=== PATIENT | female | born 1945 | race Caucasian/White ===

== ENCOUNTER 2019-10-15 14:40 | Emergency (ER) | payer MEDICARE, SELFPAY ==
[2019-10-15 14:50] VITALS: BP 172/87; PULSE 93; RESP 20; TEMP 36.7; O2SAT 98
--- NOTE | 2019-10-15 15:02 | ED.ABDPAIN ---
HPI - Abdominal Pain General Chief Complaint: Abdominal Pain Stated Complaint: dizzy, stomach pain Time Seen by Provider: 10/15/19 15:04 Related Data Allergies Allergy/AdvReac Type Severity Reaction Status Date / Time No Known Allergies Allergy Mild Unverified 07/04/18 09:00 No Known Allergies Allergy Uncoded 06/03/19 09:03 PMFSH Family History Family History (Updated 07/01/18 @ 09:51 by DOCTOR UNKNOWN) Other Cerebrovascular accident Hypertension Social History Social History Smoking status: Never smoker Alcohol intake: current
--- NOTE | 2019-10-15 15:19 | ED.DIZZY ---
HPI - Dizziness General Chief Complaint: Abdominal Pain Stated Complaint: dizzy, stomach pain Time Seen by Provider: 10/15/19 15:04 Source: patient and RN notes reviewed Mode of arrival: ambulatory Limitations: no limitations History of Present Illness HPI Narrative: 74-year-old female presents with episode of dizziness at home. She states that she bent over to sweet pickled fruit maker something off the floor and when she stood up she was significantly dizzy felt like she was going to fall and had difficulty with ambulation. Immediately after this she had nausea and a feeling of some cramping uncomfortable in her abdomen. She denied any significant abdominal pain states that was more nausea than pain. She states that the dizziness scared her and she was concerned and wanted to be evaluated. She states that she is significantly better at this time. MD elicited complaint: dizziness and difficulty walking Onset (ago): hour(s) (2-3) Timing: sudden onset Severity: moderate Description: room spinning , off-balance and difficulty walking Context: change in body position History of similar symptoms: No Exacerbating factors: change in body position Relieving factors: remaining still Associated symptoms: nausea Related Data Home Medications Medication Instructions Recorded Confirmed acetaminophen [Acetaminophen Extra 1,000 mg PO Q4-5H PRN 10/15/19 10/15/19 Strength] cetirizine [Zyrtec] 10 mg PO DAILY 10/15/19 10/15/19 cholecalciferol (vitamin D3) 2,000 unit PO DAILY 10/15/19 10/15/19 levothyroxine 88 mcg PO DAILY 10/15/19 10/15/19 losartan 50 mg PO DAILY 10/15/19 10/15/19 omeprazole 20 mg PO DAILY 10/15/19 10/15/19 pravastatin 20 mg PO HS 10/15/19 10/15/19 Allergies Allergy/AdvReac Type Severity Reaction Status Date / Time No Known Allergies Allergy Mild Unverified 07/04/18 09:00 No Known Allergies Allergy Uncoded 06/03/19 09:03 Review of Systems Constitutional: Constitutional: Denies chills and Denies fever(s) Eyes: Eyes: Reports no additional eye complaints ENT: Reports system reviewed and no additional complaints, except as documented Cardiovascular: Cardiovascular: Reports no additional cardiovascular complaints, Denies chest pain and Denies rapid heart rate Respiratory: Respiratory: Reports no additional respiratory complaints and Denies dyspnea Gastrointestinal: Gastrointestinal: Reports as per HPI and Reports no additional gastrointestinal complaints Musculoskeletal: Musculoskeletal: Reports no additional musculoskeletal complaints Neurologic: Reports system reviewed and no additional complaints, except as documented and Denies focal weakness Psychiatric: Psychiatric: Reports no additional psychiatric complaints Endocrine: Endocrine: Reports no additional endocrine complaints Hematologic/Lymphatic: Hematologic/Lymphatic: Reports no additional hematologic/lymphatic complaints PMFSH Past Medical History Medical History (Updated 10/15/19 @ 16:20 by Domenico Allen MD) Brain tumor (benign) Hypercholesteremia Hypertension Hypothyroidism Surgical History Surgical History (Updated 10/15/19 @ 16:20 by Domenico Allen MD) H/O: hysterectomy H/O: knee surgery History of cholecystectomy Family History Family History Other Cerebrovascular accident Hypertension Social History Social History Smoking status: Never smoker Alcohol intake: current Gender identity (if verbalized by the patient): Female Exam Const: General: healthy appearing, no acute distress and alert Nutritional Appearance: well nourished and obese centrally obese Orientation/consciousness: patient oriented x3 HENMT: Head: normal to inspection Ears: TM's normal bilaterally and TM abnormal General nose exam: Normal external nose present and Normal nares present Face and sinus: normal facial exam Mouth: Yes lip normal and Yes mois
[2019-10-15] MEDS: MECLIZINE HCL 25 MG TABLET PO (15:30)
[2019-10-15 15:39] LABS: Basophils Absolute Auto 0.05 K/mm3 (0.00-0.10); Basophils Percent Auto 0.6 % (0.0-1.0); Eosinophils Absolute Auto 0.27 K/mm3 (0.02-0.50); Eosinophils Percent Auto 3.4 % (1.0-6.0); Hematocrit 34.1 % (35.0-42.0); Hemoglobin 10.8 g/dL (11.7-13.8); Immature Granulocyte Absolute 0.01 K/mm3 (0.00-0.00); Immature Granulocyte Percent A 0.1 % (0.0-0.0); Lymphocytes Absolute Auto 1.47 K/mm3 (1.10-4.50); Lymphocytes Percent Auto 18.8 % (18.0-42.0); Mean Corpuscular HGB Conc 31.7 g/dL (32.0-36.0); Mean Corpuscular Hemoglobin 26.5 pg (27.0-31.0); Mean Corpuscular Volume 83.8 fL (78.0-102.0); Mean Platelet Volume 9.7 fl (9.2-11.8); Monocytes Absolute Auto 0.65 K/mm3 (0.10-0.90); Monocytes Percent Auto 8.3 % (2.0-11.0); Neutrophils Absolute Auto 5.4 K/mm3 (1.7-7.2); Neutrophils Percent Auto 68.8 % (50.0-70.0); Platelet Count Result 293 K/mm3 (150-420); Red Blood Count 4.07 M/mm3 (4.20-5.40); Red Cell Distribution Width 14.6 % (11.6-14.4); White Blood Count 7.8 K/mm3 (4.8-10.8)
[2019-10-15 15:39] LABS: Add Urine Microscopic? YES; Appearance Urine Clear (Clear); Bilirubin Urine Negative (Negative); Blood Urine Negative (Negative); Color Urine Yellow (Yellow); Glucose Urine UA Negative (Negative); Ketones Urine Trace (Negative); Leukocyte Esterase Ur Negative LEU/UL (Negative); Nitrate Urine Negative (Negative); Protein Urine Negative (Negative); Specific Grav Ur 1.025 (1.010-1.020); Urobilinogen Urine 0.2 mg/dL (0.2-1.0); pH Urine 5.5 (5.0-8.0)
[2019-10-15 15:45] LABS: Bacteria Urine 4+ /hpf; Mucus Urine Few /lpf; RBC Urine 0-2 /hpf (0-2); Squamous Epithelial Cell Urine Many /hpf (Few); WBC Urine 0-3 /hpf (0-3)
[2019-10-15 15:49] LABS: CRP 0.8 mg/dL (0.0-0.9)
[2019-10-15 16:06] LABS: Alanine Aminotransferase 19 U/L (14-59); Albumin Level 3.8 g/dL (3.4-5.0); Alkaline Phosphatase 66 U/L (46-116); Anion Gap 12.9 mmol/L (7-16); Aspartate Amino Transferase 19 U/L (15-37); Bilirubin,Total 0.3 mg/dL (0.00-1.00); Blood Urea Nitrogen 18 mg/dL (7-18); Carbon Dioxide 26 mmol/L (21-32); Chloride 103 mmol/L (98-108); Estimated CRCL calculation 44 ml/min; Estimated Glomerular Filt Rate 50; Glucose 95 mg/dL (70-99); Osmolality Calculated 287 mOsm/kg (285-295); Potassium 3.9 mmol/L (3.5-5.1); Sodium 138 mmol/L (136-145); Total Protein 7.2 g/dL (6.4-8.2)
[2019-10-15 16:23] VITALS: BP 120/68; PULSE 77; RESP 16; O2SAT 96
[2019-10-16 11:02] LABS: Immature Reticulocyte Fraction 10.7 % (2.0-16.52); Reticulocyte Hemoglobin Conten 31.4 pg (28.0-35.0); Reticulocyte Percent 1.24 % (0.50-1.50); Reticulocytes Absolute 0.05 M/mm3 (0.02-0.1)
[2019-10-16 11:21] LABS: Ferritin 61 ng/mL (8-252); Iron 34 ug/dL (50-170); Percent Iron Saturation 11 % (12-57)
== END 2019-10-15 16:24 | disposition home or self-care (01) ==
PROVIDERS: Emergency Provider Emergency Medicine; PCP Internal Medicine
DX: H81.10 Benign paroxysmal vertigo, unspecified ear (principal); E78.00 Pure hypercholesterolemia, unspecified; I10 Essential (primary) hypertension; E03.9 Hypothyroidism, unspecified
CPT/HCPCS: 36415; 80053; 81001; 82728; 83540; 83550; 85025; 85046; 86140; 99283; A9270

== ENCOUNTER 2020-01-26 07:53 | Outpatient (CLI) | payer MEDICARE, SELFPAY ==
--- NOTE | ~2020-01-26 | XR_ITS ---
EXAMINATION: XR shoulder RT min 2V DATE: 01/26/2020 08:42 INDICATION: Right shoulder pain. TECHNIQUE: 4 views of right shoulder were obtained. COMPARISON: None. FINDINGS: Bone alignment is normal. No fracture. There is mild osteoarthritis of glenohumeral joint a nd moderate osteoarthritis of acromioclavicular joint. IMPRESSION: 1. Polyarticular osteoarthritis. Reviewed, dictated and finalized at location A.
[2020-01-26 08:07] LABS: Basophils Absolute Auto 0.05 K/mm3 (0.00-0.10); Basophils Percent Auto 0.8 % (0.0-1.0); Eosinophils Absolute Auto 0.22 K/mm3 (0.02-0.50); Eosinophils Percent Auto 3.3 % (1.0-6.0); Hematocrit 37.4 % (35.0-42.0); Hemoglobin 11.7 g/dL (11.7-13.8); Immature Granulocyte Absolute 0.02 K/mm3 (0.00-0.00); Immature Granulocyte Percent A 0.3 % (0.0-0.0); Lymphocytes Absolute Auto 1.67 K/mm3 (1.10-4.50); Lymphocytes Percent Auto 25.2 % (18.0-42.0); Mean Corpuscular HGB Conc 31.3 g/dL (32.0-36.0); Mean Corpuscular Hemoglobin 26.8 pg (27.0-31.0); Mean Corpuscular Volume 85.6 fL (78.0-102.0); Mean Platelet Volume 9.1 fl (9.2-11.8); Monocytes Percent Auto 7.5 % (2.0-11.0); Neutrophils Absolute Auto 4.2 K/mm3 (1.7-7.2); Neutrophils Percent Auto 62.9 % (50.0-70.0); Platelet Count Result 307 K/mm3 (150-420); Red Blood Count 4.37 M/mm3 (4.20-5.40); Red Cell Distribution Width 14.8 % (11.6-14.4); White Blood Count 6.6 K/mm3 (4.8-10.8)
[2020-01-26 08:17] LABS: Hemoglobin A1C 5.9 % (<5.7)
[2020-01-26 08:19] LABS: Add Urine Microscopic? NO; Appearance Urine Clear (Clear); Bilirubin Urine Negative (Negative); Blood Urine Negative (Negative); Color Urine Yellow (Yellow); Glucose Urine UA Negative (Negative); Ketones Urine Negative (Negative); Leukocyte Esterase Ur Negative (Negative); Nitrate Urine Negative (Negative); Protein Urine Negative (Negative); Urobilinogen Urine 0.2 mg/dL (0.2-1.0)
[2020-01-26 08:32] LABS: MALB Creatinine Ratio 5.2 mg/g (0-30); Microalbumin Urine Random 4.1 mg/L
[2020-01-26 09:21] LABS: Erythrocyte Sedimentation Rate 27 mm/hr (0-20)
[2020-01-26 09:32] LABS: Alanine Aminotransferase 16 U/L (14-59); Alkaline Phosphatase 68 U/L (46-116); Anion Gap 9.3 mmol/L (7-16); Aspartate Amino Transferase 18 U/L (15-37); Bilirubin,Total 0.5 mg/dL (0.00-1.00); Blood Urea Nitrogen 13 mg/dL (7-18); Calcium 9.3 mg/dL (8.5-10.1); Carbon Dioxide 34 mmol/L (21-32); Chloride 103 mmol/L (98-108); Cholesterol 240 mg/dL (0-200); Creatine Kinase 81 U/L (26-192); Estimated Glomerular Filt Rate 57; Ferritin 71 ng/mL (8-252); Free T4 Free Thyroxine 1.23 ng/dL (0.76-1.46); Glucose 93 mg/dL (70-99); HDL Direct 54 mg/dL (40-60); Iron 71 ug/dL (50-170); LDL Cholesterol Calculated 155 mg/dL (<130); Osmolality Calculated 294 mOsm/kg (285-295); Percent Iron Saturation 21 % (12-57); Potassium 4.3 mmol/L (3.5-5.1); Sodium 142 mmol/L (136-145); Thyroid Stimulating Hormone 1.15 uIU/mL (0.36-3.74); Total Protein 7.1 g/dL (6.4-8.2); Triglycerides 156 mg/dL (0-150); Vitamin B12 257 pg/mL (193-986)
[2020-01-29 10:48] LABS: Red Blood Cell Folate 727 ng/mL RBC (>280)
[2020-01-30 10:33] LABS: Vitamin D 25 Hydroxy 29 ng/mL (30-100)
== END 2020-01-26 07:54 | disposition home or self-care (01) ==
LOC: CHSLAB 07:56
PROVIDERS: PCP Internal Medicine; Visit Provider Internal Medicine
DX: M81.0 Age-related osteoporosis without current pathological fracture (principal); D64.9 Anemia, unspecified; I10 Essential (primary) hypertension; E11.9 Type 2 diabetes mellitus without complications; E03.4 Atrophy of thyroid (acquired); D86.2 Sarcoidosis of lung with sarcoidosis of lymph nodes; M25.511 Pain in right shoulder
CPT/HCPCS: 36415; 73030; 80053; 80061; 81003; 82043; 82306; 82550; 82607; 82728; 82747; 83036; 83540; 83550; 84439; 84443; 84481; 85025; 85652

== ENCOUNTER 2020-02-02 08:54 | Outpatient (RCR) | payer MEDICARE, SELFPAY ==
--- NOTE | 2020-02-02 14:49 | PTOPEVAL ---
Thank you for referring Josee Roman to [facility] [place]. Please review, sign, date and return this plan of care YESY. I agree with and certify that the following plan of care is medically necessary. Referring Physician Date Admitting Provider: Attending Provider: Rossy Ray MD Referring Provider: *PT Outpatient Evaluation Start: 02/02/20 09:08 Freq: Status: Active Protocol: Document 02/02/20 09:05 [facility] (Rec: 02/02/20 10:00 [facility] [id number]) Therapy Assessment Status Assessment Status Assessment Status Evaluation Outpatient Past Medical History Neurological History Hx Other Neurological Disorders Yes: meningioma with surgical removal Cardiovascular History Hx Hypercholesterolemia Yes Hx Hypertension Yes Gastrointestinal History Hx Cholecystectomy Yes Hx Gastroesophageal Reflux Disease Yes Musculoskeletal History Hx Joint Replacement Yes: R knee Hematological History Hx Other Hematological Disorders Yes: sarcoidosis Endocrine History Hx Hypothyroidism Yes Reproductive History Hx Hysterectomy Yes Evaluation Information Problem Diagnosis back pain, shoulder pain, R knee pain Onset 01/28/20 Additional Evaluation Detail quick dash = 56% LEFS = 47% oswestry = 50% Subjective Information patient reports she has been Query Text:As Reported By Patient/ having pain in the back for Family about 2 weeks. she reports she has had pain in the shooulders for about 2-3 months. she reports no injuries to either. she reports she had an x-ray of the R shoulder showing arthritis. she reports she has pain also in the back and down into the R thigh/leg. she reports she has increased pain in the back with sitting for increased time. she reports less pain with walking . she reports she has increased pain in the R shoulder with opening jars, cans, and reaching overhead. Prior Level of Function Comments Additional Prior Level of Function patient reports she has been Comments unable to complete her home activities without meds and
--- NOTE | 2020-02-02 15:07 | PTOPEVAL ---
Thank you for referring Josee Roman to [facility]. Please review, sign, date and return this plan of care YESY. I agree with and certify that the following plan of care is medically necessary. Referring Physician Date Admitting Provider: Attending Provider: Rossy Ray MD Referring Provider: *PT Outpatient Evaluation Start: 02/02/20 09:08 Freq: Status: Active Protocol: Document 02/02/20 09:05 [facility] (Rec: 02/02/20 10:00 [facility] [id number]) Therapy Assessment Status Assessment Status Assessment Status Evaluation Outpatient Past Medical History Neurological History Hx Other Neurological Disorders Yes: meningioma with surgical removal Cardiovascular History Hx Hypercholesterolemia Yes Hx Hypertension Yes Gastrointestinal History Hx Cholecystectomy Yes Hx Gastroesophageal Reflux Disease Yes Musculoskeletal History Hx Joint Replacement Yes: R knee Hematological History Hx Other Hematological Disorders Yes: sarcoidosis Endocrine History Hx Hypothyroidism Yes Reproductive History Hx Hysterectomy Yes Evaluation Information Problem Diagnosis back pain, shoulder pain, R knee pain Onset 01/28/20 Additional Evaluation Detail quick dash = 56% LEFS = 47% oswestry = 50% Subjective Information patient reports she has been Query Text:As Reported By Patient/ having pain in the back for Family about 2 weeks. she reports she has had pain in the shooulders for about 2-3 months. she reports no injuries to either. she reports she had an x-ray of the R shoulder showing arthritis. she reports she has pain also in the back and down into the R thigh/leg. she reports she has increased pain in the back with sitting for increased time. she reports less pain with walking . she reports she has increased pain in the R shoulder with opening jars, cans, and reaching overhead. Prior Level of Function Comments Additional Prior Level of Function patient reports she has been Comments unable to complete her home activities without meds and
--- NOTE | 2020-02-02 15:09 | PTOPEVAL ---
Thank you for referring Josee Roman to [facility] Please review, sign, date and return this plan of care YESY. I agree with and certify that the following plan of care is medically necessary. Referring Physician Date Admitting Provider: Attending Provider: Rossy Ray MD Referring Provider: *PT Outpatient Evaluation Start: 02/02/20 09:08 Freq: Status: Active Protocol: Document 02/02/20 09:05 [facility] (Rec: 02/02/20 10:00 [facility] [id number]) Therapy Assessment Status Assessment Status Assessment Status Evaluation Outpatient Past Medical History Neurological History Hx Other Neurological Disorders Yes: meningioma with surgical removal Cardiovascular History Hx Hypercholesterolemia Yes Hx Hypertension Yes Gastrointestinal History Hx Cholecystectomy Yes Hx Gastroesophageal Reflux Disease Yes Musculoskeletal History Hx Joint Replacement Yes: R knee Hematological History Hx Other Hematological Disorders Yes: sarcoidosis Endocrine History Hx Hypothyroidism Yes Reproductive History Hx Hysterectomy Yes Evaluation Information Problem Diagnosis back pain, shoulder pain, R knee pain Onset 01/28/20 Additional Evaluation Detail quick dash = 56% LEFS = 47% oswestry = 50% Subjective Information patient reports she has been Query Text:As Reported By Patient/ having pain in the back for Family about 2 weeks. she reports she has had pain in the shooulders for about 2-3 months. she reports no injuries to either. she reports she had an x-ray of the R shoulder showing arthritis. she reports she has pain also in the back and down into the R thigh/leg. she reports she has increased pain in the back with sitting for increased time. she reports less pain with walking . she reports she has increased pain in the R shoulder with opening jars, cans, and reaching overhead. Prior Level of Function Comments Additional Prior Level of Function patient reports she has been Comments unable to complete her home activities without meds and
== END 2020-03-04 16:13 | disposition home or self-care (01) ==
LOC: CHSPT 08:54
PROVIDERS: PCP Internal Medicine; Visit Provider Internal Medicine
DX: M54.9 Dorsalgia, unspecified (principal); M25.561 Pain in right knee; M25.512 Pain in left shoulder; M25.511 Pain in right shoulder
CPT/HCPCS: 97014; 97110; 97140; 97161; G0283

== ENCOUNTER 2020-03-12 19:53 | Emergency (ER) | payer MEDICARE, SELFPAY ==
--- NOTE | ~2020-03-12 | XR_ITS ---
EXAMINATION: XR chest 1V portable 03/12/2020 20:32 INDICATION: Shortness of breath PROCEDURE: AP portable chest COMPARISON: 12/03/2012 FINDINGS: The lungs are clear. The cardiomediastinal silhouette is within normal limits. There are no pleural effusions. There is no pneumothorax suspected. IMPRESSION: 1: NO ACUTE CARDIOPULMONARY DISEASE. Reviewed, dictated and finalized at location A.
--- NOTE | 2020-03-12 20:05 | ECG_ITS ---
Measurements Intervals [place] Rate: 82 P: 52 AK: 162 QRS: 6 QRSD: 104 T: 17 QT: 351 QTc: 411 Interpretive Statements SINUS RHYTHM VOLTAGE CRITERIA FOR LVH BASELINE ARTIFACT- I, II, III, AVR, AVL, AVF, V1 BORDERLINE ECG Electronically Signed On 03-14-2020 7:02:42 CDT by Marcus Antunez D.O.
[2020-03-12 20:10] VITALS: BP 158/82; PULSE 95; RESP 18; TEMP 36.6; O2SAT 96
--- NOTE | 2020-03-12 20:47 | ED.SOB ---
HPI - SOB/Dyspnea General Chief Complaint: Shortness of Breath/Dyspnea Stated Complaint: 75YO female w/ known h/o allergies and recurrent sinusitis comes into ED by private vehicle w/ c/o sob for 1-2 weeks that has been coming on and off. Pt was seen by her PMD 3 days ago and started on prednisone and an abx for a sinus infection. Here for evalution. Denies chest pain, wheezing, Lower extremity swelling. Admits the SOB gets better when she takes tylenol. Related Data Home oxygen amount: none Home Medications Medication Instructions Recorded Confirmed acetaminophen [Acetaminophen Extra 1,000 mg PO Q4-5H PRN 10/15/19 10/15/19 Strength] cetirizine [Zyrtec] 10 mg PO DAILY 10/15/19 10/15/19 cholecalciferol (vitamin D3) 2,000 unit PO DAILY 10/15/19 10/15/19 levothyroxine 88 mcg PO DAILY 10/15/19 10/15/19 losartan 50 mg PO DAILY 10/15/19 10/15/19 omeprazole 20 mg PO DAILY 10/15/19 10/15/19 pravastatin 20 mg PO HS 10/15/19 10/15/19 Allergies Allergy/AdvReac Type Severity Reaction Status Date / Time No Known Allergies Allergy Mild Unverified 07/04/18 09:00 No Known Allergies Allergy Uncoded 06/03/19 09:03 Review of Systems Review of Systems: All systems reviewed & are unremarkable except as noted in HPI and below Constitutional: Constitutional: Reports no additional constitutional complaints ENT: Reports system reviewed and no additional complaints, except as documented and Reports nasal congestion Cardiovascular: Cardiovascular: Reports no additional cardiovascular complaints Respiratory: Respiratory: Denies chest congestion, Denies cough, Reports dyspnea and Denies wheezing Gastrointestinal: Gastrointestinal: Reports no additional gastrointestinal complaints Genitourinary: Genitourinary: Reports no additional female genitourinary complaints Musculoskeletal: Musculoskeletal: Reports no additional musculoskeletal complaints Neurologic: Reports system reviewed and no additional complaints, except as documented Psychiatric: Psychiatric: Reports no additional psychiatric complaints Endocrine: Endocrine: Reports no additional endocrine complaints Hematologic/Lymphatic: Hematologic/Lymphatic: Reports no additional hematologic/lymphatic complaints Allergic/Immunologic: Allergic/Immunologic: Reports no additional allergic/immunologic complaints PMFSH Past Medical History Medical History Brain tumor (benign) Hypercholesteremia Hypertension Hypothyroidism Surgical History Surgical History H/O: hysterectomy H/O: knee surgery History of cholecystectomy Family History Family History Other Cerebrovascular accident Hypertension Social History Social History Smoking status: Never smoker Alcohol intake: current Gender identity (if verbalized by the patient): Female Exam Const: General: healthy appearing, no acute distress and alert Orientation/consciousness: patient oriented x3 Limitations: No altered mental status HENMT: Head: normal to inspection Eyes: Pupils: Equal, round and reactive pupils present Neck: Neck: normal visual inspection Chest: Chest palpation & inspection: normal inspection of the chest Resp: Effort & Inspection: normal respiratory effort, not labored, no retractions, not tachypneic and no use of accessory muscles Auscultation: clear to auscultation bilaterally, no crackles, no rales, no rhonchi, no wheezes, breath sounds present and lung sounds not diminished Cardio: Rate: regular rate Rhythm: regular rhythm GI: Inspection: non-distended GI Palp: Yes Soft to palpation, No Tenderness to palpation present (GI) and No Guarding due to palpation present (GI) Skin: General skin exam: normal color Neuro: General: patient oriented x3, moves al
[2020-03-12 20:53] LABS: Basophils Absolute Auto 0.03 K/mm3 (0.00-0.10); Basophils Percent Auto 0.3 % (0.0-1.0); Eosinophils Absolute Auto 0.01 K/mm3 (0.02-0.50); Eosinophils Percent Auto 0.1 % (1.0-6.0); Hematocrit 35.6 % (35.0-42.0); Hemoglobin 11.2 g/dL (11.7-13.8); Immature Granulocyte Absolute 0.03 K/mm3 (0.00-0.00); Immature Granulocyte Percent A 0.3 % (0.0-0.0); Lymphocytes Percent Auto 10.5 % (18.0-42.0); Mean Corpuscular HGB Conc 31.5 g/dL (32.0-36.0); Mean Corpuscular Hemoglobin 27.1 pg (27.0-31.0); Mean Corpuscular Volume 86.2 fL (78.0-102.0); Mean Platelet Volume 9.7 fl (9.2-11.8); Monocytes Absolute Auto 0.57 K/mm3 (0.10-0.90); Monocytes Percent Auto 5.4 % (2.0-11.0); Neutrophils Absolute Auto 8.7 K/mm3 (1.7-7.2); Neutrophils Percent Auto 83.4 % (50.0-70.0); Platelet Count Result 343 K/mm3 (150-420); Red Blood Count 4.13 M/mm3 (4.20-5.40); Red Cell Distribution Width 14.3 % (11.6-14.4); White Blood Count 10.5 K/mm3 (4.8-10.8)
[2020-03-12 21:07] LABS: Partial Thromboplastin Time 28.9 SEC (22.3-31.6); Prothrombin Time 10.7 Seconds (9.64-11.0)
[2020-03-12 21:15] LABS: BNP 109 pg/mL (0-100)
[2020-03-12 21:20] LABS: Influenza Control Valid (Valid)
[2020-03-12 21:29] LABS: Alanine Aminotransferase 20 U/L (14-59); Albumin Level 3.9 g/dL (3.4-5.0); Alkaline Phosphatase 80 U/L (46-116); Anion Gap 7.6 mmol/L (7-16); Aspartate Amino Transferase 17 U/L (15-37); Bilirubin,Total 0.3 mg/dL (0.00-1.00); Blood Urea Nitrogen 14 mg/dL (7-18); Calcium 9.3 mg/dL (8.5-10.1); Carbon Dioxide 30 mmol/L (21-32); Chloride 105 mmol/L (98-108); Estimated CRCL calculation 39 ml/min; Estimated Glomerular Filt Rate 44; Glucose 145 mg/dL (70-99); Osmolality Calculated 291 mOsm/kg (285-295); Potassium 3.6 mmol/L (3.5-5.1); Sodium 139 mmol/L (136-145); Total Protein 7.7 g/dL (6.4-8.2)
[2020-03-12 21:32] LABS: Troponin I < 0.02 ng/mL (0.00-0.056)
[2020-03-12 21:35] VITALS: BP 133/77; PULSE 72; RESP 16; O2SAT 94
[2020-03-12 22:03] VITALS: RESP 16; O2SAT 95
[2020-03-14 12:00] LABS: SARS-CoV-2 RNA PCR Negative
== END 2020-03-12 22:03 | disposition home or self-care (01) ==
PROVIDERS: Emergency Provider Family Medicine; PCP Internal Medicine
DX: J06.9 Acute upper respiratory infection, unspecified (principal); J01.90 Acute sinusitis, unspecified; E78.00 Pure hypercholesterolemia, unspecified; I10 Essential (primary) hypertension; E03.9 Hypothyroidism, unspecified
CPT/HCPCS: 36415; 71045; 80053; 83880; 84484; 85025; 85610; 85730; 87635; 87804; 93005; 99284; C9803; U0003

== ENCOUNTER 2020-03-22 10:12 | Outpatient (CLI) | payer MEDICARE, SELFPAY ==
--- NOTE | ~2020-03-22 | CT_ITS ---
EXAMINATION: CT sinus wo con DATE: 03/22/2020 10:30 INDICATION: Eye pain/pressure. Chronic congestion. Headache. Dizziness. Brain benign tumor removed in the . TECHNIQUE: Computed tomography (CT) of the paranasal sinuses was performed without contrast. Iterativ e reconstruction technique was employed. Exam dose: 270.86 mGy-cm total exam DLP. COMPARISON: None FINDINGS: Status post left craniotomy. There is leftward bowing of the nasal septum. There is interlamellar cell of both middle nasal turbinates, more prominent on the right. Right middl e nasal turbinate is more prominent compared to the left. The nasal turbinates are otherwise prominen t but relatively symmetric in size. The ostiomeatal units are patent bilaterally. There is a 9 x 20 mm soft tissue density at the anterior lower right maxillary sinus, consistent with polyp or mucous retention cyst. There is an approximately 9 x 14.5 mm soft tissue opacity at the anterior medial lower aspect of the left maxillary sinus, also likely a polyp or mucous retention cyst. The paranasal sinuses are otherwise normally developed and aerated. The mastoid air cells are aerated . Middle and inner ear apparatus appear unremarkable. IMPRESSION: Leftward bowing of nasal septum Interlamellar cell of both middle nasal turbinates, more prominent on the right Polyp or mucous retention cyst of each maxillary sinus Reviewed, dictated and finalized at Location A. Reviewed, dictated and finalized at location A.
== END 2020-03-22 10:13 | disposition home or self-care (01) ==
LOC: CHSIMG 10:14
PROVIDERS: PCP Internal Medicine; Visit Provider Internal Medicine
DX: R42 Dizziness and giddiness (principal); R20.0 Anesthesia of skin; J32.9 Chronic sinusitis, unspecified
CPT/HCPCS: 70486

== ENCOUNTER 2020-03-26 06:48 | Outpatient (CLI) | payer MEDICARE, SELFPAY ==
--- NOTE | ~2020-03-26 | MR_ITS ---
EXAMINATION: MR brain/brain stem wo con DATE: 03/26/2020 07:51 INDICATION: Dizziness. TECHNIQUE: Magnetic resonance imaging (MRI) of the brain and brainstem was performed without intraven ous contrast. Sequences included sagittal and axial T1-weighted FSE, axial diffusion-weighted FS EPI, coronal T2*-weighted GRE, axial T2-weighted FLAIR Propeller, and axial T2-weighted Propeller. Appare nt diffusion coefficient (ADC) maps were created. COMPARISON: Brain MRI 06/29/2015 FINDINGS: There is chronic encephalomalacia in left frontal lobe. There are changes of left-sided environmental web crawler niotomy. There are scattered areas of nonspecific increased T2-weighted signal intensity in the cereb ral white matter, deep veras nuclei, and renetta. There is no intracranial hemorrhage, acute infarction, or abnormal intracranial mass lesion. The ventricles are normal in size. The paranasal sinuses are cl ear. The orbits are normal. The mastoid air cells are normal. IMPRESSION: 1. 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 2. Stable mild nonspecific cerebral white matter disease and disease of the deep veras nuclei and renetta , which likely represents chronic small vessel ischemic disease. Reviewed, dictated and finalized at location A. IMPRESSION: 1. 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 2. Stable mild nonspecific cerebral white matter disease and disease of the liseth p veras nuclei and renetta, which likely represents chronic small vessel ischemic d isease.
== END 2020-03-26 06:49 | disposition home or self-care (01) ==
LOC: CHSIMG 06:51
PROVIDERS: PCP Internal Medicine; Visit Provider Internal Medicine
DX: R42 Dizziness and giddiness (principal); R20.0 Anesthesia of skin; J32.9 Chronic sinusitis, unspecified
CPT/HCPCS: 70551

== ENCOUNTER 2020-05-11 08:34 | Outpatient (CLI) | payer MEDICARE, SELFPAY ==
[2020-05-11 10:29] LABS: Cholesterol 167 mg/dL (0-200); Creatine Kinase 85 U/L (26-192); HDL Direct 61 mg/dL (40-60); LDL Cholesterol Calculated 78 mg/dL (<130); Triglycerides 138 mg/dL (0-150); Vitamin B12 948 pg/mL (193-986)
== END 2020-05-11 08:35 | disposition home or self-care (01) ==
LOC: CHSLAB 08:36
PROVIDERS: PCP Internal Medicine; Visit Provider Internal Medicine
DX: E53.8 Deficiency of other specified B group vitamins (principal); E78.2 Mixed hyperlipidemia
CPT/HCPCS: 36415; 80061; 82550; 82607

== ENCOUNTER 2020-07-28 14:58 | Outpatient (CLI) | payer MEDICARE, SELFPAY ==
[2020-07-28 15:49] LABS: SARS-CoV-2 Ag Negative (Negative)
== END 2020-07-28 14:59 | disposition home or self-care (01) ==
LOC: CHSLAB 15:01
PROVIDERS: PCP Internal Medicine; Visit Provider Internal Medicine
DX: Z20.828 Contact with and (suspected) exposure to other viral communicable diseases (principal)
CPT/HCPCS: 87426

== ENCOUNTER 2020-08-02 10:40 | Outpatient (CLI) | payer MEDICARE, SELFPAY ==
[2020-08-02 10:50] LABS: Basophils Absolute Auto 0.06 K/mm3 (0.00-0.10); Basophils Percent Auto 0.8 % (0.0-1.0); Eosinophils Percent Auto 2.7 % (1.0-6.0); Hematocrit 36.8 % (35.0-42.0); Hemoglobin 11.3 g/dL (11.7-13.8); Immature Granulocyte Absolute 0.02 K/mm3 (0.00-0.00); Immature Granulocyte Percent A 0.3 % (0.0-0.0); Lymphocytes Absolute Auto 1.73 K/mm3 (1.10-4.50); Lymphocytes Percent Auto 23.7 % (18.0-42.0); Mean Corpuscular HGB Conc 30.7 g/dL (32.0-36.0); Mean Corpuscular Hemoglobin 26.6 pg (27.0-31.0); Mean Corpuscular Volume 86.6 fL (78.0-102.0); Mean Platelet Volume 9.4 fl (9.2-11.8); Monocytes Absolute Auto 0.61 K/mm3 (0.10-0.90); Monocytes Percent Auto 8.4 % (2.0-11.0); Neutrophils Absolute Auto 4.7 K/mm3 (1.7-7.2); Neutrophils Percent Auto 64.1 % (50.0-70.0); Platelet Count Result 287 K/mm3 (150-420); Red Blood Count 4.25 M/mm3 (4.20-5.40); Red Cell Distribution Width 14.4 % (11.6-14.4); White Blood Count 7.3 K/mm3 (4.8-10.8)
[2020-08-02 11:00] LABS: Hemoglobin A1C 5.8 % (<5.7)
[2020-08-02 11:53] LABS: Erythrocyte Sedimentation Rate 11 mm/hr (0-20)
[2020-08-02 12:24] LABS: Alanine Aminotransferase 18 U/L (14-59); Albumin Level 4.2 g/dL (3.4-5.0); Alkaline Phosphatase 72 U/L (46-116); Anion Gap 8 mmol/L (8-16); Aspartate Amino Transferase 14 U/L (15-37); Bilirubin,Total 0.4 mg/dL (0.00-1.00); Blood Urea Nitrogen 10 mg/dL (7-18); Calcium 9.5 mg/dL (8.5-10.1); Carbon Dioxide 30 mmol/L (21-32); Chloride 103 mmol/L (98-108); Cholesterol 211 mg/dL (0-200); Creatine Kinase 99 U/L (26-192); Estimated Glomerular Filt Rate 53; Ferritin 59 ng/mL (8-252); Free T4 Free Thyroxine 1.21 ng/dL (0.76-1.46); Glucose 94 mg/dL (70-99); HDL Direct 58 mg/dL (40-60); Iron 41 ug/dL (50-170); LDL Cholesterol Calculated 126 mg/dL (<130); Osmolality Calculated 291 mOsm/kg (285-295); Percent Iron Saturation 12 % (12-57); Potassium 3.9 mmol/L (3.5-5.1); Sodium 141 mmol/L (136-145); Thyroid Stimulating Hormone 0.65 uIU/mL (0.36-3.74); Total Protein 7.3 g/dL (6.4-8.2); Triglycerides 135 mg/dL (0-150)
[2020-08-02 12:29] LABS: CRP < 0.2 mg/dL (0.0-0.9); Vitamin B12 > 2000 pg/mL (193-986)
[2020-08-10 19:18] LABS: Angiotensin Converting Enzyme 20 U/L (9-67)
== END 2020-08-02 10:41 | disposition home or self-care (01) ==
PROVIDERS: PCP Internal Medicine; Visit Provider Internal Medicine
DX: E03.4 Atrophy of thyroid (acquired) (principal); E11.9 Type 2 diabetes mellitus without complications; I12.9 Hypertensive chronic kidney disease with stage 1 through stage 4 chronic kidney disease, or unspecified chronic kidney disease; E78.2 Mixed hyperlipidemia; R53.82 Chronic fatigue, unspecified; D86.2 Sarcoidosis of lung with sarcoidosis of lymph nodes; D64.9 Anemia, unspecified; N18.1 Chronic kidney disease, stage 1; E53.8 Deficiency of other specified B group vitamins; R30.0 Dysuria
CPT/HCPCS: 36415; 80053; 80061; 82164; 82550; 82607; 82728; 83036; 83540; 83550; 84439; 84443; 85025; 85652; 86140

== ENCOUNTER 2020-11-03 09:10 | Outpatient (CLI) | payer MEDICARE, SELFPAY ==
[2020-11-03 09:22] LABS: Basophils Absolute Auto 0.06 K/mm3 (0.00-0.10); Eosinophils Absolute Auto 0.27 K/mm3 (0.02-0.50); Eosinophils Percent Auto 4.3 % (1.0-6.0); Hematocrit 35.8 % (35.0-42.0); Hemoglobin 11.1 g/dL (11.7-13.8); Immature Granulocyte Absolute 0.02 K/mm3 (0.00-0.00); Immature Granulocyte Percent A 0.3 % (0.0-0.0); Lymphocytes Absolute Auto 1.82 K/mm3 (1.10-4.50); Mean Corpuscular Hemoglobin 26.9 pg (27.0-31.0); Mean Corpuscular Volume 86.9 fL (78.0-102.0); Neutrophils Absolute Auto 3.6 K/mm3 (1.7-7.2); Neutrophils Percent Auto 57.4 % (50.0-70.0); Platelet Count Result 271 K/mm3 (150-420); Red Blood Count 4.12 M/mm3 (4.20-5.40); Red Cell Distribution Width 14.7 % (11.6-14.4); White Blood Count 6.3 K/mm3 (4.8-10.8)
[2020-11-03 10:46] LABS: Ferritin 47 ng/mL (8-252); Iron 42 ug/dL (50-170); Percent Iron Saturation 14 % (12-57)
== END 2020-11-03 09:11 | disposition home or self-care (01) ==
LOC: CHSLAB 09:11
PROVIDERS: PCP Internal Medicine; Visit Provider Internal Medicine
DX: D50.9 Iron deficiency anemia, unspecified (principal)
CPT/HCPCS: 36415; 82728; 83540; 83550; 85025

== ENCOUNTER 2020-12-13 08:48 | Outpatient (CLI) | payer MEDICARE, SELFPAY ==
[2020-12-13 09:08] LABS: Basophils Absolute Auto 0.06 K/mm3 (0.00-0.10); Basophils Percent Auto 0.8 % (0.0-1.0); Eosinophils Absolute Auto 0.32 K/mm3 (0.02-0.50); Eosinophils Percent Auto 4.4 % (1.0-6.0); Hematocrit 36.7 % (35.0-42.0); Hemoglobin 11.3 g/dL (11.7-13.8); Immature Granulocyte Absolute 0.02 K/mm3 (0.00-0.00); Immature Granulocyte Percent A 0.3 % (0.0-0.0); Lymphocytes Absolute Auto 1.72 K/mm3 (1.10-4.50); Lymphocytes Percent Auto 23.6 % (18.0-42.0); Mean Corpuscular HGB Conc 30.8 g/dL (32.0-36.0); Mean Corpuscular Hemoglobin 26.8 pg (27.0-31.0); Mean Corpuscular Volume 87.2 fL (78.0-102.0); Mean Platelet Volume 9.4 fl (9.2-11.8); Monocytes Absolute Auto 0.58 K/mm3 (0.10-0.90); Neutrophils Absolute Auto 4.6 K/mm3 (1.7-7.2); Neutrophils Percent Auto 62.9 % (50.0-70.0); Platelet Count Result 297 K/mm3 (150-420); Red Blood Count 4.21 M/mm3 (4.20-5.40); White Blood Count 7.3 K/mm3 (4.8-10.8)
[2020-12-13 10:11] LABS: Ferritin 43 ng/mL (8-252); Iron 33 ug/dL (50-170); Percent Iron Saturation 11 % (12-57)
== END 2020-12-13 08:49 | disposition home or self-care (01) ==
LOC: CHSLAB 08:49
PROVIDERS: PCP Internal Medicine; Visit Provider Internal Medicine
DX: D50.9 Iron deficiency anemia, unspecified (principal)
CPT/HCPCS: 36415; 82728; 83540; 83550; 85025

== ENCOUNTER 2020-12-23 08:52 | Outpatient (CLI) | payer MEDICARE, SELFPAY ==
--- NOTE | 2020-12-23 09:15 | PC.NURSE ---
Patient here for IV infusion of Venofer. Tolerated IV start well. Sitting up in recliner resting, call light provided and instructed how to use.
[2020-12-23 09:25] VITALS: BP 174/76; PULSE 76; RESP 18; TEMP 36.3; O2SAT 98
[2020-12-23] MEDS: IRON SUCROSE COMPLEX 300 MG in SODIUM CHLORIDE 0.9% IV 250 ML 125 MG IVPB (09:29)
--- NOTE | 2020-12-23 11:35 | PC.NURSE ---
Patient tolerated IV infusion of Venofer well. IV site removed, tip intact. Dressing applied to site. Next appt made with Infusion nurse. Patient denies any questions or concerns at discharge. Patient left ambulatory.
== END 2020-12-23 08:53 | disposition home or self-care (01) ==
LOC: CHSTREATRM 08:55
PROVIDERS: PCP Internal Medicine; Visit Provider Internal Medicine
DX: D50.9 Iron deficiency anemia, unspecified (principal)
CPT/HCPCS: 96365; 96366; J1756; J7050

== ENCOUNTER 2021-01-03 08:48 | Outpatient (CLI) | payer MEDICARE, SELFPAY ==
[2021-01-03 09:10] VITALS: BP 123/67; PULSE 68; RESP 16; TEMP 36.7; O2SAT 98
[2021-01-03] MEDS: IRON SUCROSE COMPLEX 300 MG in SODIUM CHLORIDE 0.9% IV 235 ML 125 MG IVPB (09:10)
[2021-01-03 10:48] VITALS: BMI 35.9
--- NOTE | 2021-01-03 11:28 | PC.NURSE ---
Patient tolerated #2 of 3 IV Venofer infusions well. No concerns. Patient states, I think it help some. I breathing better. Safe exit of hospital. Will return January 17, 2021.
== END 2021-01-03 08:49 | disposition home or self-care (01) ==
LOC: CHSTREATRM 08:52
PROVIDERS: PCP Internal Medicine; Visit Provider Internal Medicine
DX: D50.9 Iron deficiency anemia, unspecified (principal)
CPT/HCPCS: 96365; 96366; J1756; J7050

== ENCOUNTER 2021-01-17 08:48 | Outpatient (CLI) | payer MEDICARE, SELFPAY ==
[2021-01-17] MEDS: IRON SUCROSE COMPLEX 300 MG in SODIUM CHLORIDE 0.9% IV 250 ML 125 MG IVPB (09:11)
[2021-01-17 09:16] VITALS: BP 128/64; PULSE 68; RESP 14; O2SAT 98
--- NOTE | 2021-01-17 11:03 | PC.NURSE ---
Patient here for #3 of 3 IV Venofer infusion. No concerns. Patient states, I think I feel I have a little more pep. Reviewed medication with patient. IV Venofer administered. Tolerated well. Safe exit of hospital.
== END 2021-01-17 08:49 | disposition home or self-care (01) ==
LOC: CHSTREATRM 08:51
PROVIDERS: PCP Internal Medicine; Visit Provider Internal Medicine
DX: D50.9 Iron deficiency anemia, unspecified (principal)
CPT/HCPCS: 96365; 96366; J1756; J7050

== ENCOUNTER 2021-02-24 07:28 | Outpatient (CLI) | payer MEDICARE, SELFPAY ==
[2021-02-24 07:44] LABS: Basophils Absolute Auto 0.05 K/mm3 (0.00-0.10); Basophils Percent Auto 0.7 % (0.0-1.0); Eosinophils Absolute Auto 0.27 K/mm3 (0.02-0.50); Eosinophils Percent Auto 3.7 % (1.0-6.0); Hematocrit 39.9 % (35.0-42.0); Hemoglobin 12.5 g/dL (11.7-13.8); Immature Granulocyte Absolute 0.01 K/mm3 (0.00-0.00); Immature Granulocyte Percent A 0.1 % (0.0-0.0); Lymphocytes Absolute Auto 1.58 K/mm3 (1.10-4.50); Lymphocytes Percent Auto 21.4 % (18.0-42.0); Mean Corpuscular HGB Conc 31.3 g/dL (32.0-36.0); Mean Corpuscular Hemoglobin 27.2 pg (27.0-31.0); Mean Corpuscular Volume 86.7 fL (78.0-102.0); Mean Platelet Volume 9.9 fl (9.2-11.8); Monocytes Percent Auto 8.1 % (2.0-11.0); Neutrophils Absolute Auto 4.9 K/mm3 (1.7-7.2); Platelet Count Result 280 K/mm3 (150-420); Red Cell Distribution Width 15.1 % (11.6-14.4); White Blood Count 7.4 K/mm3 (4.8-10.8)
[2021-02-24 07:46] LABS: Add Urine Microscopic? NO; Appearance Urine Clear (Clear); Bilirubin Urine Negative (Negative); Blood Urine Negative (Negative); Color Urine Light Yellow (Yellow); Glucose Urine UA Negative (Negative); Ketones Urine Negative (Negative); Leukocyte Esterase Ur Negative (Negative); Nitrate Urine Negative (Negative); Protein Urine Negative (Negative); Urobilinogen Urine 0.2 mg/dL (0.2-1.0)
[2021-02-24 07:52] LABS: Hemoglobin A1C 5.7 % (<5.7)
[2021-02-24 07:54] LABS: Creatinine Urine 60.46 mg/dL (40-278)
[2021-02-24 08:04] LABS: MALB Creatinine Ratio 21.5 mg/g (0-30); Microalbumin Urine Random < 13.0 mg/L
[2021-02-24 09:07] LABS: Alanine Aminotransferase 24 U/L (14-59); Alkaline Phosphatase 83 U/L (46-116); Anion Gap 8 mmol/L (8-16); Aspartate Amino Transferase 15 U/L (15-37); Bilirubin,Total 0.4 mg/dL (0.00-1.00); Blood Urea Nitrogen 17 mg/dL (7-18); Calcium 9.2 mg/dL (8.5-10.1); Carbon Dioxide 31 mmol/L (21-32); Chloride 107 mmol/L (98-108); Cholesterol 189 mg/dL (0-200); Creatine Kinase 67 U/L (26-192); Estimated Glomerular Filt Rate 57; Ferritin 226 ng/mL (8-252); Free T3 2.41 pg/mL (2.18-3.98); Free T4 Free Thyroxine 1.04 ng/dL (0.76-1.46); Glucose 94 mg/dL (70-99); HDL Direct 50 mg/dL (40-60); Iron 54 ug/dL (50-170); LDL Cholesterol Calculated 111 mg/dL (<130); Osmolality Calculated 303 mOsm/kg (285-295); Percent Iron Saturation 23 % (12-57); Potassium 4.3 mmol/L (3.5-5.1); Sodium 146 mmol/L (136-145); Thyroid Stimulating Hormone 1.16 uIU/mL (0.36-3.74); Total Protein 6.8 g/dL (6.4-8.2); Triglycerides 140 mg/dL (0-150)
[2021-03-01 20:25] LABS: Vitamin D 25 Hydroxy 34 ng/mL (30-100)
== END 2021-02-24 07:29 | disposition home or self-care (01) ==
LOC: CHSLAB 07:30
PROVIDERS: PCP Internal Medicine; Visit Provider Internal Medicine
DX: E03.4 Atrophy of thyroid (acquired) (principal); D50.9 Iron deficiency anemia, unspecified; E11.9 Type 2 diabetes mellitus without complications; I10 Essential (primary) hypertension; E78.2 Mixed hyperlipidemia; M81.0 Age-related osteoporosis without current pathological fracture
CPT/HCPCS: 36415; 80053; 80061; 81003; 82043; 82306; 82550; 82728; 83036; 83540; 83550; 84439; 84443; 84481; 85025

== ENCOUNTER 2021-03-13 13:36 | Outpatient (CLI) | payer MEDICARE, SELFPAY ==
[2021-03-13 14:16] LABS: Magnesium 2.2 mg/dL (1.8-2.4)
== END 2021-03-13 13:37 | disposition home or self-care (01) ==
LOC: CHSLAB 13:37
PROVIDERS: PCP Internal Medicine; Visit Provider Internal Medicine
DX: E83.42 Hypomagnesemia (principal)
CPT/HCPCS: 36415; 83735

== ENCOUNTER 2021-04-06 08:55 | Outpatient (CLI) | payer MEDICARE, SELFPAY ==
[2021-04-06 09:49] LABS: SARS-CoV-2 Ag Negative (Negative)
== END 2021-04-06 08:56 | disposition home or self-care (01) ==
LOC: CHSLAB 08:58
PROVIDERS: PCP Internal Medicine; Visit Provider Internal Medicine
DX: J06.9 Acute upper respiratory infection, unspecified (principal); Z20.822 Contact with and (suspected) exposure to COVID-19
CPT/HCPCS: 87426; C9803

== ENCOUNTER 2021-04-11 08:27 | Outpatient (CLI) | payer MEDICARE, SELFPAY ==
[2021-04-11 08:41] LABS: Basophils Absolute Auto 0.05 K/mm3 (0.00-0.10); Basophils Percent Auto 0.7 % (0.0-1.0); Eosinophils Absolute Auto 0.28 K/mm3 (0.02-0.50); Eosinophils Percent Auto 3.9 % (1.0-6.0); Hematocrit 39.9 % (35.0-42.0); Hemoglobin 12.4 g/dL (11.7-13.8); Immature Granulocyte Absolute 0.02 K/mm3 (0.00-0.00); Immature Granulocyte Percent A 0.3 % (0.0-0.0); Lymphocytes Absolute Auto 1.66 K/mm3 (1.10-4.50); Lymphocytes Percent Auto 23.2 % (18.0-42.0); Mean Corpuscular HGB Conc 31.1 g/dL (32.0-36.0); Mean Corpuscular Hemoglobin 27.4 pg (27.0-31.0); Mean Corpuscular Volume 88.1 fL (78.0-102.0); Mean Platelet Volume 9.7 fl (9.2-11.8); Monocytes Absolute Auto 0.65 K/mm3 (0.10-0.90); Monocytes Percent Auto 9.1 % (2.0-11.0); Neutrophils Absolute Auto 4.5 K/mm3 (1.7-7.2); Neutrophils Percent Auto 62.8 % (50.0-70.0); Platelet Count Result 281 K/mm3 (150-420); Red Blood Count 4.53 M/mm3 (4.20-5.40); Red Cell Distribution Width 15.3 % (11.6-14.4); White Blood Count 7.2 K/mm3 (4.8-10.8)
[2021-04-11 09:41] LABS: Erythrocyte Sedimentation Rate 17 mm/hr (0-20)
[2021-04-11 10:27] LABS: CRP < 0.2 mg/dL (0.0-0.9)
[2021-04-15 00:31] LABS: Angiotensin Converting Enzyme 14 U/L (9-67)
== END 2021-04-11 08:28 | disposition home or self-care (01) ==
LOC: CHSLAB 08:30
PROVIDERS: PCP Internal Medicine; Visit Provider Internal Medicine
DX: D86.0 Sarcoidosis of lung (principal)
CPT/HCPCS: 36415; 82164; 85025; 85652; 86140

== ENCOUNTER 2021-04-13 07:25 | Outpatient (CLI) | payer MEDICARE, SELFPAY ==
--- NOTE | ~2021-04-13 | CT_ITS ---
EXAMINATION: CT diagnostic chest w con EXAM DATE: 04/13/2021 08:40 INDICATION: Dyspnea, sarcoidosis, aortic stenosis, dyspnea, shortness of breath with exertion. Histor y lymphoma. TECHNIQUE: Spiral CT of the chest following intravenous injection of 75 mL Omnipaque 350. Axial, cor onal and sagittal images of the chest were reviewed. Coronal maximum intensity pixel images of chest reviewed. The dose-length product (DLP) for this examination was 217.72 mGy-cm. The exposure was t ailored according to patient size (auto mA exposure control), and iterative reconstruction (ASIR) was used as additional dose reduction technique. There is no prior study for comparison. FINDINGS: There is mild emphysema. The lungs are clear. No central pulmonary emboli. There are no p leural or pericardial effusions. Tracheobronchial tree is patent. There is no mediastinal, hilar or axillary lymphadenopathy. There is no pneumothorax. Heart normal in size. There is mild hernando nary arterial calcification, arterial sclerosis. There is 3 mm right superior calyceal stone. There is thoracic spondylosis without osteoblastic or osteolytic lesions identified. IMPRESSION: 1. Mild emphysema. 2. Small right nephrolithiasis. Reviewed, dictated and finalized at location B.
[2021-04-13 07:40] LABS: Estimated Glomerular Filt Rate 48
--- NOTE | 2021-04-13 08:22 | ECHO_ITS ---
Patient Info Name: Josee Roman Age: 76 years : 1945 Gender: Female Ht: 65 in Wt: 190 lbs BSA: 2.02 m2 HR: 68 bpm BP: 151 / 81 mmHg Exam Date: 04/13/2021 7:27 AM Exam Location: [facility] Patient Status: Outpatient Admit Date: 04/13/2021 Staff Ordering Physician: Rossy Ray MD Chip Person: Dariusz Chavez RDCS, RT Attending Provider: Rossy Ray MD Referring Physician: Cory GUNN; Exam Type: CA echo doppler color flow Study Info Indications I35.0 - Nonrheumatic aortic (valve) stenosis R06.00 - Dyspnea, unspecified Complete two-dimensional, color flow and Doppler transthoracic echocardiogram is performed. Summary 1. Complete two-dimensional, color flow and Doppler transthoracic echocardiogram is performed. 2. Left ventricular chamber dimension is normal. 3. Left ventricular systolic function is normal, estimated at 55-60%. 4. The left ventricular diastolic function is abnormal. 5. E/e' 13 is mildly elevated. 6. There is mild aortic valve sclerosis. 7. No pulmonary hypertension, estimated pulmonary arterial systolic pressure is 36 mmHg. 8. Dilated inferior vena cava with >50% collapse upon inspiration consistent with elevated right atrial pressure, 10 mmHg. Left Ventricle E/e' 13 is mildly elevated. Left ventricular chamber dimension is normal. Left ventricular systolic function is normal, estimated at 55-60%. The left ventricular diastolic function is abnormal. Right Ventricle Right ventricular systolic function is normal and with normal TAPSE 1.8 cm. Right ventricular chamber dimension is normal. Left Atria Left atrial chamber dimension is normal. Right Atria Right atrial chamber dimension is normal. Aortic Valve The aortic valve is trileaflet. There is mild aortic valve sclerosis. There is no aortic valve stenosis. There is no aortic valve regurgitation. Pulmonic Valve There is no pulmonic regurgitation. Mitral Valve There is no mitral valve stenosis. There is no mitral valve regurgitation. Tricuspid Valve There is no tricuspid valve regurgitation. No pulmonary hypertension, estimated pulmonary arterial systolic pressure is 36 mmHg. Pericardium/Pleural There is no pericardial effusion. Inferior Vena Cava Dilated inferior vena cava with >50% collapse upon inspiration consistent with elevated right atrial pressure, 10 mmHg. Aorta The aortic root size at the sinus of Valsalva is normal. Left Ventricular Outflow Tract Name Value Normal LVOT 2D LVOT Diameter 2.1 cm LVOT Doppler LVOT Peak Velocity 104 cm/s LVOT Peak Gradient 4 mmHg LVOT Mean Gradient 2 mmHg LVOT VTI 26 cm LVOT VTI/AV VTI Ratio 0.9 LVOT Stroke Volume 85 ml Mitral Valve Name Value Normal MV Doppler
== END 2021-04-13 07:26 | disposition home or self-care (01) ==
LOC: CHSIMG 07:27
PROVIDERS: PCP Internal Medicine; Visit Provider Internal Medicine
DX: R06.00 Dyspnea, unspecified (principal); I35.0 Nonrheumatic aortic (valve) stenosis; D86.0 Sarcoidosis of lung
CPT/HCPCS: 71260; 93306; 94060; 94726; 94729; Q9967

== ENCOUNTER 2021-06-14 10:50 | Outpatient (CLI) | payer MEDICARE, SELFPAY ==
[2021-06-14 11:11] LABS: Hematocrit 38.7 % (35.0-42.0); Hemoglobin 12.3 g/dL (11.7-13.8); Mean Corpuscular HGB Conc 31.8 g/dL (32.0-36.0); Mean Corpuscular Hemoglobin 28.4 pg (27.0-31.0); Mean Corpuscular Volume 89.4 fL (78.0-102.0); Mean Platelet Volume 9.6 fl (9.2-11.8); Platelet Count Result 299 K/mm3 (150-420); Red Blood Count 4.33 M/mm3 (4.20-5.40); Red Cell Distribution Width 14.4 % (11.6-14.4); White Blood Count 7.6 K/mm3 (4.8-10.8)
[2021-06-14 12:28] LABS: Ferritin 237 ng/mL (8-252); Iron 53 ug/dL (50-170); Percent Iron Saturation 19 % (12-57)
[2021-06-14 16:41] LABS: Basophils Absolute Auto 0.06 K/mm3 (0.00-0.10); Basophils Percent Auto 0.8 % (0.0-1.0); Eosinophils Absolute Auto 0.31 K/mm3 (0.02-0.50); Eosinophils Percent Auto 4.1 % (1.0-6.0); Immature Granulocyte Absolute 0.02 K/mm3 (0.00-0.00); Immature Granulocyte Percent A 0.3 % (0.0-0.0); Lymphocytes Percent Auto 27.5 % (18.0-42.0); Monocytes Absolute Auto 0.62 K/mm3 (0.10-0.90); Monocytes Percent Auto 8.1 % (2.0-11.0); Neutrophils Absolute Auto 4.5 K/mm3 (1.7-7.2); Neutrophils Percent Auto 59.2 % (50.0-70.0)
== END 2021-06-14 10:51 | disposition home or self-care (01) ==
LOC: CHSLAB 10:52
PROVIDERS: PCP Internal Medicine; Visit Provider Internal Medicine
DX: E53.8 Deficiency of other specified B group vitamins (principal); D50.9 Iron deficiency anemia, unspecified
CPT/HCPCS: 36415; 82728; 83540; 83550; 85025; 85027

== ENCOUNTER 2021-08-18 10:19 | Outpatient (CLI) | payer MEDICARE, SELFPAY ==
[2021-08-18 11:17] LABS: SARS-CoV-2 Ag Negative (Negative)
[2021-08-18 11:26] LABS: Influenza Control Valid (Valid)
== END 2021-08-18 10:20 | disposition home or self-care (01) ==
LOC: CHSLAB 10:21
PROVIDERS: PCP Internal Medicine; Visit Provider Internal Medicine
DX: J06.9 Acute upper respiratory infection, unspecified (principal); Z20.822 Contact with and (suspected) exposure to COVID-19
CPT/HCPCS: 87081; 87426; 87804; 87880; C9803

== ENCOUNTER 2021-08-28 16:30 | Outpatient (CLI) | payer MEDICARE, SELFPAY ==
[2021-08-28 16:43] LABS: Basophils Absolute Auto 0.06 K/mm3 (0.00-0.10); Basophils Percent Auto 0.7 % (0.0-1.0); Eosinophils Absolute Auto 0.24 K/mm3 (0.02-0.50); Eosinophils Percent Auto 2.7 % (1.0-6.0); Hematocrit 39.2 % (35.0-42.0); Hemoglobin 12.3 g/dL (11.7-13.8); Immature Granulocyte Absolute 0.02 K/mm3 (0.00-0.00); Immature Granulocyte Percent A 0.2 % (0.0-0.0); Lymphocytes Absolute Auto 2.24 K/mm3 (1.10-4.50); Lymphocytes Percent Auto 25.1 % (18.0-42.0); Mean Corpuscular HGB Conc 31.4 g/dL (32.0-36.0); Mean Corpuscular Volume 89.1 fL (78.0-102.0); Mean Platelet Volume 9.7 fl (9.2-11.8); Monocytes Absolute Auto 0.84 K/mm3 (0.10-0.90); Monocytes Percent Auto 9.4 % (2.0-11.0); Neutrophils Absolute Auto 5.5 K/mm3 (1.7-7.2); Neutrophils Percent Auto 61.9 % (50.0-70.0); Platelet Count Result 280 K/mm3 (150-420); Red Cell Distribution Width 13.8 % (11.6-14.4); White Blood Count 8.9 K/mm3 (4.8-10.8)
[2021-08-28 17:22] LABS: CRP < 0.2 mg/dL (0.0-0.9)
[2021-08-28 17:49] LABS: Erythrocyte Sedimentation Rate 23 mm/hr (0-20)
[2021-09-02 07:40] LABS: Estimated Glomerular Filt Rate 49
== END 2021-08-28 16:31 | disposition home or self-care (01) ==
LOC: CHSLAB 16:32
PROVIDERS: PCP Internal Medicine; Visit Provider Internal Medicine
DX: R51.9 Headache, unspecified (principal); H53.8 Other visual disturbances
CPT/HCPCS: 36415; 85025; 85652; 86140

== ENCOUNTER 2021-09-02 07:17 | Outpatient (CLI) | payer MEDICARE, SELFPAY ==
--- NOTE | ~2021-09-02 | MR_ITS ---
EXAMINATION: MR brain/brain stem wo/w con EXAM DATE: 09/02/2021 08:36 INDICATION: Headache/Blurring Vision. TECHNIQUE: Magnetic resonance imaging (MRI) of the brain/brain stem obtained without contrast. Sagit arina T1, axial diffusion, gradient echo (T2*), T1, T2, FLAIR sequences obtained. Patient was then inj ected with 10 cc intravenous Multihance contrast. Axial and coronal postcontrast T1 weighted sequence s obtained. Comparison is made to prior examination from 03/26/2020. FINDINGS: Surgical changes from left frontal craniotomy with large region of underlying left frontal lobe encephalomalacia unchanged. There is mild microangiopathy and cerebral atrophy. There are no are as of restricted diffusion to suggest acute infarction. Small focus of susceptibility anterior to the left cerebellar hemisphere, chronic and not clinically significant finding. No intraparenchymal bra in mass. The ventricles are normal in size. There are no extra-axial collections. Flow voids are se en in the cerebral arteries on the T2-weighted sequences consistent with their expected patency. The orbits are unremarkable. Soft tissue is unremarkable. There are no areas of abnormal enhancement on the postcontrast images. There is no significant interval change. IMPRESSION: 1. Chronic left frontal lobe encephalomalacia, overlying craniotomy. 2. Mild microangiopathy and atrophy. Reviewed, dictated and finalized at location A. TECHNICIAN
== END 2021-09-02 07:18 | disposition home or self-care (01) ==
LOC: CHSIMG 07:18
PROVIDERS: PCP Internal Medicine; Visit Provider Internal Medicine
DX: R51.9 Headache, unspecified (principal); H53.8 Other visual disturbances
CPT/HCPCS: 70553; A9577

== ENCOUNTER 2021-09-19 08:16 | Outpatient (CLI) | payer MEDICARE, SELFPAY ==
[2021-09-19 08:42] LABS: Basophils Absolute Auto 0.05 K/mm3 (0.00-0.10); Basophils Percent Auto 0.8 % (0.0-1.0); Eosinophils Percent Auto 6.3 % (1.0-6.0); Hematocrit 37.7 % (35.0-42.0); Hemoglobin 11.9 g/dL (11.7-13.8); Immature Granulocyte Absolute 0.01 K/mm3 (0.00-0.00); Immature Granulocyte Percent A 0.2 % (0.0-0.0); Lymphocytes Absolute Auto 1.39 K/mm3 (1.10-4.50); Lymphocytes Percent Auto 21.8 % (18.0-42.0); Mean Corpuscular HGB Conc 31.6 g/dL (32.0-36.0); Mean Corpuscular Hemoglobin 28.2 pg (27.0-31.0); Mean Corpuscular Volume 89.3 fL (78.0-102.0); Mean Platelet Volume 9.4 fl (9.2-11.8); Monocytes Absolute Auto 0.65 K/mm3 (0.10-0.90); Monocytes Percent Auto 10.2 % (2.0-11.0); Neutrophils Absolute Auto 3.9 K/mm3 (1.7-7.2); Neutrophils Percent Auto 60.7 % (50.0-70.0); Platelet Count Result 261 K/mm3 (150-420); Red Blood Count 4.22 M/mm3 (4.20-5.40); Red Cell Distribution Width 14.4 % (11.6-14.4); White Blood Count 6.4 K/mm3 (4.8-10.8)
[2021-09-19 08:44] LABS: Add Urine Microscopic? NO; Appearance Urine Clear (Clear); Bilirubin Urine Negative (Negative); Blood Urine Negative (Negative); Color Urine Light Yellow (Yellow); Glucose Urine UA Negative (Negative); Ketones Urine Negative (Negative); Leukocyte Esterase Ur Negative (Negative); Nitrate Urine Negative (Negative); Protein Urine Negative (Negative); Urobilinogen Urine 0.2 mg/dL (0.2-1.0)
[2021-09-19 09:40] LABS: Hemoglobin A1C 5.6 % (<5.7)
[2021-09-19 09:49] LABS: Alanine Aminotransferase 36 U/L (14-59); Albumin Level 3.9 g/dL (3.4-5.0); Alkaline Phosphatase 74 U/L (46-116); Anion Gap 7 mmol/L (8-16); Aspartate Amino Transferase 22 U/L (15-37); Bilirubin,Total 0.4 mg/dL (0.00-1.00); Blood Urea Nitrogen 17 mg/dL (7-18); Calcium 9.3 mg/dL (8.5-10.1); Carbon Dioxide 34 mmol/L (21-32); Chloride 102 mmol/L (98-108); Cholesterol 243 mg/dL (0-200); Creatine Kinase 57 U/L (26-192); Estimated Glomerular Filt Rate > 60; Ferritin 253 ng/mL (8-252); Free T3 2.52 pg/mL (2.18-3.98); Free T4 Free Thyroxine 1.03 ng/dL (0.76-1.46); Glucose 90 mg/dL (70-99); HDL Direct 49 mg/dL (40-60); Iron 59 ug/dL (50-170); LDL Cholesterol Calculated 156 mg/dL (<130); Osmolality Calculated 297 mOsm/kg (285-295); Percent Iron Saturation 23 % (12-57); Sodium 143 mmol/L (136-145); Thyroid Stimulating Hormone 0.48 uIU/mL (0.36-3.74); Triglycerides 190 mg/dL (0-150); Vitamin B12 832 pg/mL (193-986)
[2021-09-21 14:29] LABS: Vitamin D 25 Hydroxy 32 ng/mL (30-100)
== END 2021-09-19 08:17 | disposition home or self-care (01) ==
LOC: CHSLAB 08:17
PROVIDERS: PCP Internal Medicine; Visit Provider Internal Medicine
DX: E03.4 Atrophy of thyroid (acquired) (principal); I10 Essential (primary) hypertension; E78.2 Mixed hyperlipidemia; M81.0 Age-related osteoporosis without current pathological fracture; D50.9 Iron deficiency anemia, unspecified; E53.8 Deficiency of other specified B group vitamins; E11.9 Type 2 diabetes mellitus without complications
CPT/HCPCS: 36415; 80053; 80061; 81003; 82306; 82550; 82607; 82728; 83036; 83540; 83550; 84439; 84443; 84481; 85025

== ENCOUNTER 2021-10-16 12:04 | Outpatient (CLI) | payer MEDICARE, SELFPAY ==
--- NOTE | ~2021-10-16 | DEXA_ITS ---
Bone Density Report Name: GRACIA GRAVES Age: 76 Sex: Female Ethnicity: White Date of : 1945 Indication: hyperparathyroidism; height loss; hysterectomy; Referring Provider: Rossy Ray Study: Bone densitometry was performed. Exam Date: October 16, 2021 Accession number: [id number] Bone Density: Region BMD T-score Z-score Classification AP Spine(L1, L2, L3) 1.114 0.9 3.4 Normal Femoral Neck (Left) 0.722 -1.1 1.1 Osteopenia Total Hip (Left) 0.758 -1.5 0.4 Osteopenia Femoral Neck (Right) 0.753 -0.9 1.3 Normal Total Hip (Right) 0.756 -1.5 0.4 Osteopenia Femoral Neck Mean 0.738 -1.0 1.2 Normal Total Hip Mean 0.757 -1.5 0.4 Osteopenia World Health Organization criteria for BMD impression classify patients as: Normal (T-score at or above -1.0), Osteopenia (T-score between -1.0 and -2.5), or Osteoporosis (T-score at or below -2.5). Clinical Information Provided by Patient: Has used the following medications: Vitamin D Has the following medical conditions: Hyperparathyroidism, Hysterectomy Patient maximum height was 65 No regular weight bearing exercise Does not regularly consume dairy products Drinks caffeinated beverages Onset of menses at age 11 Number of children 2 Impression: The patient has low bone mass, based on the Left Total Hip T-score. Discussion: BONE DENSITY IS LOW AT ONE OR MORE SKELETAL SITES. This patient's lowest T-score is low at one or more skeletal sites. It meets the World Health Organization's (WHO) criteria for ?low bone mass? (T-score between -1.0 and -2.5). The patient's 10-year risk of fracture as calculated by FRAX is less than the threshold where pharmacological therapy is recommended by the National Osteoporosis Foundation (NOF). However, all treatment decisions require clinical judgment and consideration of individual patient factors, including patient preferences, comorbidities, previous drug use, risk factors not captured in the FRAX model (e.g., frailty, falls, vitamin D deficiency, increased bone turnover, interval significant decline in bone density) and possible under or overestimation of fracture risk by FRAX. The patient should follow a healthful lifestyle (good nutrition with adequate calcium and vitamin D, and appropriate weight-bearing exercise). Follow-Up: Consider repeating this study in 2 to 3 years to reassess this patient's status, or sooner if there is some new clinical indication. Reported by: Dr. Sandro Lundberg on 10/16/2021 12:58:00 PM. Reviewed, dictated and finalized at location AAmarilys RILEY
--- NOTE | ~2021-10-16 | MM_ITS ---
EXAMINATION: MM screening sakina BI w spike HISTORY: Screening TECHNIQUE: Craniocaudal and mediolateral oblique 3-D tomosynthesis images were obtained and synthetic 2-D images were generated. CAD analysis was submitted and interpreted. COMPARISON: Comparison to multiple prior studies sequentially, with oldest reviewed study dated 05/13. BREAST PARENCHYMAL COMPOSITION: There are scattered areas of fibroglandular density. FINDINGS: There is no evidence of suspicious mass, calcification, or architectural distortion to sugg est malignancy in either breast. There has been no suspicious interval change. IMPRESSION: 1. No mammographic evidence of malignancy. 2. Recommend routine screening mammography in one year. BI-RADS Category 1: Negative Reviewed, dictated and finalized at location A. 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
== END 2021-10-16 12:05 | disposition home or self-care (01) ==
LOC: CHSIMG 12:05
PROVIDERS: PCP Internal Medicine; Visit Provider Internal Medicine
DX: Z12.31 Encounter for screening mammogram for malignant neoplasm of breast (principal); M81.0 Age-related osteoporosis without current pathological fracture
CPT/HCPCS: 77063; 77067; 77080

== ENCOUNTER 2021-12-12 16:22 | Outpatient (CLI) | payer MEDICARE, SELFPAY ==
[2021-12-12 16:42] LABS: Basophils Absolute Auto 0.06 K/mm3 (0.00-0.10); Basophils Percent Auto 0.7 % (0.0-1.0); Eosinophils Absolute Auto 0.29 K/mm3 (0.02-0.50); Eosinophils Percent Auto 3.5 % (1.0-6.0); Hematocrit 37.1 % (35.0-42.0); Hemoglobin 11.5 g/dL (11.7-13.8); Immature Granulocyte Absolute 0.03 K/mm3 (0.00-0.00); Immature Granulocyte Percent A 0.4 % (0.0-0.0); Lymphocytes Percent Auto 28.7 % (18.0-42.0); Mean Corpuscular Hemoglobin 28.4 pg (27.0-31.0); Mean Corpuscular Volume 91.6 fL (78.0-102.0); Mean Platelet Volume 9.7 fl (9.2-11.8); Monocytes Absolute Auto 0.66 K/mm3 (0.10-0.90); Monocytes Percent Auto 7.9 % (2.0-11.0); Neutrophils Absolute Auto 4.9 K/mm3 (1.7-7.2); Neutrophils Percent Auto 58.8 % (50.0-70.0); Platelet Count Result 262 K/mm3 (150-420); Red Blood Count 4.05 M/mm3 (4.20-5.40); Red Cell Distribution Width 13.7 % (11.6-14.4); White Blood Count 8.4 K/mm3 (4.8-10.8)
[2021-12-12 17:22] LABS: Alanine Aminotransferase 19 U/L (14-59); Alkaline Phosphatase 68 U/L (46-116); Anion Gap 8 mmol/L (8-16); Aspartate Amino Transferase 15 U/L (15-37); Bilirubin,Total 0.3 mg/dL (0.00-1.00); Blood Urea Nitrogen 16 mg/dL (7-18); Calcium 9.2 mg/dL (8.5-10.1); Carbon Dioxide 31 mmol/L (21-32); Chloride 101 mmol/L (98-108); Estimated Glomerular Filt Rate 54; Ferritin 195 ng/mL (8-252); Glucose 87 mg/dL (70-99); Iron 42 ug/dL (50-170); Osmolality Calculated 290 mOsm/kg (285-295); Potassium 4.1 mmol/L (3.5-5.1); Sodium 140 mmol/L (136-145); Total Protein 6.8 g/dL (6.4-8.2)
[2021-12-15 20:11] LABS: Gliadin AB, IgG <1.0 U/mL (<15.0); Reticulin IgA Negative (Negative); TTG IGA AB <1.0 U/mL (<15.0)
== END 2021-12-12 16:23 | disposition home or self-care (01) ==
LOC: CHSLAB 16:24
PROVIDERS: PCP Internal Medicine; Visit Provider Internal Medicine
DX: D50.9 Iron deficiency anemia, unspecified (principal); R19.7 Diarrhea, unspecified
CPT/HCPCS: 36415; 80053; 82728; 83516; 83540; 85025; 86255

== ENCOUNTER 2022-01-11 10:36 | Outpatient (CLI) | payer MEDICARE, SELFPAY ==
--- NOTE | ~2022-01-11 | XR_ITS ---
EXAMINATION: XR chest 2V 01/11/2022 11:17 INDICATION: Chest pain PROCEDURE: PA and lateral views of the chest COMPARISON: 03/12/2020 FINDINGS: The lungs are clear. The cardiomediastinal silhouette is within normal limits. There are no pleural effusions. There is no pneumothorax suspected. IMPRESSION: 1: NO ACUTE CARDIOPULMONARY DISEASE. Reviewed, dictated and finalized at location A.
[2022-01-11 10:51] LABS: Basophils Absolute Auto 0.05 K/mm3 (0.00-0.10); Basophils Percent Auto 0.6 % (0.0-1.0); Eosinophils Absolute Auto 0.06 K/mm3 (0.02-0.50); Eosinophils Percent Auto 0.7 % (1.0-6.0); Hematocrit 37.2 % (35.0-42.0); Hemoglobin 11.9 g/dL (11.7-13.8); Immature Granulocyte Absolute 0.03 K/mm3 (0.00-0.00); Immature Granulocyte Percent A 0.3 % (0.0-0.0); Lymphocytes Absolute Auto 1.45 K/mm3 (1.10-4.50); Lymphocytes Percent Auto 16.6 % (18.0-42.0); Mean Corpuscular Hemoglobin 29.1 pg (27.0-31.0); Mean Platelet Volume 9.5 fl (9.2-11.8); Monocytes Absolute Auto 0.57 K/mm3 (0.10-0.90); Monocytes Percent Auto 6.5 % (2.0-11.0); Neutrophils Absolute Auto 6.6 K/mm3 (1.7-7.2); Neutrophils Percent Auto 75.3 % (50.0-70.0); Platelet Count Result 266 K/mm3 (150-420); Red Blood Count 4.09 M/mm3 (4.20-5.40); Red Cell Distribution Width 13.4 % (11.6-14.4); White Blood Count 8.8 K/mm3 (4.8-10.8)
--- NOTE | 2022-01-11 10:55 | ECG_ITS ---
Measurements Intervals Lapaz Rate: 63 P: 38 NJ: 175 QRS: 36 QRSD: 93 T: 50 QT: 373 QTc: 382 Interpretive Statements SINUS RHYTHM BASELINE ARTIFACT NORMAL ECG COMPARED TO ECG 03/12/2020 20:49:09 CRITERIA FOR LVH NO LONGER APPRECIATED. Electronically Signed On 01-11-2022 17:37:04 CDT by Saeid Sagastume M.D.
[2022-01-11 11:32] LABS: Alanine Aminotransferase 19 U/L (14-59); Alkaline Phosphatase 65 U/L (46-116); Anion Gap 5 mmol/L (8-16); Aspartate Amino Transferase 15 U/L (15-37); Bilirubin,Total 0.5 mg/dL (0.00-1.00); Blood Urea Nitrogen 14 mg/dL (7-18); Calcium 9.5 mg/dL (8.5-10.1); Carbon Dioxide 30 mmol/L (21-32); Chloride 103 mmol/L (98-108); Creatine Kinase 77 U/L (26-192); Estimated Glomerular Filt Rate 54; Ferritin 230 ng/mL (8-252); Glucose 101 mg/dL (70-99); Iron 41 ug/dL (50-170); Osmolality Calculated 286 mOsm/kg (285-295); Percent Iron Saturation 14 % (12-57); Potassium 4.1 mmol/L (3.5-5.1); Sodium 138 mmol/L (136-145); Total Protein 7.4 g/dL (6.4-8.2); Troponin I 9.8 ng/L (0.00-60.4)
== END 2022-01-11 10:37 | disposition home or self-care (01) ==
LOC: CHSLAB 10:40
PROVIDERS: PCP Internal Medicine; Visit Provider Internal Medicine
DX: R07.9 Chest pain, unspecified (principal); D50.9 Iron deficiency anemia, unspecified
CPT/HCPCS: 36415; 71046; 80053; 82550; 82553; 82728; 83540; 83550; 84484; 85025; 93005

== ENCOUNTER 2022-03-26 08:34 | Outpatient (CLI) | payer MEDICARE, SELFPAY ==
[2022-03-26 08:58] LABS: Basophils Absolute Auto 0.07 K/mm3 (0.00-0.10); Basophils Percent Auto 0.8 % (0.0-1.0); Eosinophils Absolute Auto 0.27 K/mm3 (0.02-0.50); Eosinophils Percent Auto 3.2 % (1.0-6.0); Hematocrit 37.3 % (35.0-42.0); Hemoglobin 11.6 g/dL (11.7-13.8); Immature Granulocyte Absolute 0.02 K/mm3 (0.00-0.00); Immature Granulocyte Percent A 0.2 % (0.0-0.0); Lymphocytes Absolute Auto 1.76 K/mm3 (1.10-4.50); Lymphocytes Percent Auto 21.1 % (18.0-42.0); Mean Corpuscular HGB Conc 31.1 g/dL (32.0-36.0); Mean Corpuscular Hemoglobin 28.6 pg (27.0-31.0); Mean Corpuscular Volume 91.9 fL (78.0-102.0); Monocytes Absolute Auto 0.67 K/mm3 (0.10-0.90); Neutrophils Absolute Auto 5.6 K/mm3 (1.7-7.2); Neutrophils Percent Auto 66.7 % (50.0-70.0); Platelet Count Result 276 K/mm3 (150-420); Red Blood Count 4.06 M/mm3 (4.20-5.40); Red Cell Distribution Width 13.6 % (11.6-14.4); White Blood Count 8.4 K/mm3 (4.8-10.8)
[2022-03-26 09:03] LABS: Add Urine Microscopic? NO; Appearance Urine Clear (Clear); Bilirubin Urine Negative (Negative); Blood Urine Negative (Negative); Color Urine Light Yellow (Yellow); Glucose Urine UA Negative (Negative); Ketones Urine Negative (Negative); Leukocyte Esterase Ur Negative (Negative); Nitrate Urine Negative (Negative); Protein Urine Negative (Negative); Specific Grav Ur 1.015 (1.010-1.020); Urobilinogen Urine 0.2 mg/dL (0.2-1.0)
[2022-03-26 09:14] LABS: Creatinine Urine 66.88 mg/dL (40-278); MALB Creatinine Ratio 19.4 mg/g (0-30); Microalbumin Urine Random < 13.0 mg/L
[2022-03-26 09:27] LABS: Hemoglobin A1C 4.9 % (<5.7)
[2022-03-26 09:45] LABS: Alanine Aminotransferase 17 U/L (14-59); Alkaline Phosphatase 66 U/L (46-116); Anion Gap 5 mmol/L (8-16); Aspartate Amino Transferase 15 U/L (15-37); Bilirubin,Total 0.3 mg/dL (0.00-1.00); Blood Urea Nitrogen 18 mg/dL (7-18); Calcium 9.2 mg/dL (8.5-10.1); Carbon Dioxide 32 mmol/L (21-32); Chloride 105 mmol/L (98-108); Cholesterol 196 mg/dL (0-200); Creatine Kinase 123 U/L (26-192); Estimated Glomerular Filt Rate 58; Free T3 2.18 pg/mL (2.18-3.98); Free T4 Free Thyroxine 0.91 ng/dL (0.76-1.46); Glucose 94 mg/dL (70-99); HDL Direct 64 mg/dL (40-60); LDL Cholesterol Calculated 112 mg/dL (<130); Osmolality Calculated 295 mOsm/kg (285-295); Potassium 4.3 mmol/L (3.5-5.1); Sodium 142 mmol/L (136-145); Total Protein 7.3 g/dL (6.4-8.2); Triglycerides 100 mg/dL (0-150); Vitamin B12 1703 pg/mL (193-986)
[2022-03-31 20:05] LABS: Vitamin D 25 Hydroxy 43 ng/mL (30-100)
== END 2022-03-26 08:35 | disposition home or self-care (01) ==
LOC: CHSLAB 08:35
PROVIDERS: PCP Internal Medicine; Visit Provider Internal Medicine
DX: E78.2 Mixed hyperlipidemia (principal); I10 Essential (primary) hypertension; E03.4 Atrophy of thyroid (acquired); M81.0 Age-related osteoporosis without current pathological fracture; E11.9 Type 2 diabetes mellitus without complications; E53.8 Deficiency of other specified B group vitamins
CPT/HCPCS: 36415; 80053; 80061; 81003; 82043; 82306; 82550; 82607; 83036; 84439; 84443; 84481; 85025

== ENCOUNTER 2022-04-11 12:54 | Outpatient (CLI) | payer MEDICARE, SELFPAY ==
[2022-04-11 13:08] LABS: Immature Reticulocyte Fraction 9.1 % (2.0-16.52); Reticulocyte Hemoglobin Conten 31.8 pg (28.0-35.0); Reticulocyte Percent 1.34 % (0.50-1.50); Reticulocytes Absolute 0.05 M/mm3 (0.02-0.1)
[2022-04-11 13:37] LABS: Ferritin 179 ng/mL (8-252); Iron 43 ug/dL (50-170)
== END 2022-04-11 12:55 | disposition home or self-care (01) ==
LOC: CHSLAB 12:56
PROVIDERS: PCP Internal Medicine; Visit Provider Internal Medicine
DX: D50.9 Iron deficiency anemia, unspecified (principal)
CPT/HCPCS: 36415; 82728; 83540; 85046

== ENCOUNTER 2022-05-10 01:50 | Day surgery (SDC) | payer MEDICARE, SELFPAY ==
[2022-04-20 15:12] VITALS: BMI 31.8
[2022-05-10 06:33] VITALS: BP 149/71; PULSE 71; RESP 18; TEMP 36.3; O2SAT 100
[2022-05-10] MEDS: LACTATED RINGERS 1,000 ML 150 ML IV CONT (06:47)
--- NOTE | 2022-05-10 07:23 | WPDANESEPPF ---
Anes - Initial Pre Proc Eval Procedure: Operation Date: 05/10/22 07:30 Proposed Procedures p Esophagogastroduodenoscopy & Colonoscopy - Domenico Lloyd MD Date/Time: 05/10/22 07:23 Surgeon: Domenico Lloyd MD Pre Op Diagnosis: AV, diarrhea Patient Data Age: 77 Gender: F Height: 1.63 m Weight: 83.9 kg Last Vital Signs Temp 97.3 F L 05/10/22 06:33 Pulse 71 05/10/22 06:33 Resp 18 05/10/22 06:33 BP 149/71 H 05/10/22 06:33 Pulse Ox 100 05/10/22 06:33 O2 Del Method Room Air 05/10/22 06:33 Allergies Allergy/AdvReac Type Severity Reaction Status Date / Time No Known Allergies Allergy Mild Verified 05/10/22 06:31 Home Medications Medication Instructions Recorded Confirmed Type acetaminophen 500 mg tablet 1,000 mg PO Q4-5H PRN Pain 10/15/19 05/10/22 History (Acetaminophen Extra Strength) cetirizine 10 mg tablet (Zyrtec) 10 mg PO DAILY 10/15/19 05/10/22 History cholecalciferol (vitamin D3) 50 2,000 unit PO DAILY 10/15/19 05/10/22 History mcg (2,000 unit) chewable tablet levothyroxine 88 mcg tablet 88 mcg PO DAILY 10/15/19 05/10/22 History losartan 50 mg tablet 50 mg PO DAILY 10/15/19 05/10/22 History omeprazole 20 mg tablet,delayed 20 mg PO DAILY 10/15/19 05/10/22 History release pravastatin 20 mg tablet 20 mg PO HS 10/15/19 05/10/22 History dicyclomine 10 mg capsule See Rx Instructions .Route 04/23/22 05/10/22 Rx .COMPLEX #270 caps Patient hx anesthesia problems: none Family hx anesthesia problems: none Results Review: All pre-operative results and documents have been reviewed as part of the pre-operative evaluation. [facility] Past Medical History Medical History (Updated 01/24/22 @ 11:41 by LOS SeoN-C) Brain tumor (benign) Diarrhea Generalized abdominal pain Hypercholesteremia Hypertension Hypothyroidism AV (iron deficiency anemia) Obese Surgical History Surgical History H/O: hysterectomy H/O: knee surgery History of cholecystectomy Family History Family History Other Cerebrovascular accident Hypertension Social History Social History Smoking status: Never smoker Alcohol intake: current Drinks per week: 1 Substance use: never Substance use type: does not use Living arrangements: with family Gender identity (if verbalized by the patient): Female Spiritual care concerns: No Anes - Eval Final PreProcedure Day of Procedure 05/10/22 07:23 Patient weight: obese Heart: regular rate and rhythm Lungs: clear to auscultation Airway: Mallampati scale class II Neurological: alert and oriented Last oral intake: >/= 8 hours ASA classification: III Emergent: no Anesthetic plan: proceed Anesthesia type and monitoring: general GIVS and standard monitoring Results Review: All pre-operative results and documents have been reviewed as part of the pre-operative evaluation. Informed Consent: The patient's anesthetic plan and its attendant risks and benefits were discussed with the patient/family/POA. Questions were solicited and answers provided to the satisfaction of the patient/family/POA.
[2022-05-10] MEDS: BENZOCAINE (*SP) 60 ML SPRAY CAN (HURRICAINE) 1 SPRAY MUCOUS MEM (07:34)
--- NOTE | 2022-05-10 07:38 | PM.HPGS ---
History of Present Illness History of Present Illness Consent: Risks, benefits, and alternatives have been discussed and questions answered. Patient agrees to proceed with procedure. Chief complaint: AV, diarrhea Narrative: Josee Roman is a 77 year old female I am asked to see for both colonoscopy an EGD. Patient has complaints of diarrhea gas bloating. She has a prior history of colon polyps. Recent lab studies reveals no evidence of anemia but iron was low ferritin was found to be normal. No obvious bleeding described. Diarrhea is improved. Patient has been unable to take any iron because of constipation. Review of Systems Review of Systems: Review of systems noncontributory. [facility] Past Medical History Medical History (Updated 05/10/22 @ 07:41 by Domenico Lloyd MD) Brain tumor (benign) Diarrhea Generalized abdominal pain Hypercholesteremia Hypertension Hypothyroidism AV (iron deficiency anemia) Obese Surgical History Surgical History H/O: hysterectomy H/O: knee surgery History of cholecystectomy Family History Family History Other Cerebrovascular accident Hypertension Social History Social History Smoking status: Never smoker Alcohol intake: current Drinks per week: 1 Substance use: never Substance use type: does not use Living arrangements: with family Gender identity (if verbalized by the patient): Female Spiritual care concerns: No Meds Home Medications and Allergies Home Medications Medication Instructions Recorded Confirmed Type acetaminophen 500 mg tablet 1,000 mg PO Q4-5H PRN Pain 10/15/19 05/10/22 History (Acetaminophen Extra Strength) cetirizine 10 mg tablet (Zyrtec) 10 mg PO DAILY 10/15/19 05/10/22 History cholecalciferol (vitamin D3) 50 2,000 unit PO DAILY 10/15/19 05/10/22 History mcg (2,000 unit) chewable tablet levothyroxine 88 mcg tablet 88 mcg PO DAILY 10/15/19 05/10/22 History losartan 50 mg tablet 50 mg PO DAILY 10/15/19 05/10/22 History omeprazole 20 mg tablet,delayed 20 mg PO DAILY 10/15/19 05/10/22 History release pravastatin 20 mg tablet 20 mg PO HS 03/05/20 09/29/22 History dicyclomine 10 mg capsule See Rx Instructions .Route 04/23/22 05/10/22 Rx .COMPLEX #270 caps Allergies Allergy/AdvReac Type Severity Reaction Status Date / Time No Known Allergies Allergy Mild Verified 05/10/22 06:31 Vital Signs Vital Signs - 24 hr 05/10/22 06:33 Temperature 97.3 F L Pulse Rate 71 Respiratory Rate 18 Blood Pressure 149/71 H Pulse Oximetry 100 Oxygen Delivery Room Air Exam Narrative: Physical exam reveals patient to be alert. Vital signs stable. HEENT exam is unremarkable. Patient is anicteric. Lungs are clear to auscultation and percussion. Heart is without murmur or extra sounds. Abdomen bowel sounds present soft nontender with no hepatosplenomegaly. Digital external rectal exam is normal. Assessment and Plan Assessment and plan (1) Diarrhea: Code(s): R19.7 - Diarrhea, unspecified Status: Acute Assessment and Plan: Patient has some diarrhea most consistent with irritable bowel syndrome. Plan is for fiber supplementation. Colonoscopy is requested will be performed because she has a prior history of colon polyps. There were no to patient considering iron deficiency however she is not anemic as her hemoglobin is normal. Ferritin is normal suggesting she is not iron deficient but rather may have a chronic disease pattern to her iron studies. (2) Generalized abdominal pain: Code(s): R10.84 - Generalized abdominal pain Status: Acute Assessment and Plan: Intermittent vague abdominal discomfort most likely consistent with irritable bowel syndrome. GI endoscopy a suggested both colonoscopy an EGD arrange for
--- NOTE | 2022-05-10 07:40 | SUR.OPER ---
EGD: [id number] COLON: [id number]
[2022-05-10 08:01] VITALS: BP 113/49; PULSE 63; RESP 18; O2SAT 100
[2022-05-10 08:11] VITALS: BP 122/43; PULSE 60; RESP 21; O2SAT 100
[2022-05-10 08:21] VITALS: BP 117/48; PULSE 54; RESP 15; O2SAT 100
== END 2022-05-10 08:28 | disposition home or self-care (01) ==
PROVIDERS: PCP Internal Medicine; Visit Provider Internal Medicine Gastroenterology
PROC: 0DJ08ZZ Inspection of Upper Intestinal Tract, Via Natural or Artificial Opening Endoscopic (ICD-10-PCS; CPT 43235; principal; 2022-05-10 07:30)
DX: R19.7 Diarrhea, unspecified (principal); D50.9 Iron deficiency anemia, unspecified; Z86.010 Personal history of colon polyps; K64.8 Other hemorrhoids; K57.30 Diverticulosis of large intestine without perforation or abscess without bleeding; E78.00 Pure hypercholesterolemia, unspecified; E03.9 Hypothyroidism, unspecified; I10 Essential (primary) hypertension; R10.84 Generalized abdominal pain; Z90.49 Acquired absence of other specified parts of digestive tract; E66.9 Obesity, unspecified; Z68.31 Body mass index [BMI] 31.0-31.9, adult
CPT/HCPCS: 45378; 43235; J2704; J7120

== ENCOUNTER 2022-11-06 07:38 | Outpatient (CLI) | payer MEDICARE, SELFPAY ==
[2022-11-06 07:58] LABS: Basophils Absolute Auto 0.06 K/mm3 (0.00-0.10); Basophils Percent Auto 0.9 % (0.0-1.0); Eosinophils Absolute Auto 0.24 K/mm3 (0.02-0.50); Eosinophils Percent Auto 3.8 % (1.0-6.0); Hematocrit 36.6 % (35.0-42.0); Hemoglobin 11.4 g/dL (11.7-13.8); Immature Granulocyte Absolute 0.02 K/mm3 (0.00-0.00); Immature Granulocyte Percent A 0.3 % (0.0-0.0); Lymphocytes Absolute Auto 1.47 K/mm3 (1.10-4.50); Lymphocytes Percent Auto 23.3 % (18.0-42.0); Mean Corpuscular HGB Conc 31.1 g/dL (32.0-36.0); Mean Corpuscular Volume 89.9 fL (78.0-102.0); Mean Platelet Volume 9.7 fl (9.2-11.8); Monocytes Percent Auto 7.9 % (2.0-11.0); Neutrophils Percent Auto 63.8 % (50.0-70.0); Platelet Count Result 257 K/mm3 (150-420); Red Blood Count 4.07 M/mm3 (4.20-5.40); Red Cell Distribution Width 13.5 % (11.6-14.4); White Blood Count 6.3 K/mm3 (4.8-10.8)
[2022-11-06 08:03] LABS: Appearance Urine Clear (Clear); Bilirubin Urine Negative (Negative); Blood Urine Negative (Negative); Color Urine Light Yellow (Yellow); Glucose Urine UA Negative (Negative); Ketones Urine Negative (Negative); Leukocyte Esterase Ur Negative (Negative); Nitrate Urine Negative (Negative); Protein Urine Negative (Negative); Urobilinogen Urine 0.2 mg/dL (0.2-1.0)
[2022-11-06 08:05] LABS: Add Urine Microscopic? NO
[2022-11-06 08:07] LABS: Hemoglobin A1C 5.6 % (<5.7)
[2022-11-06 08:12] LABS: Creatinine Urine 85.81 mg/dL (40-278); MALB Creatinine Ratio 15.1 mg/g (0-30); Microalbumin Urine Random < 13.0 mg/L
[2022-11-06 08:59] LABS: Alanine Aminotransferase 19 U/L (14-59); Alkaline Phosphatase 62 U/L (46-116); Anion Gap 7 mmol/L (8-16); Aspartate Amino Transferase 18 U/L (15-37); Bilirubin,Total 0.5 mg/dL (0.00-1.00); Blood Urea Nitrogen 18 mg/dL (7-18); Calcium 9.3 mg/dL (8.5-10.1); Carbon Dioxide 34 mmol/L (21-32); Chloride 107 mmol/L (98-108); Cholesterol 219 mg/dL (0-200); Creatine Kinase 84 U/L (26-192); Estimated Glomerular Filt Rate 53; Ferritin 146 ng/mL (8-252); Free T3 2.39 pg/mL (2.18-3.98); HDL Direct 59 mg/dL (40-60); Iron 46 ug/dL (50-170); LDL Cholesterol Calculated 130 mg/dL (<130); Osmolality Calculated 307 mOsm/kg (285-295); Potassium 4.5 mmol/L (3.5-5.1); Sodium 148 mmol/L (136-145); Thyroid Stimulating Hormone 1.34 uIU/mL (0.36-3.74); Triglycerides 148 mg/dL (0-150); Vitamin B12 670 pg/mL (193-986)
[2022-11-06 09:06] LABS: Glucose 96 mg/dL (70-99)
== END 2022-11-06 07:39 | disposition home or self-care (01) ==
LOC: CHSLAB 07:40
PROVIDERS: PCP Internal Medicine; Visit Provider Internal Medicine
DX: E11.9 Type 2 diabetes mellitus without complications (principal); D50.9 Iron deficiency anemia, unspecified; E03.4 Atrophy of thyroid (acquired); I10 Essential (primary) hypertension; E78.2 Mixed hyperlipidemia
CPT/HCPCS: 36415; 80053; 80061; 81003; 82043; 82550; 82607; 82728; 83036; 83540; 84439; 84443; 84481; 85025

== ENCOUNTER 2022-11-30 08:56 | Outpatient (CLI) | payer MEDICARE, SELFPAY ==
--- NOTE | 2022-11-30 09:05 | PC.NURSE ---
here for OP infusion, to 201 and oriented to room, call child and warm blanket given
[2022-11-30] MEDS: IRON SUCROSE COMPLEX 300 MG in SODIUM CHLORIDE 0.9% IV 250 ML 125 MG IVPB (09:24)
--- NOTE | 2022-11-30 11:30 | PC.NURSE ---
discharge to home, tolerated well, saline lock removed intact, site clear
== END 2022-11-30 08:57 | disposition home or self-care (01) ==
LOC: CHSTREATRM 08:59
PROVIDERS: PCP Internal Medicine; Visit Provider Internal Medicine
DX: D50.9 Iron deficiency anemia, unspecified (principal)
CPT/HCPCS: 96365; 96366; J1756; J7050

== ENCOUNTER 2022-12-03 13:22 | Outpatient (CLI) | payer MEDICARE, SELFPAY ==
--- NOTE | ~2022-12-03 | XR_ITS ---
EXAM: XR shoulder RT min 2V DATE: 12/03/2022 13:52 HISTORY: RIGHT LATERAL SHOULDER PAIN. NKI. . COMPARISON: 01/26/2020. FINDINGS: Decreased mineralization. No fracture or dislocation. No lytic or blastic lesion. Mild deg enerative change at the glenohumeral joint and moderate degenerative change at the AC joint. Subacrom ial narrowing. No erosion or periosteal change. Soft tissues within normal limits. IMPRESSION: No acute osseous finding in the right shoulder. Mild polyarticular osteoarthritis. Rotato r cuff pathology. Reviewed, dictated and finalized at location K. IMPRESSION: No acute osseous finding in the right shoulder. Mild polyarticular osteoarthritis. Rotator cuff pathology.
== END 2022-12-03 13:23 | disposition home or self-care (01) ==
LOC: CHSIMG 13:24
PROVIDERS: PCP Internal Medicine; Visit Provider Internal Medicine
DX: M25.511 Pain in right shoulder (principal); M19.011 Primary osteoarthritis, right shoulder
CPT/HCPCS: 73030

== ENCOUNTER 2022-12-13 08:46 | Outpatient (CLI) | payer MEDICARE, SELFPAY ==
--- NOTE | ~2022-12-13 | MR_ITS ---
MRI of the right shoulder Technique: Axial proton-density fat-sat images, coronal proton density fat-sat and T2 fat-sat images, and sagittal T1-weighted and T2 fat-sat images were acquired. Clinical History: Pain Findings: There is severe AC joint degenerative change, though a small subacromial spur present. Serena coclavicular ligaments appear intact. Coracoacromial and coracohumeral ligament are poorly visualized , suspected to be intact. There are complete, full-thickness tears involving the entire supraspinatus and infraspinatus tendons . There is greater retraction of the supraspinatus tendon that and infraspinatus tendon. Fluid-filled gap at the supraspinatus tendon region measures approximately 2.9 x 3.9 cm. Subscapularis tendon is thickened with probable partial thickness tearing, though no complete rupture. Tendon of the long hea d of the biceps is not clearly visualized, presumably ruptured and retracted. There is probable degenerative tearing of the superior labrum. Inferior glenohumeral ligament is intact. There is glenohumeral joint effusion with fluid passing thr ough the rotator cuff defect into the subacromial/subdeltoid bursa and into the subcoracoid bursa. Qu estionable minimal fatty infiltration of the supraspinatus and infraspinatus muscle bellies. Impression: Complete, full-thickness tears involving tendinosis bursitis and synovitis tendons, as detailed above . Associated possible minimal fatty infiltration of these muscle bellies. Partial thickness tearing and thinning of the distal subscapularis tendon. Probable complete tear of the proximal long head biceps tendon with retraction. Degenerative tearing of the superior labrum. Severe AC joint degenerative change. Reviewed, dictated and finalized at [facility]. Impression: Complete, full-thickness tears involving tendinosis bursitis and synovitis tend ons, as detailed above. Associated possible minimal fatty infiltration of these muscle bellies. Partial thickness tearing and thinning of the distal subscapularis tendon. Probable complete tear of the proximal long head biceps tendon with retraction. Degenerative tearing of the superior labrum. Severe AC joint degenerative change.
== END 2022-12-13 08:47 | disposition home or self-care (01) ==
LOC: CHSIMG 08:48
PROVIDERS: PCP Internal Medicine; Visit Provider Internal Medicine
DX: M25.511 Pain in right shoulder (principal); S46.811A Strain of other muscles, fascia and tendons at shoulder and upper arm level, right arm, initial encounter; S43.431A Superior glenoid labrum lesion of right shoulder, initial encounter
CPT/HCPCS: 73221

== ENCOUNTER 2022-12-14 12:09 | Outpatient (CLI) | payer MEDICARE, SELFPAY ==
[2022-12-14 12:14] VITALS: BMI 35.5
[2022-12-14 12:34] VITALS: BP 99/60; PULSE 60; RESP 14; TEMP 36.6; O2SAT 97
[2022-12-14] MEDS: IRON SUCROSE COMPLEX 300 MG in SODIUM CHLORIDE 0.9% IV 250 ML 125 MG IVPB (12:40)
[2022-12-14 14:55] VITALS: BP 113/69
--- NOTE | 2022-12-14 14:57 | PC.NURSE ---
Patient here for #2 of 3 IV Venofer infusions. Reports no issues with #1. Education given. No concerns voiced. IV Venofer administered. SEE MAR. Tolerated well. Will return 12/27/22 at 1300 for #3. Safe exit of hospital per ambulatory per self.
== END 2022-12-14 12:10 | disposition home or self-care (01) ==
PROVIDERS: PCP Internal Medicine; Visit Provider Internal Medicine
DX: D50.9 Iron deficiency anemia, unspecified (principal)
CPT/HCPCS: 96365; 96366; J1756; J7050

== ENCOUNTER 2022-12-27 09:10 | Outpatient (CLI) | payer MEDICARE, SELFPAY ==
[2022-12-27] MEDS: IRON SUCROSE COMPLEX 300 MG in SODIUM CHLORIDE 0.9% IV 250 ML 132.5 MG IVPB (09:20)
[2022-12-27 09:36] VITALS: BMI 35.5
[2022-12-27 09:37] VITALS: BP 135/72; PULSE 64; RESP 14; TEMP 36.4; O2SAT 98
--- NOTE | 2022-12-27 12:38 | PC.NURSE ---
12/27/22 1130 Patient here #3 of 3 IV Venofer infusion. Education given. IV Venofer administered. SEE MAR. Tolerated well. Safe exit of hospital per ambulatory per self.
== END 2022-12-27 09:11 | disposition home or self-care (01) ==
LOC: CHSTREATRM 09:12
PROVIDERS: PCP Internal Medicine; Visit Provider Internal Medicine
DX: D50.9 Iron deficiency anemia, unspecified (principal)
CPT/HCPCS: 96365; 96366; J1756; J7050

== ENCOUNTER 2023-01-10 08:48 | Outpatient (CLI) | payer MEDICARE, SELFPAY ==
[2023-01-10 09:05] LABS: Basophils Absolute Auto 0.05 K/mm3 (0.00-0.10); Basophils Percent Auto 0.8 % (0.0-1.0); Eosinophils Absolute Auto 0.38 K/mm3 (0.02-0.50); Eosinophils Percent Auto 6.3 % (1.0-6.0); Hematocrit 35.6 % (35.0-42.0); Immature Granulocyte Absolute 0.01 K/mm3 (0.00-0.00); Immature Granulocyte Percent A 0.2 % (0.0-0.0); Lymphocytes Absolute Auto 1.52 K/mm3 (1.10-4.50); Lymphocytes Percent Auto 25.2 % (18.0-42.0); Mean Corpuscular HGB Conc 30.9 g/dL (32.0-36.0); Mean Corpuscular Hemoglobin 28.2 pg (27.0-31.0); Mean Corpuscular Volume 91.3 fL (78.0-102.0); Neutrophils Absolute Auto 3.5 K/mm3 (1.7-7.2); Neutrophils Percent Auto 57.5 % (50.0-70.0); Platelet Count Result 242 K/mm3 (150-420); Red Cell Distribution Width 14.7 % (11.6-14.4)
[2023-01-10 09:44] LABS: Ferritin 383 ng/mL (8-252); Iron 44 ug/dL (50-170)
== END 2023-01-10 08:49 | disposition home or self-care (01) ==
LOC: CHSLAB 08:51
PROVIDERS: PCP Internal Medicine; Visit Provider Internal Medicine
DX: D50.9 Iron deficiency anemia, unspecified (principal)
CPT/HCPCS: 36415; 82728; 83540; 85025

== ENCOUNTER 2023-01-31 12:28 | Outpatient (CLI) | payer MEDICARE, SELFPAY ==
[2023-01-31] MEDS: IRON SUCROSE COMPLEX 300 MG in SODIUM CHLORIDE 0.9% IV 250 ML 125 MG IVPB (12:40)
[2023-01-31 12:56] VITALS: BP 135/87; PULSE 72; RESP 14; TEMP 36.6; O2SAT 97
[2023-01-31 12:57] VITALS: BMI 35.5
--- NOTE | 2023-01-31 14:39 | PC.NURSE ---
Patient here for #2 of 3 IV Venofer infusions. Education given. NO concerns voiced. IV Venofer administered. SEE MAR. Tolerated well. Safe exit of hospital per self/ambulatory. Will return 02/15/23 at 1300 for #3.
== END 2023-01-31 12:29 | disposition home or self-care (01) ==
PROVIDERS: PCP Internal Medicine; Visit Provider Internal Medicine
DX: D50.9 Iron deficiency anemia, unspecified (principal)
CPT/HCPCS: 96365; 96366; J1756; J7050

== ENCOUNTER 2023-02-15 12:29 | Outpatient (CLI) | payer MEDICARE, SELFPAY ==
[2023-02-15 12:32] VITALS: BMI 35.6
[2023-02-15] MEDS: IRON SUCROSE COMPLEX 300 MG in SODIUM CHLORIDE 0.9% IV 250 ML 125 MG IVPB (12:45)
[2023-02-15 12:51] VITALS: BP 132/66; PULSE 76; RESP 16; TEMP 36.3; O2SAT 97
--- NOTE | 2023-02-15 14:46 | PC.NURSE ---
Patient here for second round of IV Venofer. Here for #3 of 3. No concerns voiced. Education given. IV Venofer administered. SEE MAR. Tolerated well. Safe exit of hospital per amb/self.
== END 2023-02-15 12:30 | disposition home or self-care (01) ==
LOC: CHSTREATRM 12:31
PROVIDERS: PCP Internal Medicine; Visit Provider Internal Medicine
DX: D50.9 Iron deficiency anemia, unspecified (principal)
CPT/HCPCS: 96365; 96366; J1756; J7050

== ENCOUNTER 2023-03-01 07:52 | Outpatient (CLI) | payer MEDICARE, SELFPAY ==
[2023-03-01 08:09] LABS: Basophils Absolute Auto 0.03 K/mm3 (0.00-0.10); Basophils Percent Auto 0.5 % (0.0-1.0); Eosinophils Absolute Auto 0.22 K/mm3 (0.02-0.50); Eosinophils Percent Auto 3.8 % (1.0-6.0); Hematocrit 39.1 % (35.0-42.0); Hemoglobin 12.4 g/dL (11.7-13.8); Immature Granulocyte Absolute 0.01 K/mm3 (0.00-0.00); Immature Granulocyte Percent A 0.2 % (0.0-0.0); Lymphocytes Absolute Auto 1.32 K/mm3 (1.10-4.50); Lymphocytes Percent Auto 22.8 % (18.0-42.0); Mean Corpuscular HGB Conc 31.7 g/dL (32.0-36.0); Mean Corpuscular Hemoglobin 29.5 pg (27.0-31.0); Mean Corpuscular Volume 93.1 fL (78.0-102.0); Mean Platelet Volume 9.5 fl (9.2-11.8); Monocytes Absolute Auto 0.48 K/mm3 (0.10-0.90); Monocytes Percent Auto 8.3 % (2.0-11.0); Neutrophils Absolute Auto 3.7 K/mm3 (1.7-7.2); Neutrophils Percent Auto 64.4 % (50.0-70.0); Platelet Count Result 266 K/mm3 (150-420); Red Cell Distribution Width 14.8 % (11.6-14.4); White Blood Count 5.8 K/mm3 (4.8-10.8)
[2023-03-01 08:47] LABS: Ferritin 794 ng/mL (8-252); Iron 75 ug/dL (50-170)
== END 2023-03-01 07:53 | disposition home or self-care (01) ==
LOC: CHSLAB 07:53
PROVIDERS: PCP Internal Medicine; Visit Provider Internal Medicine
DX: D50.9 Iron deficiency anemia, unspecified (principal)
CPT/HCPCS: 36415; 82728; 83540; 85025

== ENCOUNTER 2023-05-27 08:11 | Outpatient (CLI) | payer MEDICARE, SELFPAY ==
[2023-05-27 08:28] LABS: Basophils Absolute Auto 0.06 K/mm3 (0.00-0.10); Basophils Percent Auto 0.7 % (0.0-1.0); Eosinophils Absolute Auto 0.18 K/mm3 (0.02-0.50); Eosinophils Percent Auto 2.1 % (1.0-6.0); Hematocrit 39.5 % (35.0-42.0); Hemoglobin 12.7 g/dL (11.7-13.8); Immature Granulocyte Absolute 0.03 K/mm3 (0.00-0.00); Immature Granulocyte Percent A 0.4 % (0.0-0.0); Lymphocytes Absolute Auto 1.36 K/mm3 (1.10-4.50); Lymphocytes Percent Auto 16.1 % (18.0-42.0); Mean Corpuscular HGB Conc 32.2 g/dL (32.0-36.0); Mean Corpuscular Hemoglobin 30.2 pg (27.0-31.0); Mean Corpuscular Volume 93.8 fL (78.0-102.0); Mean Platelet Volume 9.8 fl (9.2-11.8); Monocytes Absolute Auto 0.55 K/mm3 (0.10-0.90); Monocytes Percent Auto 6.5 % (2.0-11.0); Neutrophils Absolute Auto 6.3 K/mm3 (1.7-7.2); Neutrophils Percent Auto 74.2 % (50.0-70.0); Platelet Count Result 276 K/mm3 (150-420); Red Blood Count 4.21 M/mm3 (4.20-5.40); Red Cell Distribution Width 13.2 % (11.6-14.4); White Blood Count 8.5 K/mm3 (4.8-10.8)
[2023-05-27 08:31] LABS: Appearance Urine Clear (Clear); Bilirubin Urine Negative (Negative); Blood Urine Negative (Negative); Color Urine Light Yellow (Yellow); Glucose Urine UA Negative (Negative); Ketones Urine Negative (Negative); Leukocyte Esterase Ur Negative (Negative); Nitrate Urine Negative (Negative); Protein Urine Negative (Negative); Urobilinogen Urine 0.2 mg/dL (0.2-1.0)
[2023-05-27 08:44] LABS: Add Urine Microscopic? NO
[2023-05-27 08:55] LABS: Hemoglobin A1C 5.6 % (<5.7)
[2023-05-27 09:48] LABS: Alanine Aminotransferase 19 U/L (14-59); Alkaline Phosphatase 80 U/L (46-116); Anion Gap 6 mmol/L (8-16); Aspartate Amino Transferase 19 U/L (15-37); Bilirubin,Total 0.5 mg/dL (0.00-1.00); Blood Urea Nitrogen 14 mg/dL (7-18); Calcium 9.5 mg/dL (8.5-10.1); Carbon Dioxide 33 mmol/L (21-32); Chloride 106 mmol/L (98-108); Cholesterol 231 mg/dL (0-200); Creatine Kinase 128 U/L (26-192); Estimated Glomerular Filt Rate > 60; Ferritin 708 ng/mL (8-252); Free T3 2.66 pg/mL (2.18-3.98); Free T4 Free Thyroxine 1.03 ng/dL (0.76-1.46); Glucose 85 mg/dL (70-99); HDL Direct 59 mg/dL (40-60); Iron 79 ug/dL (50-170); LDL Cholesterol Calculated 144 mg/dL (<130); Osmolality Calculated 299 mOsm/kg (285-295); Potassium 4.3 mmol/L (3.5-5.1); Sodium 145 mmol/L (136-145); Thyroid Stimulating Hormone 0.93 uIU/mL (0.36-3.74); Total Protein 6.8 g/dL (6.4-8.2); Triglycerides 139 mg/dL (0-150); Vitamin B12 386 pg/mL (193-986)
== END 2023-05-27 08:12 | disposition home or self-care (01) ==
LOC: CHSLAB 08:15
PROVIDERS: PCP Internal Medicine; Visit Provider Internal Medicine
DX: D50.9 Iron deficiency anemia, unspecified (principal); E03.4 Atrophy of thyroid (acquired); I10 Essential (primary) hypertension; E78.2 Mixed hyperlipidemia; E53.8 Deficiency of other specified B group vitamins; E11.9 Type 2 diabetes mellitus without complications
CPT/HCPCS: 36415; 80053; 80061; 81003; 82550; 82607; 82728; 83036; 83540; 84439; 84443; 84481; 85025

== ENCOUNTER 2023-09-20 14:43 | Outpatient (CLI) | payer MEDICARE, SELFPAY ==
[2023-09-20 15:03] LABS: Basophils Absolute Auto 0.04 K/mm3 (0.00-0.10); Basophils Percent Auto 0.5 % (0.0-1.0); Eosinophils Absolute Auto 0.12 K/mm3 (0.02-0.50); Eosinophils Percent Auto 1.6 % (1.0-6.0); Hemoglobin 12.6 g/dL (11.7-13.8); Immature Granulocyte Absolute 0.02 K/mm3 (0.00-0.00); Immature Granulocyte Percent A 0.3 % (0.0-0.0); Immature Platelet Fraction Pct 9.3 % (1.0-7.0); Lymphocytes Percent Auto 25.1 % (18.0-42.0); Mean Corpuscular HGB Conc 31.5 g/dL (32.0-36.0); Mean Corpuscular Hemoglobin 28.6 pg (27.0-31.0); Mean Corpuscular Volume 90.9 fL (78.0-102.0); Mean Platelet Volume 10.7 fl (9.2-11.8); Monocytes Absolute Auto 0.56 K/mm3 (0.10-0.90); Monocytes Percent Auto 7.4 % (2.0-11.0); Neutrophils Absolute Auto 4.9 K/mm3 (1.7-7.2); Neutrophils Percent Auto 65.1 % (50.0-70.0); Red Cell Distribution Width 13.3 % (11.6-14.4); White Blood Count 7.6 K/mm3 (4.8-10.8)
[2023-09-20 15:07] LABS: Appearance Urine Clear (Clear); Bilirubin Urine Negative (Negative); Blood Urine Negative (Negative); Color Urine Light Yellow (Yellow); Glucose Urine UA Negative (Negative); Ketones Urine Negative (Negative); Leukocyte Esterase Ur Trace (Negative); Nitrate Urine Negative (Negative); Protein Urine Negative (Negative); Specific Grav Ur 1.015 (1.010-1.020); Urobilinogen Urine 0.2 mg/dL (0.2-1.0)
[2023-09-20 15:07] LABS: Platelet Count Result 44 K/mm3 (150-420)
[2023-09-20 15:12] LABS: Bacteria Urine Trace /hpf; RBC Urine None seen /hpf (0-2); Squamous Epithelial Cell Urine Few /hpf (Few); WBC Urine 0-3 /hpf (0-3)
[2023-09-20 15:40] LABS: Alanine Aminotransferase 24 U/L (14-59); Albumin Level 4.3 g/dL (3.4-5.0); Alkaline Phosphatase 67 U/L (46-116); Amylase 44 U/L (25-115); Anion Gap 11 mmol/L (8-16); Aspartate Amino Transferase 30 U/L (15-37); Bilirubin,Total 0.7 mg/dL (0.00-1.00); Blood Urea Nitrogen 16 mg/dL (7-18); Calcium 9.1 mg/dL (8.5-10.1); Carbon Dioxide 27 mmol/L (21-32); Chloride 103 mmol/L (98-108); Creatine Kinase 176 U/L (26-192); Estimated Glomerular Filt Rate > 60; Ferritin 711 ng/mL (8-252); Glucose 89 mg/dL (70-99); Iron 41 ug/dL (50-170); Lipase 26 U/L (16-77); Osmolality Calculated 292 mOsm/kg (285-295); Sodium 141 mmol/L (136-145); Total Protein 7.1 g/dL (6.4-8.2)
[2023-09-20 15:41] LABS: CRP < 0.5 mg/dL (0.0-0.9)
[2023-09-20 15:58] LABS: Erythrocyte Sedimentation Rate 7 mm/hr (0-20)
[2023-09-20 16:03] LABS: Add Urine Microscopic? YES
== END 2023-09-20 14:44 | disposition home or self-care (01) ==
LOC: CHSLAB 14:45
PROVIDERS: PCP Internal Medicine; Visit Provider Internal Medicine
DX: R53.82 Chronic fatigue, unspecified (principal); R53.81 Other malaise; M17.0 Bilateral primary osteoarthritis of knee; N18.1 Chronic kidney disease, stage 1; R11.0 Nausea
CPT/HCPCS: 36415; 80053; 81001; 82150; 82550; 82728; 83540; 83690; 85025; 85055; 85652; 86140; 87086

== ENCOUNTER 2023-10-07 09:24 | Outpatient (CLI) | payer MEDICARE, SELFPAY ==
[2023-10-07 09:42] LABS: Basophils Absolute Auto 0.05 K/mm3 (0.00-0.10); Basophils Percent Auto 0.5 % (0.0-1.0); Eosinophils Absolute Auto 0.17 K/mm3 (0.02-0.50); Eosinophils Percent Auto 1.7 % (1.0-6.0); Hematocrit 37.6 % (35.0-42.0); Hemoglobin 11.6 g/dL (11.7-13.8); Immature Granulocyte Absolute 0.04 K/mm3 (0.00-0.00); Immature Granulocyte Percent A 0.4 % (0.0-0.0); Lymphocytes Absolute Auto 1.81 K/mm3 (1.10-4.50); Lymphocytes Percent Auto 17.7 % (18.0-42.0); Mean Corpuscular HGB Conc 30.9 g/dL (32.0-36.0); Mean Corpuscular Hemoglobin 28.3 pg (27.0-31.0); Mean Corpuscular Volume 91.7 fL (78.0-102.0); Mean Platelet Volume 9.4 fl (9.2-11.8); Monocytes Percent Auto 6.9 % (2.0-11.0); Neutrophils Absolute Auto 7.4 K/mm3 (1.7-7.2); Neutrophils Percent Auto 72.8 % (50.0-70.0); Platelet Count Result 284 K/mm3 (150-420); Red Cell Distribution Width 13.6 % (11.6-14.4); White Blood Count 10.2 K/mm3 (4.8-10.8)
[2023-10-07 10:15] VITALS: BP 136/64; PULSE 60; RESP 16; TEMP 36.4; O2SAT 98; BMI 31.9
[2023-10-07] MEDS: IRON SUCROSE COMPLEX 300 MG in SODIUM CHLORIDE 0.9% IV 250 ML 166.67 MG IVPB (10:25)
--- NOTE | 2023-10-07 14:01 | PC.NURSE ---
Patient was here for #1 of 2 IV Venofer infusions. Education given. Patient reports, Didn't have any problems with last three of these last October. IV Venofer administered. SEE MAR. Tolerated well. Will return 09/22/23 at 1000 for #2. Safe exit of hospital per self/ambulatory.
== END 2023-10-07 12:15 | disposition home or self-care (01) ==
PROVIDERS: PCP Internal Medicine; Visit Provider Internal Medicine
DX: D50.9 Iron deficiency anemia, unspecified (principal)
CPT/HCPCS: 36415; 85025; 96365; 96366; J1756

== ENCOUNTER 2023-10-21 09:45 | Outpatient (CLI) | payer MEDICARE, SELFPAY ==
[2023-10-21] MEDS: IRON SUCROSE COMPLEX 300 MG in SODIUM CHLORIDE 0.9% IV 250 ML 125 MG IVPB (10:15)
[2023-10-21 10:26] VITALS: BP 115/67; PULSE 64; RESP 16; TEMP 36.4; O2SAT 98
--- NOTE | 2023-10-21 12:20 | PC.NURSE ---
Patient here for #2 of 2 IV Venofer infusions. No concern voiced. Reports did well with one 2 weeks ago. Education given. IV Venofer administered. SEE MAR. tolerated well. Safe exit of hospital per self/ambulatory.
== END 2023-10-21 12:25 | disposition home or self-care (01) ==
LOC: CHSTREATRM 09:47
PROVIDERS: PCP Internal Medicine; Visit Provider Internal Medicine
DX: D50.9 Iron deficiency anemia, unspecified (principal)
CPT/HCPCS: 96365; 96366; J1756; J7050

== ENCOUNTER 2023-10-30 12:52 | Outpatient (CLI) | payer MEDICARE, SELFPAY ==
[2023-10-30 13:06] LABS: Basophils Absolute Auto 0.05 K/mm3 (0.00-0.10); Basophils Percent Auto 0.6 % (0.0-1.0); Eosinophils Absolute Auto 0.18 K/mm3 (0.02-0.50); Eosinophils Percent Auto 2.3 % (1.0-6.0); Hematocrit 37.2 % (35.0-42.0); Hemoglobin 11.7 g/dL (11.7-13.8); Immature Granulocyte Absolute 0.02 K/mm3 (0.00-0.00); Immature Granulocyte Percent A 0.3 % (0.0-0.0); Lymphocytes Absolute Auto 1.73 K/mm3 (1.10-4.50); Lymphocytes Percent Auto 22.4 % (18.0-42.0); Mean Corpuscular HGB Conc 31.5 g/dL (32-36); Mean Corpuscular Hemoglobin 29.6 pg (27.0-31.0); Mean Corpuscular Volume 94.2 fL (78.0-102.0); Mean Platelet Volume 10.7 fl (9.2-11.8); Monocytes Percent Auto 7.8 % (2.0-11.0); Neutrophils Absolute Auto 5.15 K/mm3 (1.70-7.20); Neutrophils Percent Auto 66.6 % (50.0-70.0); Platelet Count Result 152 K/mm3 (150-420); Red Blood Count 3.95 M/mm3 (4.20-5.40); Red Cell Distribution Width 13.7 % (11.6-14.4); White Blood Count 7.7 K/mm3 (4.8-10.8)
[2023-10-30 13:56] LABS: Ferritin 953 ng/mL (8-252); Iron 55 ug/dL (50-170)
== END 2023-10-30 12:53 | disposition home or self-care (01) ==
LOC: CHSLAB 12:56
PROVIDERS: PCP Internal Medicine; Visit Provider Internal Medicine
DX: D50.9 Iron deficiency anemia, unspecified (principal)
CPT/HCPCS: 36415; 82728; 83540; 85025

== ENCOUNTER 2023-12-06 08:20 | Outpatient (CLI) | payer MEDICARE, SELFPAY ==
[2023-12-06 08:52] LABS: Basophils Absolute Auto 0.05 K/mm3 (0.00-0.10); Basophils Percent Auto 0.7 % (0.0-1.0); Eosinophils Absolute Auto 0.25 K/mm3 (0.02-0.50); Eosinophils Percent Auto 3.3 % (1.0-6.0); Hematocrit 39.3 % (35.0-42.0); Hemoglobin 12.3 g/dL (11.7-13.8); Immature Granulocyte Absolute 0.03 K/mm3 (0.00-0.00); Immature Granulocyte Percent A 0.4 % (0.0-0.0); Lymphocytes Percent Auto 17.3 % (18.0-42.0); Mean Corpuscular HGB Conc 31.3 g/dL (32-36); Mean Corpuscular Hemoglobin 29.2 pg (27.0-31.0); Mean Corpuscular Volume 93.3 fL (78.0-102.0); Mean Platelet Volume 9.5 fl (9.2-11.8); Monocytes Absolute Auto 0.55 K/mm3 (0.10-0.90); Monocytes Percent Auto 7.3 % (2.0-11.0); Neutrophils Absolute Auto 5.33 K/mm3 (1.70-7.20); Platelet Count Result 265 K/mm3 (150-420); Red Blood Count 4.21 M/mm3 (4.20-5.40); Red Cell Distribution Width 13.3 % (11.6-14.4); White Blood Count 7.5 K/mm3 (4.8-10.8)
[2023-12-06 08:54] LABS: Appearance Urine Clear (Clear); Bilirubin Urine Negative (Negative); Blood Urine Negative (Negative); Color Urine Light Yellow (Yellow); Glucose Urine UA Negative (Negative); Hemoglobin A1C 5.2 % (<5.7); Ketones Urine Negative (Negative); Leukocyte Esterase Ur Negative (Negative); Nitrate Urine Negative (Negative); Protein Urine Negative (Negative); Specific Grav Ur 1.015 (1.010-1.020); Urobilinogen Urine 0.2 mg/dL (0.2-1.0)
[2023-12-06 09:06] LABS: Add Urine Microscopic? NO
[2023-12-06 09:51] LABS: Alanine Aminotransferase 28 U/L (14-59); Alkaline Phosphatase 77 U/L (46-116); Anion Gap 4 mmol/L (4-12); Aspartate Amino Transferase 30 U/L (15-37); Bilirubin,Total 0.4 mg/dL (0.00-1.00); Blood Urea Nitrogen 16 mg/dL (7-18); Calcium 9.1 mg/dL (8.5-10.1); Carbon Dioxide 35 mmol/L (21-32); Chloride 105 mmol/L (98-108); Cholesterol 197 mg/dL (0-200); Creatine Kinase 107 U/L (26-192); Estimated Glomerular Filt Rate > 60; Ferritin 926 ng/mL (8-252); Free T3 2.59 pg/mL (2.18-3.98); Glucose 98 mg/dL (70-99); HDL Direct 61 mg/dL (40-60); Iron 67 ug/dL (50-170); LDL Cholesterol Calculated 104 mg/dL (<130); Osmolality Calculated 299 mOsm/kg (285-295); Potassium 4.6 mmol/L (3.5-5.1); Sodium 144 mmol/L (136-145); Thyroid Stimulating Hormone 0.61 uIU/mL (0.36-3.74); Total Protein 6.8 g/dL (6.4-8.2); Triglycerides 158 mg/dL (0-150); Vitamin B12 373 pg/mL (193-986)
[2023-12-06 15:08] LABS: Free T4 Free Thyroxine 1.11 ng/dL (0.76-1.46)
== END 2023-12-06 08:21 | disposition home or self-care (01) ==
LOC: CHSLAB 08:23
PROVIDERS: PCP Internal Medicine; Visit Provider Internal Medicine
DX: E53.8 Deficiency of other specified B group vitamins (principal); I10 Essential (primary) hypertension; E78.2 Mixed hyperlipidemia; E11.9 Type 2 diabetes mellitus without complications; D50.9 Iron deficiency anemia, unspecified
CPT/HCPCS: 36415; 80053; 80061; 81003; 82550; 82607; 82728; 83036; 83540; 84439; 84443; 84481; 85025

== ENCOUNTER 2023-12-18 10:56 | Outpatient (CLI) | payer MEDICARE, SELFPAY ==
--- NOTE | ~2023-12-18 | CT_ITS ---
EXAMINATION: CT brain wo con DATE: 12/18/2023 11:42 INDICATION: Head injury. TECHNIQUE: Computed tomography (CT) of the head was performed without intravenous contrast. The mA wa s adjusted according to patient size. Iterative reconstruction technique was employed. The dose-lengt h product was 681.00 mGy-cm. COMPARISON: PET/CT 06/18/2018 FINDINGS: There are old infarcts in the bilateral basal ganglia. There are scattered areas of low att enuation in the cerebral white matter, which is within normal limits for the patient's age. There is chronic encephalomalacia in left frontal lobe subjacent to a craniotomy site. There is no intracrania l hemorrhage, acute infarction, or abnormal intracranial mass lesion. There is mild ex vacuo dilatati on of anterior body of left lateral ventricle. The orbits are normal. There is mild mucosal thickenin g in the paranasal sinuses. The mastoid air cells are normal. There is an implant in the left frontal scalp. IMPRESSION: 1. Chronic encephalomalacia in left frontal lobe subjacent to a craniotomy site. 2. Old infarcts in the bilateral basal ganglia. Reviewed, dictated and finalized at location A. IMPRESSION: 1. Chronic encephalomalacia in left frontal lobe subjacent to a craniotomy site . 2. Old infarcts in the bilateral basal ganglia.
--- NOTE | ~2023-12-18 | CT_ITS ---
EXAMINATION: CT facial bones wo con DATE: 12/18/2023 11:42 INDICATION: Face injury. TECHNIQUE: Computed tomography (CT) of the facial bones and maxillofacial region was performed withou t intravenous contrast. Automated exposure control and iterative reconstruction technique were employ ed. The dose-length product was 681.00 mGy-cm. COMPARISON: CT sinuses 03/22/2020 FINDINGS: The orbits are normal. There is leftward deviation of the nasal septum. There is left cheek soft tissue swelling. There is mild mucosal thickening in the paranasal sinuses. There is no fractur e. C1 ring is ununited posteriorly, a normal variant. There is severe cervical spondylosis. IMPRESSION: 1. No fracture. Reviewed, dictated and finalized at location A. IMPRESSION: 1. No fracture.
--- NOTE | ~2023-12-18 | XR_ITS ---
EXAMINATION: XR knee LT 3V DATE: 12/18/2023 11:47 INDICATION: Left knee pain. Fall. TECHNIQUE: 3 views of left knee were obtained. COMPARISON: Left knee radiographs 08/31/2014 FINDINGS: Alignment is normal. No fracture. There is moderate osteoarthritis of medial compartment an d mild osteoarthritis of the lateral and patellofemoral compartments. No knee joint effusion. IMPRESSION: 1. Moderate left knee osteoarthritis. Reviewed, dictated and finalized at location A.
== END 2023-12-18 10:57 | disposition home or self-care (01) ==
LOC: CHSIMG 10:59
PROVIDERS: PCP Internal Medicine; Visit Provider Internal Medicine
DX: S09.93XA Unspecified injury of face, initial encounter (principal); M25.562 Pain in left knee; M17.12 Unilateral primary osteoarthritis, left knee; Z86.73 Personal history of transient ischemic attack (TIA), and cerebral infarction without residual deficits; G93.89 Other specified disorders of brain
CPT/HCPCS: 70450; 70486; 73562

== ENCOUNTER 2024-03-19 14:12 | Outpatient (CLI) | payer MEDICARE, SELFPAY ==
--- NOTE | ~2024-03-19 | XR_ITS ---
Right ankle Technique: AP, oblique, and lateral views were obtained. Clinical History: Pain Findings: No acute fracture or dislocation is seen. Osseous alignment is anatomic. Ankle mortise and other visualized joint spaces are preserved. Plantar calcaneal spur present. Soft tissues are otherwi se unremarkable. Impression: Plantar calcaneal spur, otherwise unremarkable exam. Reviewed, dictated and finalized at location . Impression: Plantar calcaneal spur, otherwise unremarkable exam.
--- NOTE | ~2024-03-19 | XR_ITS ---
Right foot Technique: AP, oblique, and lateral views were obtained. Clinical History: Pain Findings: No acute fracture or dislocation is seen. There is hallux valgus. There is mild degenerativ e change of the tarsometatarsal articulations. Plantar calcaneal spur present. Soft tissues are unrem arkable. Impression: Hallux valgus. Mild degenerative change of the tarsometatarsal articulations. Reviewed, dictated and finalized at location M. Impression: Hallux valgus. Mild degenerative change of the tarsometatarsal articulations.
[2024-03-19 14:30] LABS: Hematocrit 36.7 % (35.0-42.0); Mean Corpuscular HGB Conc 32.7 g/dL (32-36); Mean Corpuscular Hemoglobin 29.9 pg (27.0-31.0); Mean Corpuscular Volume 91.3 fL (78.0-102.0); Mean Platelet Volume 9.4 fl (9.2-11.8); Platelet Count Result 279 K/mm3 (150-420); Red Blood Count 4.02 M/mm3 (4.20-5.40); Red Cell Distribution Width 13.3 % (11.6-14.4); White Blood Count 8.3 K/mm3 (4.8-10.8)
[2024-03-19 15:11] LABS: Ferritin 773 ng/mL (8-252); Iron 44 ug/dL (50-170)
== END 2024-03-19 14:13 | disposition home or self-care (01) ==
LOC: CHSLAB 14:15
PROVIDERS: PCP Internal Medicine; Visit Provider Internal Medicine
DX: D64.9 Anemia, unspecified (principal); S99.911A Unspecified injury of right ankle, initial encounter; M77.31 Calcaneal spur, right foot; M20.11 Hallux valgus (acquired), right foot
CPT/HCPCS: 36415; 73610; 73630; 82728; 83540; 85027

== ENCOUNTER 2024-04-03 08:34 | Outpatient (CLI) | payer MEDICARE, SELFPAY ==
[2024-04-03] MEDS: IRON SUCROSE COMPLEX 300 MG in SODIUM CHLORIDE 0.9% IV 250 ML 125 MG IVPB (09:30)
[2024-04-03 09:43] VITALS: BP 127/56; PULSE 59; RESP 16; TEMP 35.6; O2SAT 98; BMI 32.1
[2024-04-03 11:50] VITALS: BP 125/85; PULSE 72; RESP 14; O2SAT 99
--- NOTE | 2024-04-03 12:57 | PC.NURSE ---
1200 Patient here for Venofer infusion. Education given. Venofer administered. SEE MAR. Tolerated well. See Patient care notes.
== END 2024-04-03 08:35 | disposition home or self-care (01) ==
PROVIDERS: PCP Internal Medicine; Visit Provider Internal Medicine
DX: D50.9 Iron deficiency anemia, unspecified (principal)
CPT/HCPCS: 96365; 96366; J1756; J7050

== ENCOUNTER 2024-04-20 10:16 | Outpatient (CLI) | payer MEDICARE, SELFPAY ==
[2024-04-20 10:29] LABS: Basophils Absolute Auto 0.04 K/mm3 (0.00-0.10); Basophils Percent Auto 0.5 % (0.0-1.0); Eosinophils Absolute Auto 0.26 K/mm3 (0.02-0.50); Eosinophils Percent Auto 3.2 % (1.0-6.0); Hematocrit 37.7 % (35.0-42.0); Immature Granulocyte Absolute 0.02 K/mm3 (0.00-0.00); Immature Granulocyte Percent A 0.2 % (0.0-0.0); Lymphocytes Absolute Auto 1.48 K/mm3 (1.10-4.50); Lymphocytes Percent Auto 18.2 % (18.0-42.0); Mean Corpuscular HGB Conc 31.8 g/dL (32-36); Mean Corpuscular Hemoglobin 29.1 pg (27.0-31.0); Mean Corpuscular Volume 91.5 fL (78.0-102.0); Mean Platelet Volume 9.3 fl (9.2-11.8); Monocytes Absolute Auto 0.64 K/mm3 (0.10-0.90); Monocytes Percent Auto 7.9 % (2.0-11.0); Neutrophils Absolute Auto 5.67 K/mm3 (1.70-7.20); Platelet Count Result 297 K/mm3 (150-420); Red Blood Count 4.12 M/mm3 (4.20-5.40); Red Cell Distribution Width 13.8 % (11.6-14.4); White Blood Count 8.1 K/mm3 (4.8-10.8)
[2024-04-20 18:10] LABS: Iron 53 ug/dL (50-170)
[2024-04-20 18:16] LABS: Ferritin > 1000 ng/mL (8-252)
== END 2024-04-20 10:17 | disposition home or self-care (01) ==
PROVIDERS: PCP Internal Medicine; Visit Provider Internal Medicine
DX: D50.9 Iron deficiency anemia, unspecified (principal)
CPT/HCPCS: 36415; 82728; 83540; 85025

== ENCOUNTER 2024-04-28 12:07 | Outpatient (CLI) | payer MEDICARE, SELFPAY ==
--- NOTE | ~2024-04-28 | XR_ITS ---
XR shoulder RT min 2V Ordering provider: Rossy Ray MD History: . RT shoulder pain, LROM, bruising, NKI, palpable lump on top . Comparison: None. FINDINGS: BONES: No acute fracture or dislocation. Degenerative changes seen in the greater tuberosity of the h umerus. JOINT SPACES: The acromioclavicular joint shows osteoarthritic changes.. The glenohumeral joint is no rmal. SOFT TISSUES: Normal. IMPRESSION: No acute osseous abnormality right shoulder. Reviewed, dictated and finalized at location A.
== END 2024-04-28 12:08 | disposition home or self-care (01) ==
PROVIDERS: PCP Internal Medicine; Visit Provider Internal Medicine
DX: M25.511 Pain in right shoulder (principal)
CPT/HCPCS: 73030

== ENCOUNTER 2024-06-03 12:12 | Outpatient (CLI) | payer MEDICARE, SELFPAY ==
[2024-06-03 12:32] VITALS: BMI 31.8
[2024-06-03 12:38] VITALS: BP 122/77; PULSE 64; RESP 14; TEMP 36.6; O2SAT 97
[2024-06-03] MEDS: IRON SUCROSE COMPLEX 200 MG, IRON SUCROSE COMPLEX 100 MG in SODIUM CHLORIDE 0.9% IV 250 ML 125 MG IVPB (12:45)
[2024-06-03 14:53] VITALS: BP 128/76; PULSE 72; RESP 16; TEMP 36.4; O2SAT 97
--- NOTE | 2024-06-03 14:55 | PC.NURSE ---
Patient here for IV Venofer infusion. Education given. No concerns voiced. Patient reports just had this done in Apr. Had no problems with. IV Venofer administered. SEE MAR/patient care notes. Tolerated well.
== END 2024-06-03 14:57 | disposition home or self-care (01) ==
PROVIDERS: PCP Internal Medicine; Visit Provider Internal Medicine
DX: D50.9 Iron deficiency anemia, unspecified (principal)
CPT/HCPCS: 96365; 96366; J1756; J7050

== ENCOUNTER 2024-09-08 08:14 | Outpatient (CLI) | payer MEDICARE, SELFPAY ==
[2024-09-08 08:37] LABS: Add Urine Microscopic? NO; Appearance Urine Clear (Clear); Basophils Absolute Auto 0.04 K/mm3 (0.00-0.10); Basophils Percent Auto 0.5 % (0.0-1.0); Bilirubin Urine Negative (Negative); Blood Urine Negative (Negative); Color Urine Light Yellow (Yellow); Eosinophils Absolute Auto 0.25 K/mm3 (0.02-0.50); Eosinophils Percent Auto 2.8 % (1.0-6.0); Glucose Urine UA Negative (Negative); Hematocrit 38.2 % (35.0-42.0); Hemoglobin 11.9 g/dL (11.7-13.8); Immature Granulocyte Absolute 0.03 K/mm3 (0.00-0.00); Immature Granulocyte Percent A 0.3 % (0.0-0.0); Ketones Urine Negative (Negative); Leukocyte Esterase Ur Negative LEU/UL (Negative); Lymphocytes Percent Auto 14.7 % (18.0-42.0); Mean Corpuscular HGB Conc 31.2 g/dL (32-36); Mean Corpuscular Hemoglobin 28.9 pg (27.0-31.0); Mean Corpuscular Volume 92.7 fL (78.0-102.0); Mean Platelet Volume 9.7 fl (9.2-11.8); Monocytes Absolute Auto 0.61 K/mm3 (0.10-0.90); Monocytes Percent Auto 6.9 % (2.0-11.0); Neutrophils Absolute Auto 6.59 K/mm3 (1.70-7.20); Neutrophils Percent Auto 74.8 % (50.0-70.0); Nitrate Urine Negative (Negative); Platelet Count Result 289 K/mm3 (150-420); Protein Urine Negative (Negative); Red Blood Count 4.12 M/mm3 (4.20-5.40); Red Cell Distribution Width 13.7 % (11.6-14.4); Urobilinogen Urine 0.2 mg/dL (0.2-1.0); White Blood Count 8.8 K/mm3 (4.8-10.8); pH Urine 5.5 (5.0-8.0)
[2024-09-08 08:51] LABS: Hemoglobin A1C 5.2 % (<5.7)
[2024-09-08 09:57] LABS: Alanine Aminotransferase 25 U/L (14-59); Albumin Level 4.2 g/dL (3.4-5.0); Alkaline Phosphatase 75 U/L (46-116); Anion Gap 6 mmol/L (4-12); Aspartate Amino Transferase 19 U/L (15-37); Bilirubin,Total 0.5 mg/dL (0.00-1.00); Blood Urea Nitrogen 26 mg/dL (7-18); Calcium 9.2 mg/dL (8.5-10.1); Carbon Dioxide 34 mmol/L (21-32); Chloride 104 mmol/L (98-108); Cholesterol 215 mg/dL (0-200); Creatine Kinase 88 U/L (26-192); Estimated Glomerular Filt Rate > 60; Ferritin 905 ng/mL (8-252); Free T3 2.69 pg/mL (2.18-3.98); Free T4 Free Thyroxine 1.12 ng/dL (0.76-1.46); Glucose 93 mg/dL (70-99); HDL Direct 59 mg/dL (40-60); Iron 63 ug/dL (50-170); LDL Cholesterol Calculated 129 mg/dL (<130); Osmolality Calculated 302 mOsm/kg (285-295); Potassium 4.5 mmol/L (3.5-5.1); Sodium 144 mmol/L (136-145); Thyroid Stimulating Hormone 0.82 uIU/mL (0.36-3.74); Triglycerides 134 mg/dL (0-150); Vitamin B12 788 pg/mL (193-986)
== END 2024-09-08 08:15 | disposition home or self-care (01) ==
LOC: CHSLAB 08:16
PROVIDERS: PCP Internal Medicine; Visit Provider Internal Medicine
DX: E03.9 Hypothyroidism, unspecified (principal); E78.2 Mixed hyperlipidemia; N39.0 Urinary tract infection, site not specified; E11.9 Type 2 diabetes mellitus without complications; D50.9 Iron deficiency anemia, unspecified
CPT/HCPCS: 36415; 80053; 80061; 81003; 82550; 82607; 82728; 83036; 83540; 84439; 84443; 84481; 85025

== ENCOUNTER 2024-10-19 10:02 | Outpatient (CLI) | payer MEDICARE, SELFPAY ==
--- NOTE | ~2024-10-19 | CT_ITS ---
EXAMINATION: CT abdomen pelvis w con DATE: 10/19/2024 12:27 INDICATION: Nausea. Diarrhea. Low abdominal pain. Pelvic pain. TECHNIQUE: Computed tomography (CT) of the abdomen and pelvis was performed with 100 mL Omnipaque 350 intravenous contrast. Automated exposure control and iterative reconstruction technique were employe d. The dose-length product was 804.03 mGy-cm. COMPARISON: CT abdomen and pelvis 06/06/2018 FINDINGS: The visualized portions of lung bases demonstrate mild atelectasis. No pleural effusion. Ca rdiomegaly is noted. There are coronary artery calcifications. There are calcifications aortic valve. No pericardial effusion. There is an 8 mm hyperenhancing mass in the liver without change, likely a hemangioma or focal nodular hyperplasia. There are changes of cholecystectomy. There is a 16 mm cysti c lesion of the head of the pancreas, likely benign. The spleen, adrenal glands, and left kidney are normal. There is a 4 mm stone in right kidney. There are no dilated loops of bowel. There is divertic ulosis of the colon without evidence of diverticulitis. The appendix is not visualized. There are no pathologically enlarged lymph nodes. There is no free intraperitoneal fluid. There is severe thoracic and lumbar spondylosis. IMPRESSION: 1. No specific etiology for the patient's symptoms. Reviewed, dictated and finalized at location B.
[2024-10-19 10:22] LABS: Basophils Absolute Auto 0.03 K/mm3 (0.00-0.10); Basophils Percent Auto 0.4 % (0.0-1.0); Eosinophils Absolute Auto 0.15 K/mm3 (0.02-0.50); Eosinophils Percent Auto 1.8 % (1.0-6.0); Hematocrit 36.6 % (35.0-42.0); Hemoglobin 11.5 g/dL (11.7-13.8); Immature Granulocyte Absolute 0.04 K/mm3 (0.00-0.00); Immature Granulocyte Percent A 0.5 % (0.0-0.0); Lymphocytes Percent Auto 15.6 % (18.0-42.0); Mean Corpuscular HGB Conc 31.4 g/dL (32-36); Mean Corpuscular Volume 92.2 fL (78.0-102.0); Mean Platelet Volume 9.3 fl (9.2-11.8); Monocytes Absolute Auto 0.49 K/mm3 (0.10-0.90); Monocytes Percent Auto 5.9 % (2.0-11.0); Neutrophils Absolute Auto 6.31 K/mm3 (1.70-7.20); Neutrophils Percent Auto 75.8 % (50.0-70.0); Platelet Count Result 259 K/mm3 (150-420); Red Blood Count 3.97 M/mm3 (4.20-5.40); Red Cell Distribution Width 12.8 % (11.6-14.4); White Blood Count 8.3 K/mm3 (4.8-10.8)
[2024-10-19 11:00] LABS: Influenza A QL RT-PCR Positive (Negative); Influenza B QL RT-PCR Negative (Negative); RSV RNA, RT-PCR Negative (Negative); SARS-CoV-2 RNA PCR Negative (Negative)
[2024-10-19 11:23] LABS: Alanine Aminotransferase 22 U/L (14-59); Alkaline Phosphatase 79 U/L (46-116); Amylase 43 U/L (25-115); Anion Gap 8 mmol/L (4-12); Aspartate Amino Transferase 17 U/L (15-37); Bilirubin,Total 0.6 mg/dL (0.00-1.00); Blood Urea Nitrogen 13 mg/dL (7-18); Calcium 9.3 mg/dL (8.5-10.1); Carbon Dioxide 31 mmol/L (21-32); Chloride 105 mmol/L (98-108); Estimated Glomerular Filt Rate 56; Glucose 107 mg/dL (70-99); Lipase 27 U/L (16-77); Osmolality Calculated 298 mOsm/kg (285-295); Sodium 144 mmol/L (136-145); Total Protein 7.4 g/dL (6.4-8.2)
--- OUTSIDE RECORDS SUMMARY | 2024-10-19 11:46 | XMS_ITS | Encounter Summary ---
Author Organization [facility] Address [address] [facility] [place] [address] Care Team Providers Care Dull Coat Mill Operator Name Role Phone Unavailable Primary Care Provider Unavailabl e Encounter Details Date Type Department Care Team (Late st Contact Info) Description 03/21/2022 Lab Requisition [facility] Derm[facility] Lab [address] [place] [phone] Terrance Vyas MD [address] [place], [place] [id number] Social History Tobacco Use Types Packs/Day Years Used Date Smoking Tobacco: Never Assessed Sex and Gender Information Value Date Recorded Sex Assigned at Not on file Gender Identity Not on file Sexual Orientation Not on file documented as of this encounter Plan of Treatment Not on file documented as of this encounter Procedures Procedure Name Priority Date/Time Associated Diagnosis Comments DERMATOPATHOLOGY Routine 03/20/2022 3:33 AM CDT documented in this encounter Results * DERMATOPATHOLOGY (03/20/2022 3:33 AM CDT) Case Report Dermatopathology Report Case: [id number] Authorizing Provider: Terrance Vyas MD Collected: 03/20/2022 03:33 AM Ordering Location: [facility] Received: 03/21/2022 11:09 AM Pathologist: Belén Perez MD Specimen: Skin, left side nose 3:59 PM CDT DERMATOPATHOLOGY LABORATORY Final Diagnosis Specimen A. SKIN, left side nose: BASAL CELL CARCINOMA, NODULAR TYPE; SUPERFICIAL PORTIONS OF (C44.311) ACTINIC KERATOSIS (L57.0) (see microscopic description) 2 3:59 PM CDT DERMATOPATHOLOGY LABORATORY Clinical History R/O SCC, BCC, HAK 2 3:59 PM CDT DERMATOPATHOLOGY LABORATORY Gross Description Specimen A: Received is one formalin filled container labeled with the patient's name and designated left side nose. The specimen consists of a shave biopsy measuring [id number]. Jar 0. 2 3:59 PM CDT DERMATOPATHOLOGY LABORATORY Microscopic Description Specimen A. SKIN, left side nose: Within the dermis there are superficial portions of aggregates of basaloid cells with a high nuclear to cytoplasmic ratio and peripheral palisading. In addition, the adjacent lower half of the epidermis shows disorderly maturation of keratinocytes with nuclear pleomorphism. 2 3:59 PM CDT DERMATOPATHOLOGY LABORATORY Disclaimer An external and internal positive and negative controls are appropriate for the histochemical, immunohistochemical and immunofluorescence stain(s) in this case (if any), except where stated explicitly. The performance characteristics of the stain(s) cited in this report were developed and its performance characteristic determined by the Dermatopathology Laboratory at [facility], directed by Dr. Rene Vaughan. These tests need not be, and therefore are not, approved by the [place] Food and Drug Administration. The tests are used for clinical purposes. Billing Codes Specimen Charges Stain Charges 14133 1 2 3:59 PM CDT DERMATOPATHOLOGY LABORATORY Embedded Images 2 3:59 PM CDT DERMATOPATHOLOGY LABORATORY Pathology/Cytolo gy TISSUE SPECIMEN FROM SKIN / Unknown 03/20/2022 3:33 AM CDT 03/21/2022 11:09 AM CDT Terrance Vyas MD LAB - PATHOLOGY/CYTO LOGY ORDERABLES DERMATOPATHOLOGY LABORATORY [facility] - Department of Dermatology [address], [address] Floor [address] [phone] documented in this encounter Visit Diagnoses Not on filedocumented in this encounter
--- OUTSIDE RECORDS SUMMARY | 2024-10-19 11:46 | XMS_ITS | Encounter Summary ---
Author Organization [facility] Address [address] [place] [address] Care Team Providers Care Sample Book Maker Name Role Phone Unavailable Primary Care Provider Unavailabl e Encounter Details Date Type Department Care Team (Late st Contact Info) Description 10/04/2021 Lab Requisition [facility] DermPath Lab [address] [place] [phone] Terrance Vyas MD [address] [place], [place] [id number] Social History Tobacco Use Types Packs/Day Years Used Date Smoking Tobacco: Never Assessed Sex and Gender Information Value Date Recorded Sex Assigned at Not on file Gender Identity Not on file Sexual Orientation Not on file documented as of this encounter Plan of Treatment Not on file documented as of this encounter Procedures Procedure Name Priority Date/Time Associated Diagnosis Comments DERMATOPATHOLOGY Routine 10/03/2021 12:0 0 AM DIESEL MAINTENANCE ELECTRICIAN documented in this encounter Results * DERMATOPATHOLOGY (10/03/2021 12:00 AM DIESEL MAINTENANCE ELECTRICIAN) Case Report Dermatopathology Report Case: [id number] Authorizing Provider: Terrance Vyas MD Collected: 10/03/2021 12:00 AM Ordering Location: [facility] DermPath Lab Received: 10/04/2021 02:25 PM Pathologist: Den Vaughan MD Specimens: A) - Skin, left central cheek B) - Skin, left proximal ext forearm 2 4:20 PM DIESEL MAINTENANCE ELECTRICIAN DERMATOPATHOLOGY LABORATORY Addendum 1 Specimen B: The lesion is not present at the sampled margin of the specimen. 2 4:20 PM DIESEL MAINTENANCE ELECTRICIAN DERMATOPATHOLOGY LABORATORY Addendum electronically signed by Den Vaughan MD on 10/09/2021 at 4:20 PM Final Diagnosis Specimen A. SKIN, left central cheek: BASAL CELL CARCINOMA, INFILTRATIVE PATTERN (C44.319) Specimen B. 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 B: R/O BCC. 2 4:20 PM [facility] DER[facility]ORY Gross Description Specimen A: Received is one formalin filled container labeled with the patient's name and designated left central cheek. The specimen consists of a shave biopsy measuring [id number]. Jar 0. Specimen B: Received is one formalin filled container labeled with the patients name and designated left proximal ext forearm. The specimen consists of a shave removal measuring [id number]. Jar 0. 2 4:20 PM [facility] D[facility] Microscopic Description Specimen A. SKIN, left central cheek: Within the dermis there are nodular aggregates of basaloid cells associated with fibromyxoid stroma and epithelial-stromal clefts. At the advancing margin of the neoplasm, there are smaller angulated nests that infiltrate the dermis. Specimen B. SKIN, left proximal ext forearm: The epidermis shows parakeratosis, full thickness disorderly maturation of keratinocytes, mitoses at different levels, and dyskeratotic cells. 2 4:20 PM [facility] DER[facility]ATORY Disclaimer An external and internal positive and negative controls are appropriate for the histochemical, immunohistochemical and immunofluorescence stain(s) in this case (if any), except where stated explicitly. The performance characteristics of the stain(s) cited in this report were developed and its performance characteristic determined by the Dermatopathology Laboratory at [facility], directed by Dr. Rene Vaughan. These tests need not be, and therefore are not, approved by the [place] Food and Drug Administration. The tests are used for clinical purposes. Billing Codes Specimen Charges Stain Charges 64080 40312 1 1 2 4:20 PM [facility] DER[facility] LAB[facility]ATORY Embedded Images 2 4:20 PM [facility] DER[facility]ORY Pathology/Cytology TISSUE SPECIMEN FROM SKIN / Unknown 10/03/2021 10/04/2021 2:25 PM DIESEL MAINTENANCE ELECTRICIAN Miscellaneous samples (specimen) TISSUE SPECIMEN FROM SKIN / Unknown 10/03/2021 10/04/2021 2:25 PM DIESEL MAINTENANCE ELECTRICIAN Terrance Vyas MD LAB - PATHOLOGY/CYTO LOGY ORDERABLES DERMATOPATHOLOGY LABORATORY [facility] - Department of Dermatology [facility] Specialized Medicine [address] [place] [address], [address] [phone] documented in this encounter Visit Diagnoses Not on filedocumented in this encounter
--- OUTSIDE RECORDS SUMMARY | 2024-10-19 11:47 | XMS_ITS ---
Author Organization [facility] Address [address] [place], [place] [phone] Care Team Providers Care Museum Exhibit Designer Name Role Phone Missy Ray Primary Care Provider MICHELLE Reveles Unavailable [phone] Allergies No Known Allergies REASON FOR VISIT Patient presents for at-risk foot care . The patient has painful toenails that cause difficulty with ambulation and shoegear. The onset is gradual Medications Medication SIG (Take, Route, Frequency, Duration) Notes Start Date End Date Status Levothyroxine Sodium 88 MCG Oral for 90 Days Active Atorvastatin Calcium 10 MG TAKE 1 TABLET BY MOUTH EVERY DAY Oral for 90 Days Active Omeprazole 20 MG Oral for 90 Days Active Losartan Potassium 50 MG Oral for 90 Days Active Encounters Encounter Location Date Provider Diagnosis [facility] [address] [place], [place] [phone] 08/27/2024 MICHELLE ZAMBRANO Tinea unguium B35.1 ; Pain in right toe(s) M79.674 ; Pain in left toe(s) M79.675 ; Atherosclerosis of [place] arteries of extremities with intermittent claudication, bilateral legs I70.213 and Acquired keratoderma L85.1 Assessments Encounter Date Diagnosis (ICD Code) Assessment Notes Treatment Notes Treatment Clinical Notes Section Notes 08/27/2024 Tinea unguium (ICD-10 - B35.1) FUNGAL TOENAILS: Discussed various treatment options for fungal toenails including debridement, topical antifungals, oral antifungals, toenail avulsion, or toenail matrixectomy. NAIL DEBRIDEMENT: Nails 1-5 Bilateral were debrided extensively with nail nippers and emery board, reducing length and girth to pink healthy tissue with any subungual debris and necrotic tissue removed 08/27/2024 Pain in right toe(s) (ICD-10 - M79.674) 08/27/2024 Pain in left toe(s) (ICD-10 - M79.675) 08/27/2024 Atherosclerosis of [place] arteries of extremities with intermittent claudication, bilateral legs (ICD-10 - I70.213) 08/27/2024 Acquired keratoderma (ICD-10 - L85.1) Plan Of Treatment Treatment Notes Assessment Notes Tinea unguium FUNGAL TOENAILS: Discussed various treatment options for fungal toenails including debridement, topical antifungals, oral antifungals, toenail avulsion, or toenail matrixectomy. NAIL DEBRIDEMENT: Nails 1-5 Bilateral were debrided extensively with nail nippers and emery board, reducing length and girth to pink healthy tissue with any subungual debris and necrotic tissue removed Next Appt Details Follow Up: 10-12 Weeks, Reas on: At Risk Foot care, sooner if problems arise Provider Name:MICHELLE ZAMBRANO, 03:10:00 PM, [address] [place] [address], [phone], Progress Notes * YU GRAVESB:1945 (79 yo F)Acc No.[id number]:08/27/2024 Patient: GRACIA RAPHAEL Provider: Brigid Zambrano DPM :1945 A ge:79 Y S ex:Female Date:08/27/2024 Address: [facility] Pcp:Missy Ray Subjective: * Chief Complaints: * Robles angel presents for at-risk foot care . The patient has painful toenails that cause difficulty with ambulation and shoegear. The onset is gradual * HPI: H PI: General care Robles angel presents to the office for at risk foot care. Patient states that their nails are thickened, elongated and painful. Patient states that it is aggravated by shoe gear. Onset is gradual. Patient denies being diabetic., Patient denies taking blood thinners., Date last seen by Dr. Ray was April 2024., Initials LB. sample. * Medical History: * Surgical History: * Hospitalization/Major Diagno stic Procedure: * Social History: M igrated Social History: M igrated Social History: Alcohol intake : , History of tobacco use : , Smoking Status : Never used tobacco. * Medications: T akingAtorvastatin Calcium 10 MG Tablet TAKE 1 TABLET BY MOUTH EVERY DAY Oral Levothyroxine Sodium 88 MCG Tablet Oral Losartan Potassium 50 MG Tablet Oral Omeprazole 20 MG Capsule Delayed Release Oral Medication List reviewed and reconciled with the patientTaking Atorvastatin Calcium 10 MG Tablet TAKE 1 TABLET BY MOUTH EVERY DAY Oral Taking Levothyroxine Sodium 88 MCG Tablet Oral Taking Losartan Potassium 50 MG Tablet Oral Taking Omeprazole 20 MG Capsule Delayed Release Oral Medication List reviewed and reconciled with the patient * Allergies: N .K.D.A.no[Allergies Verified] Objective: * Vitals: * Examination: C onstitutional: Constitutional T he patient is awake, alert, well developed, well groomed and well nourished. D ermatologic: Skin findings: S kin is thin, atrophic and lacking pedal hair. Nail pathology: N ails 1, 2, 3, 4, and 5 bilateral are elongated, thick, discolored, and dystrophic with subungual debris. They are painful to palpation. ? V ascular: Dorsalis pedis pulse: 1 /4 b ilateral. Posterior tibial pulse: 0 /4 b ilateral. Capillary refill: g reater than 3 seconds. Edema: N o edema, bilateral. N eurologic: Gross sensation G ross sensation is intact to light touch.? M usculoskeletal: Muscle Strength M uscle strength is 5/5 in regards to dorsiflexion, plantarflexion, inversion, and eversion in bilateral lower extremities. ? Assessment: * Assessment: 1. T inea unguium - B35.1 (Primary) 2 . P ain in right toe(s) - M79.674? 3. P ain in left toe(s) - M79.675 4 . A therosclerosis of [place] arteries of extremities with intermittent claudication, bilateral legs - I70.213 5 . A cquired keratoderma - L85.1 Plan: * Treatment: * Procedure Codes: 1 1055 TRIM SKIN LESION, Modifiers: Q8 97048 DEBRIDE NAIL, 6 OR MORE, Modifiers: 59 , Q8 * Follow Up: 1 0-12 Weeks (Reason: At Risk Foot care, sooner if problems arise) * Billing Information: * Visit Code: * Procedure Codes: 19593 TRIM SKIN LESION. Modifiers: Q8 58570 DEBRIDE NAIL, 6 OR MORE. Modifiers: 59, Q8 * RACT CLERK AUTOMOBILE Sign off status: Completed true * Provider: Brigid Zambrano DPM Date: 0 08/27/2024 Generated for Aaliyah shah/Miguelina/Morgan on: 0 10/19/2024 11:47 AM CDT History and Physical Notes * HPI (History of Present Illness) Category Sub-Category Detail Notes Category Not es HPI General care Patient presents to the office for at risk foot care. Patient states that their nails are thickened, elongated and painful. Patient states that it is aggravated by shoe gear. Onset is gradual. Patient denies being diabetic., Patient denies taking blood thinners., Date last seen by Dr. Ray was April 2024., Initials LB sample Examination Category Sub-Category Detail Notes Category Not es Dermatologic Skin findings: Skin is thin, at rophic and lacking pedal hair Nail pathology: Nails 1, 2, 3, 4, an d 5 bilateral are elongated, thick, discolored, and dystrophic with subungual debris. They are painful to palpation Neurologic Gross sensation Gross sensation is intact to light touch Vascular Dorsalis pedis pulse: 1/4 bilateral Edema: No edema, bilateral Capillary refill: greater than 3 secon ds Posterior tibial pulse: 0/4 bilateral Musculoskeletal Muscle Strength Muscle strength is 5/5 in regards to dorsiflexion, plantarflexion, inversion, and eversion in bilateral lower extremities Constitutional Constitutional The patient is a wake, alert, well developed, well groomed and well nourished
--- OUTSIDE RECORDS SUMMARY | 2024-10-19 11:47 | XMS_ITS ---
Author Organization [facility] Address [address] [place], [place] [id number] Care Team Providers Care Commercial Property Manager Name Role Phone Missy Ray Primary Care Provider Unavailabl MICHELLE Russell Unavailable [phone] REASON FOR VISIT *General care Encounters Encounter Location Date Provider Diagnosis [address] [phone] 08/27/2024 MICHELLE ZAMBRANO Plan Of Treatment Next Appt Details Provider Name:MICHELLE ZAMBRANO, 03:10:00 PM, [address] [place] [address], [phone], Progress Notes * YU GRAVESB:1945 (79 yo F)Acc No.[id number]:08/27/2024 Patient: Robles ASHUGRACIA FERRARI Provider: Brigid Zambrano DPM :1945 A ge:79 Y S ex:Female Date:08/27/2024 Address: [address], [facility] Pcp:Missy Ray Subjective: * Chief Complaints: * 1 . *General care. * Medical History: Objective: * Vitals: Assessment: Plan: * Treatment: * Billing Information: * Visit Code: * Procedure Codes: * Electronic signature of MICHELLE ZAMBRANO DPM on 10/19/2024 at 11:47 AM CDT Sign off status: Pending * Provider: Brigid Zambrano DPM Date: 0 08/27/2024 Generated for Aaliyah shah/Miguelina/Morgan on: 0 10/19/2024 11:47 AM CDT
--- OUTSIDE RECORDS SUMMARY | 2024-10-19 11:47 | XMS_ITS | Encounter Summary ---
Author Organization [facility] Address [address] [place] [address] Care Team Providers Care Treasury Associate Name Role Phone Unavailable Primary Care Provider Unavailabl e Encounter Details Date Type Department Care Team (Late st Contact Info) Description 07/23/2018 Lab Requisition [facility] Care Pathology Lab [address] [place] [address] Fernando Jean MD [address] [place] [address] Generalized enlarged lymph nodes Social History Tobacco Use Types Packs/Day Years Used Date Smoking Tobacco: Never Assessed Sex and Gender Information Value Date Recorded Sex Assigned at Not on file Gender Identity Not on file Sexual Orientation Not on file documented as of this encounter Plan of Treatment Not on file documented as of this encounter Procedures Procedure Name Priority Date/Time Associated Diagnosis Comments FLOW CYTOMETRY TISSUE PANEL Routine 07/23/2018 12:37 PM FLORICULTURE TEACHER Generalized enlarged lymph nodes documented in this encounter Results * FLOW CYTOMETRY TISSUE PANEL (07/23/2018 12:37 PM FLORICULTURE TEACHER) Case Report Flow Cytometry Case: [id number] Authorizing Provider: Fernando Jean MD Collected: 07/23/2018 12:37 PM Pathologist: Micheline Pineda MD Received: 07/23/2018 03:19 PM Specimen: Lymph Node 8 7:38 AM [facility] Final Diagnosis Lymph node, left inguinal, flow cytometric immunophenotypic analysis: - Elevated CD4:CD8 ratio (12:1). - See interpretation. 8 7:38 AM [facility] Flow Cytometry Interpretation The left inguinal lymph node specimen has a markedly reduced viability of 35%. Most of the cells are within the lymphocyte gate (78%). Within this region, there is no monotypic B-cell population identified (kappa: lambda ratio = 1:1). There is no co-expression of CD5 or CD10 on the B-cells. The T-cell population shows an elevated CD4:CD8 ratio of 12:1, but otherwise shows no immunophenotypic aberrancy with preservation of dorsey-T-cell antigen expression. A cytospin prepared from the flow cytometry specimen is reviewed for quality assurance supervisor chassis purposes. The left inguinal lymph node shows the presence of an elevated CD4:CD8 ratio. The etiology for this process may be reactive in nature, or this could represent a lymphoproliferative process. Correlation with clinical findings and the concurrent tissue biopsy is required. KR/NW 8 7:38 AM [facility] PATHOLOGY LAB Flow Cytometry Results Differential Result Comment Flow Cell Count /uL 1380 Total Viability % 35.0 Lymphocytes % 78 Dim CD45 Region % 3 Monocytes % 6 Granulocytes % 9 8 7:38 AM [facility] PATHOLOG[facility] LAB Reason for test Generalized enlarged lymph nodes 785.6 8 7:38 AM [facility] PATHOLOGY LAB Client Specimen ID # [id number] 8 7:38 AM [facility] PATHOLOGY LAB Number of markers 16 were performed. A Flow CD3 A Flow CD10 A Flow CD20 A Flow CD23 A Flow CD2 A Flow CD4 A Flow CD1a A Flow CD5 A Flow CD19 A Flow CD34 A Flow CD45 A Flow CD7 A Flow CD8 A Flow CD30 A Violet+CD19+ A Lambda+CD19+ 8 7:38 AM [facility] PATHOLOGY LAB Disclaimer Test performed at [facility], [address] [place] [address], [id number]. *The established laboratory minimum viability is 70%. Values below the minimum may result in the failure to find an abnormal population of cells. This test was developed and its performance characteristics determined by the Flow Cytometry Laboratory. It has not been cleared by the [place] Food and Drug Administration (FDA). The FDA has determined that such clearance or approval is not necessary. This test is used for clinical purposes. It should not be regarded as investigational or for research. This laboratory is regulated under the Clinical Laboratory Improvement Amendments of 1998 (CLIA) as a qualified to perform high complexity clinical testing. 8 7:38 AM FLORICULTURE TEACHER [facility] PATHOLOGY LAB Embedded Images 8 7:38 AM FLORICULTURE TEACHER [facility] PATHOLOGY LAB Pathology/Cytolo gy ENTIRE LYMPH NODE / Unknown 07/23/2018 12:37 PM FLORICULTURE TEACHER 07/23/2018 3:19 PM FLORICULTURE TEACHER Fernando Jean MD LAB - PATHOLOGY/CYTO LOGY ORDERABLES Performing Organization Address City/State/[facility] Co de Phone Number [facility] PATHOLOGY LAB [address] [phone] documented in this encounter Visit Diagnoses Diagnosis Generalized enlarged lymph nodes Enlargement of lymph nodes documented in this encounter
--- OUTSIDE RECORDS SUMMARY | 2024-10-19 11:47 | XMS_ITS ---
Author Organization [facility] Address [address] [place], [place] [id number] Care Team Providers Care Drawing Box Tender Name Role Phone Missy Ray Primary Care Provider ROBERT Jay Unavailable [phone] REASON FOR VISIT *General care Medications Medication SIG (Take, Route, Frequency, Duration) Notes Start Date End Date Status Levothyroxine Sodium 88 MCG Oral for 90 Days Active Losartan Potassium 50 MG Oral for 90 Days Active Atorvastatin Calcium 10 MG TAKE 1 TABLET BY MOUTH EVERY DAY Oral for 90 Days Active Omeprazole 20 MG Oral for 90 Days Active Encounters Encounter Location Date Provider Diagnosis [address] [place], [place] [id number] 06/25/2024 ROBERT DIAS Other hammer toe(s) (acquired), right foot M20.41 ; Tinea unguium B35.1 ; Other hammer toe(s) (acquired), left foot M20.42 ; Pain in right toe(s) M79.674 ; Pain in left toe(s) M79.675 ; 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 The patient was given education about shoe recommendations specific for the condition. The patient was educated about custom orthotics and how appropriate shoes and orthotics can prevent further worsening of the deformity. The patient was educated about how bad shoe habits can worsen the condition. NSAIDS, P.T., injections and other conservative treatments were discussed. Both surgical and non surgical treatments were discussed, but conservative options were emphasized. 06/25/2024 Tinea unguium (ICD-10 - B35.1) Aseptic debridement of elongated thickened nails x 10 using sterile nippers, nails were debrided in length and thickness by 30% utilizing a nail nipper without incident. The patient was educated regarding all treatment options that include topical and oral antifungal treatments. I discussed the options of taking a sample of the nail to confirm diagnosis. Nail clippings were not sent for pathology analysis. The patient was educated why and how the fungal infection evolved in their feet and the patient was given information regarding how to prevent further infection. The patient was told to keep feet dry and change socks. The patient was told to be careful with old shoes and excessive sweating. The patient was educated regarding both OTC and prescription treatments. 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 The patient was told to keep feet dry and change socks. The patient was told to be careful with old shoes and excessive sweating. The patient was educated regarding both OTC and prescription treatments. 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 After removal of overlying extensive hyperkeratosis, healthy tissue was noted and care was taken to assure that no undermining or probing was present. It should be noted that no probing was noted and no infection or drainage was noted. Plan Of Treatment Treatment Notes Assessment Notes Other hammer toe(s) (acquired), right fo ot The patient was educated regarding how to mechanically stabilize their deformity. The patient was given education about shoe recommendations specific for the condition. The patient was educated about custom orthotics and how appropriate shoes and orthotics can prevent further worsening of the deformity. The patient was educated about how bad shoe habits can worsen the condition. NSAIDS, P.T., injections and other conservative treatments were discussed. Both surgical and non surgical treatments were discussed, but conservative options were emphasized. Tinea unguium Aseptic debridement of elongated thickened nails x 10 using sterile nippers, nails were debrided in length and thickness by 30% utilizing a nail nipper without incident. The patient was educated regarding all treatment options that include topical and oral antifungal treatments. I discussed the options of taking a sample of the nail to confirm diagnosis. Nail clippings were not sent for pathology analysis. The patient was educated why and how the fungal infection evolved in their feet and the patient was given information regarding how to prevent further infection. The patient was told to keep feet dry and change socks. The patient was told to be careful with old shoes and excessive sweating. The patient was educated regarding both OTC and prescription treatments. 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 The patient was told to keep feet dry and change socks. The patient was told to be careful with old shoes and excessive sweating. The patient was educated regarding both OTC and prescription treatments. 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 After removal of overlying extensive hyperkeratosis, healthy tissue was noted and care was taken to assure that no undermining or probing was present. It should be noted that no probing was noted and no infection or drainage was noted. Next Appt Details Follow Up: 3 Months, Reason: Provider Name:MICHELLE ZAMBRANO, 03:10:00 PM, [address] [place] [address], [phone], Progress Notes * LU GRAVES:1945 (79 yo F)Acc No.[id number]:06/25/2024 Patient: GRACIA RAPHAEL Provider: Nicci DIAS :1945 A ge:79 Y S ex:Female Date:06/25/2024 Address:[facility] [place], [place], [id number] Pcp:Missy Ray Subjective: * Chief Complaints: * 1 . *General care. * HPI: H PI: General care Robles angel presents to the office for at risk foot care. Patient states that their nails are thickened, elongated and painful. Patient states that it is aggravated by shoe gear. Onset is gradual. Patient denies being diabetic., Patient denies taking blood thinners., Date last seen by Dr. Ray was 12/2023., Initials mca. * ROS: G eneral / Constitutional: Patient denies w eakness. R espiratory: Patient denies c hronic cough, shortness of breath, sputum production. C ardiovascular: Patient denies c hest pain, history of [place], irregular heartbeat. M usculoskeletal: Patient complains of h ammertoes. S kin: Patient complains of f ungal nails, , nail changes. ? N eurologic: Patient denies d izziness, gait abnormality, headache. * Medical History: * Medications: T aking Atorvastatin Calcium 10 MG Tablet TAKE 1 TABLET BY MOUTH EVERY DAY Oral , Taking Levothyroxine Sodium 88 MCG Tablet Oral , Taking Losartan Potassium 50 MG Tablet Oral , Taking Omeprazole 20 MG Capsule Delayed Release Oral Objective: * Vitals: * Examination: P hysical Examination: V ascular: Dorsalis Pedis pulse noted at 1/4 right foot and 1/4 left foot and Posterior Tibial pulse noted at 1/4 right foot and 1/4 left foot, Capillary refill times noted to be less than three seconds x ten, Temperature gradient noted to be warm to cool to bilateral foot, pedal hair present to bilateral foot and no varicosities are noted Dermatologic: there are no open lesions, no signs of active clinical infection, no erythema noted, no ecchymoses, nails are elongated thickened and dystrophic with subungual debris x ten, hyperkeratotic tissue noted to plantar medial hallux bilateral foot Musculoskeletal: there is pain to palpation onto nail plate x ten, no calf pain noted bilaterally, arch height noted at 2/5 non-weight bearing bilaterally, first metatarsophalangeal joint range of motion 30 deg non-weight bearing bilaterally, flexible fifth digit hammer toe deformity noted to bilateral foot reducible with kelikian push up test, pain to palpation hyperkeratotic tissue plantar medial hallux bilateral foot Neurology: protective sensation intact to light touch bilateral digits one through five, vibratory sensation intact to first metatarsophalangeal joint bilaterally. Assessment: * Assessment: 1. T inea unguium - B35.1 (Primary) 2 . O ther hammer toe(s) (acquired), right foot - M20.41 3 . O ther hammer toe(s) (acquired), left foot - M20.42 ? 4 . P ain in right toe(s) - M79.674 5 . P ain in left toe(s) - M79.675 6 . 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 A cquired keratosis [keratoderma] palmaris et plantaris - L85.1 Plan: * Treatment: 2. O ther hammer toe(s) (acquired), right foot Notes: The patient was educated regarding how to mechanically stabilize their deformity. The patient was given education about shoe recommendations specific for the condition. The patient was educated about custom orthotics and how appropriate shoes and orthotics can prevent further worsening of the deformity. The patient was educated about how bad shoe habits can worsen the condition. NSAIDS, P.T., injections and other conservative treatments were discussed. Both surgical and non surgical treatments were discussed, but conservative options were emphasized. 3. U nspecified atherosclerosis of prairie band arteries of extremities, bilateral legs Notes: The patient was educated why and how the fungal infection evolved in their feet and the patient was given information regarding how to prevent further infection. The patient was told to keep feet dry and change socks. The patient was told to be careful with old shoes and excessive sweating. The patient was educated regarding both OTC and prescription treatments. d 4. 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 After removal of overlying extensive hyperkeratosis, healthy tissue was noted and care was taken to assure that no undermining or probing was present. It should be noted that no probing was noted and no infection or drainage was noted. ? * Procedure Codes: 1 1056 TRIM SKIN LESIONS, 2 TO 4, Modifiers: Q8 , 83712 DEBRIDE NAIL, 6 OR MORE, Modifiers: 59 , Q8 * Follow Up: 3 Months * Billing Information: * Visit Code: * Procedure Codes: 63036 TRIM SKIN LESIONS, 2 TO 4. Modifiers: Q8 19133 DEBRIDE NAIL, 6 OR MORE. Modifiers: 59, Q8 * E SUPERVISOR Sign off status: Completed true * Provider: Nicci DIAS Date: 1 08/25/2023 Generated for Aaliyah shah/Miguelina/Moralesitting on: 0 10/19/2024 11:46 AM CDT History and Physical Notes * [...] Date last seen by Dr. Ray was 12/2023., Initials mca Examination Category Sub-Category Detail Notes Category Not es Physical Examination Vascular: Dorsalis Pedis pulse noted at 1/4 right foot and 1/4 left foot and Posterior Tibial pulse noted at 1/4 right foot and 1/4 left foot, Capillary refill times noted to be less than three seconds x ten, Temperature gradient noted to be warm to cool to bilateral foot, pedal hair present to bilateral foot and no varicosities are noted Dermatologic: there are no open lesions, no signs of active clinical infection, no erythema noted, no ecchymoses, nails are elongated thickened and dystrophic with subungual debris x ten, hyperkeratotic tissue noted to plantar medial hallux bilateral foot Musculoskeletal: there is pain to palpation onto nail plate x ten, no calf pain noted bilaterally, arch height noted at 2/5 non-weight bearing bilaterally, first metatarsophalangeal joint range of motion 30 deg non-weight bearing bilaterally, flexible fifth digit hammer toe deformity noted to bilateral foot reducible with kelikian push up test, pain to palpation hyperkeratotic tissue plantar medial hallux bilateral foot Neurology: protective sensation intact to light touch bilateral digits one through five, vibratory sensation intact to first metatarsophalangeal joint bilaterally
--- OUTSIDE RECORDS SUMMARY | 2024-10-19 11:47 | XMS_ITS | Clinical Summary ---
Author Organization [facility] Address [address] [place] [address] Care Team Providers Care Boxing And Pressing Supervisor Name Role Phone Unavailable Primary Care Provider Unavailabl e Source Comments [facility],non-owned Affiliates and Associated Physician Practices is amultiple site organization consisting of ambulatory clinics and hospital sitesin [place], [place], [place] and [place]. This disclosure is being madepursuant to the Care Everywhere program and may not contain all information available regarding this patient. Last updated 18.[facility] [employer] Social History Tobacco Use Types Packs/Day Years Used Date Smoking Tobacco: Never Assessed Sex and Gender Information Value Date Recorded Sex Assigned at Not on file Gender Identity Not on file Sexual Orientation Not on file Plan of Treatment Health Maintenance Due Date Last Done Comments BONE DENSITY TESTING 1945 MEDICARE AWV 12 MONTHS 1945 DTAP/TDAP/TD VACCINES (1 - Tdap) 02/28/1963 PNEUMOCOCCAL VACCINE 50+ (1 of 1 - PCV) 02/28/1994 ZOSTER VACCINE (1 of 2) 02/28/1994 Respiratory Syncytial Virus (RSV) Vaccine Pt: or over 60 yrs (1 - 1-dose 75+ series) 02/28/2019 COVID-19 VACCINE ( - 2023-2 5 season) 2024 INFLUENZA VACCINE (#1) 2024 DEPRESSION SCREENING 08/12/2024 HEPATITIS B VACCINE Aged Out No longe r eligible based on patient's age to complete this topic HIB VACCINE Aged Out No longer eligi ble based on patient's age to complete this topic HPV VACCINE Aged Out No longer eligi ble based on patient's age to complete this topic MENINGOCOCCAL (Group B) VACCINE Aged Out No longer eligible based on patient's age to complete this topic MENINGOCOCCAL VACCINE Aged Out No nayan denise eligible based on patient's age [place] [address] [place] [id number]
--- OUTSIDE RECORDS SUMMARY | 2024-10-19 11:47 | XMS_ITS | Clinical Summary ---
Author Organization [facility] [place] [address] Address [address] [place] [address] Care Team Providers Care Locum Tenens Name Role Phone Rossy Ray MD Primary Care Provider + [phone] Allergies No known active allergies Medications levothyroxine (SYNTHROID) 88 mcg tablet Take 88 mcg by mouth chicken boner before breakfast Active losartan (COZAAR) 50 mg tablet Take 50 mg by mouth daily Active omeprazole (PriLOSEC) 20 mg capsule Take 20 mg by mouth daily Active cetirizine (ZyrTEC) 10 mg tablet Take 10 mg by mouth daily Active acetaminophen (TYLENOL) 500 mg tablet Take 500 mg by mouth every 6 (six) hours as needed for pain Active cholecalciferol (VITAMIN D-3) 2000 unit capsule Take 2,000 Units by mouth daily Active acidophilus-pec tin, citrus 100 million cell-10 mg capsule Take by mouth Activ e atorvastatin (LIPITOR) 10 mg tablet Take 10 mg by mouth daily Active cyanocobalamin (Vitamin B-12) 1,000 mcg tabletIndicatio ns:Prevention of Vitamin B12 Deficiency Take 1,000 mcg by mouth daily Active ipratropium (ATROVENT) 42 mcg (0.06 %) nasal spray Administer 2 sprays into each nostril 2 (two) times a day Active Active Problems Problem Noted Date Diagnosed Date B12 deficiency 05/03/2020 Chronic fatigue 05/03/2020 TOBIAS (dyspnea on exertion) 05/03/2020 Sarcoidosis 05/03/2020 Dyslipidemia 05/03/2020 Atypical chest pain 05/03/2020 Surgical History Surgery Date Site/Laterality Comments KNEE SURGERY Medical History Medical History Date Comments Hypertension Hyperlipidemia Thyroid disease Acid indigestion Diverticulitis Arthritis Family History Medical History Relation Name Comments Stroke Brother Relation Name Status Comments Brother (Age 84) Father (Age 89) Mother (Age 89) Sister Alive Social History Tobacco Use Types Packs/Day Years Used Date Smoking Tobacco: Never Smokeless Tobacco: Never Alcohol Use Standard Drinks/Week Comments Not Currently 0 (1 standard drink = 0.6 oz pur e alcohol) Personal Safety Answer Date Recorded Getting School Help Needed Not on file 10/26 Comments Unknown Sex and Gender Information Value Date Recorded Sex Assigned at Not on file Legal Sex Female 2:54 AM WELFARE SUPERVISOR Gender Identity Not on file Sexual Orientation Not on file Obstetrics History Last Filed Vital Signs Vital Sign Reading Time Taken Comments Blood Pressure 128/70 08/15/2020 2:16 PM WELFARE SUPERVISOR Pulse 74 08/15/2020 2:16 PM WELFARE SUPERVISOR Temperature - - Respiratory Rate - - Oxygen Saturation 97% 08/15/2020 2:16 PM WELFARE SUPERVISOR Inhaled Oxygen Concentration - - Weight 90 kg (198 lb 6.4 oz) 08/15/2020 2:16 PM WELFARE SUPERVISOR Height 160 cm (5' 3 ) 08/15/2020 2:16 PM WELFARE SUPERVISOR Body Mass Index 35.14 08/15/2020 2:16 PM WELFARE SUPERVISOR Plan of Treatment Not on file Insurance MEDICARE [facility] MEDICARE SUPPLEMENT INSURANCE Care Teams Locum Tenens Relationship Specialty Start Date End Date Rossy Ray MD [address] [place], [place] [phone] PCP - General 01/08/13
--- OUTSIDE RECORDS SUMMARY | 2024-10-19 11:47 | XMS_ITS | Patient Health Summary ---
Author Organization [facility] Address [address] [place] [address] Care Team Providers Care Bass Guitar Teacher Name Role Phone Unavailable Primary Care Provider Unavailabl e Note from [facility],non-owned Affiliates and Associated Physician Practices is amultiple site organization consisting of ambulatory clinics and hospital sitesin [place], [place] and [place]. This disclosure is being madepursuant to the Care Everywhere program and may not contain all information available regarding this patient. Last updated 18.[facility] Social History Tobacco Use Types Packs/Day Years Used Date Smoking Tobacco: Never Assessed Sex and Gender Information Value Date Recorded Sex Assigned at Not on file Gender Identity Not on file Sexual Orientation Not on file Procedures * DERMATOPATHOLOGY(Performed 03/20/2022) * DERMATOPATHOLOGY(Performed 10/03/2021) * FLOW CYTOMETRY TISSUE PANEL(Performed 07/23/2018) Performed for Generalized enlarged lymph nodes Results * DERMATOPATHOLOGY (03/20/2022 3:33 AM CDT) Only the most recent of2 resultswithin the time period is included. Case Report Dermatopathology Report Case: [id number] Authorizing Provider: Terrance Vyas MD Collected: 03/20/2022 03:33 AM Ordering Location: [facility] DermPath Lab Received: 03/21/2022 11:09 AM Pathologist: Belén Perez MD Specimen: Skin, left side nose 2 3:59 PM CDT DERMATOPATHOLOGY LABORATORY Final Diagnosis [...] specimen consists of a shave biopsy measuring [id number]. Jar 0. 2 3:59 PM CDT DERMATOPATHOLOGY [...] characteristic determined by the Dermatopathology Laboratory at [facility], directed by Dr. Rene Vaughan. These tests need not be, and therefore are not, approved by the [place] Food and Drug Administration. The tests are used for clinical purposes. Billing Codes Specimen Charges Stain Charges 60957 1 2 3:59 PM CDT DERMATOPATHOLOGY LABORATORY Embedded Images 2 3:59 PM CDT DERMATOPATHOLOGY LABORATORY Pathology/Cytolo gy TISSUE SPECIMEN FROM SKIN / Unknown 03/20/2022 3:33 AM CDT 03/21/2022 11:09 AM CDT Terrance Vyas MD LAB - PATHOLOGY/CYTO LOGY ORDERABLES DERMATOPATHOLOGY LABORATORY [facility] - Department of Dermatology [address], [address] [phone] * FLOW CYTOMETRY TISSUE PANEL (07/23/2018 12:37 PM CEMENT FINISHER APPRENTICE) Case Report Flow Cytometry Case: [id number] Authorizing Provider: Fernando Jean MD Collected: 07/23/2018 12:37 PM Pathologist: Micheline Pineda MD Received: 07/23/2018 03:19 PM Specimen: Lymph Node 8 7:38 AM [facility] PATHOLOGY LAB Final Diagnosis Lymph node, left inguinal, flow cytometric immunophenotypic analysis: - Elevated CD4:CD8 ratio (12:1). - See interpretation. 8 7:38 AM [facility] PATHOLOGY LAB Flow Cytometry Interpretation The left [...] flow cytometry specimen is reviewed for quality improvement coordinator (rn) purposes. The left inguinal lymph node shows the presence of an elevated CD4:CD8 ratio. The etiology for this process may be reactive in nature, or this could represent a lymphoproliferative process. Correlation with clinical findings and the concurrent tissue biopsy is required. KR/NW 8 7:38 AM [facility] PATHOLOGY LAB Flow Cytometry Results Differential Result Comment Flow Cell Count /uL 1380 Total Viability % 35.0 Lymphocytes % 78 Dim CD45 Region % 3 Monocytes % 6 Granulocytes % 9 8 7:38 AM [facility] Reason for test Generalized enlarged lymph nodes 785.6 8 7:38 AM [facility] PATHOLOGY LAB Client Specimen ID # [id number] 8 7:38 AM [facility] PATHOLOGY LAB Number of markers 16 were performed. A Flow CD3 A Flow CD10 A Flow CD20 A Flow CD23 A Flow CD2 A Flow CD4 A Flow CD1a A Flow CD5 A Flow CD19 A Flow CD34 A Flow CD45 A Flow CD7 A Flow CD8 A Flow CD30 A [place]auxite+CD19+ A Lambda+CD19+ 8 7:38 AM [facility] PATHOLOGY LAB Disclaimer Test performed at [facility], [address] [place] [address], [id number]. *The established laboratory minimum viability is 70%. [...] high complexity clinical testing. 8 7:38 AM CEMENT FINISHER APPRENTICE [facility] PATHOLOGY LAB Embedded Images 8 7:38 AM CEMENT FINISHER APPRENTICE [facility] PATHOLOGY LAB Pathology/Cytolo gy ENTIRE LYMPH NODE / Unknown 07/23/2018 12:37 PM CEMENT FINISHER APPRENTICE 07/23/2018 3:19 PM CEMENT FINISHER APPRENTICE Fernando Jean MD LAB - PATHOLOGY/CYTO LOGY ORDERABLES [facility] PATH[facility] [address] [place] [address], [facility] [phone]
--- OUTSIDE RECORDS SUMMARY | 2024-10-19 11:47 | XMS_ITS | Referral Summary ---
Author Organization [facility] [address] Address [address] [place] [address] Care Team Providers Care Home Care Music Therapist Name Role Phone Rossy Ray MD Primary Care Provider + [phone] Allergies No known active allergies Medications levothyroxine (SYNTHROID) 88 mcg tablet Take 88 mcg by mouth texture artist before breakfast Active losartan (COZAAR) 50 mg [...] 05/03/2020 Dyslipidemia 05/03/2020 Atypical chest pain 05/03/2020 Social History Tobacco Use Types Packs/Day Years [...] on file Legal Sex Female 2:54 AM EXTENSION COURSE COUNSELOR Gender Identity Not on file Sexual Orientation Not on file Last Filed Vital Signs Vital Sign Reading Time Taken Comments Blood Pressure 128/70 08/15/2020 2:16 PM EXTENSION COURSE COUNSELOR Pulse 74 08/15/2020 2:16 PM EXTENSION COURSE COUNSELOR Temperature - - Respiratory Rate - - Oxygen Saturation 97% 08/15/2020 2:16 PM EXTENSION COURSE COUNSELOR Inhaled Oxygen Concentration - - Weight 90 kg (198 lb 6.4 oz) 08/15/2020 2:16 PM EXTENSION COURSE COUNSELOR Height 160 cm (5' 3 ) 08/15/2020 2:16 PM EXTENSION COURSE COUNSELOR Body Mass Index 35.14 08/15/2020 2:16 PM EXTENSION COURSE COUNSELOR Plan of Treatment Not on file Insurance MEDICARE [facility] Address: [address] [address] [place] [address] [facility] MEDICARE SUPPLEMENT INSURANCE Care Teams Home Care Music Therapist Relationship Specialty Start Date End Date Rossy Ray MD [address] [place] [address] PCP - General 01/08/13
--- OUTSIDE RECORDS SUMMARY | 2024-10-19 11:47 | XMS_ITS | Referral Summary ---
Author Organization [facility] Address [address] [place] [address] Care Team Providers Care Boring Inspector Name Role Phone Unavailable Primary Care Provider Unavailabl e Source Comments [facility],non-owned Affiliates and Associated Physician Practices is amultiple site organization consisting of ambulatory clinics and hospital sitesin [place], [place], [place] and [place]. This disclosure is being madepursuant to the Care Everywhere program and may not contain all information available regarding this patient. Last updated 18.[facility] Social History Tobacco Use Types Packs/Day Years Used Date Smoking Tobacco: Never Assessed Sex and Gender Information Value Date Recorded Sex Assigned at Not on file Gender Identity Not on file Sexual Orientation Not on file Plan of Treatment Not on file
--- OUTSIDE RECORDS SUMMARY | 2024-10-19 11:47 | XMS_ITS | Patient Health Record ---
Author Organization [facility] Address [address] [place], [place] [id number] Care Team Providers Care Hvac Service Technician Name Role Phone Missy Ray Primary Care Provider MICHELLE Reveles Unavailable [phone] ROBERT DIAS Unavailable [phone] Allergies No Known Allergies Reason For Referral No Information Medications Medication SIG (Take, Route, Frequency, Duration) Notes Start Date End Date Status Levothyroxine Sodium 88 MCG Oral for 90 Days Active Atorvastatin Calcium 10 MG TAKE 1 TABLET BY MOUTH EVERY DAY Oral for 90 Days Active Omeprazole 20 MG Oral for 90 Days Active Losartan Potassium 50 MG Oral for 90 Days Active Immunizations Vaccine Route Administration Date Status Comme nts Influenza, high dose seasonal Unknown 05/24/2023 Admini stered Vital Signs Height-cm 160.02 cm 02/20/2024 Weight-kg 84.37 kg 02/20/2024 Height 63.00 in 02/20/2024 Weight 186 lbs 02/20/2024 BMI 32.94 kg/m2 02/20/2024 Encounters Encounter Location Date Provider Diagnosis [address] [id number] 12/12/2023 ROBERT DIAS Other hammer toe(s) (acquired), right foot M20.41 ; Tinea unguium B35.1 ; Other hammer toe(s) (acquired), left foot M20.42 ; Pain in right toe(s) M79.674 ; Pain in left toe(s) M79.675 ; Pain in right foot M79.671 ; Pain in left foot M79.672 ; Unspecified atherosclerosis of eek arteries of extremities, bilateral legs I70.203 and Acquired keratosis [keratoderma] palmaris et plantaris L85.[address] [id number] 02/20/2024 ROBERT DIAS Other hammer toe(s) (acquired), right foot M20.41 ; Tinea unguium B35.1 ; Other hammer toe(s) (acquired), left foot M20.42 ; Pain in right toe(s) M79.674 ; Pain in left toe(s) M79.675 ; Pain in right foot M79.671 ; Pain in left foot M79.672 ; Unspecified atherosclerosis of eek arteries of extremities, bilateral legs I70.203 and Acquired keratosis [keratoderma] palmaris et plantaris L85.[address] [id number] 04/23/2024 ROBERT DIAS Other hammer toe(s) (acquired), right foot M20.41 ; Tinea unguium B35.1 ; Other hammer toe(s) (acquired), left foot M20.42 ; Pain in right toe(s) M79.674 ; Pain in left toe(s) M79.675 ; Unspecified atherosclerosis of eek arteries of extremities, bilateral legs I70.203 and Acquired keratosis [keratoderma] palmaris et plantaris L85.1 [facility] [address] [place], [place] [id number] 06/25/2024 ROBERT DIAS Other hammer toe(s) (acquired), right foot M20.41 ; Tinea unguium B35.1 ; Other hammer toe(s) (acquired), left foot M20.42 ; Pain in right toe(s) M79.674 ; Pain in left toe(s) M79.675 ; Unspecified atherosclerosis of eek arteries of extremities, bilateral legs I70.203 and Acquired keratosis [keratoderma] palmaris et plantaris L85.1 [facility] [address], [place] [id number] 08/27/2024 MICHELLE ZAMBRANO Tinea unguium B35.1 ; Pain in right toe(s) M79.674 ; Pain in left toe(s) M79.675 ; Atherosclerosis of eek arteries of extremities with intermittent claudication, bilateral legs I70.213 and Acquired keratoderma L85.1 Assessments Encounter Date Diagnosis (ICD Code) Assessment Notes Treatment Notes Treatment Clinical Notes Section Notes 12/12/2023 Tinea unguium (ICD-10 - B35.1) Aseptic debridement [...] educated regarding both OTC and prescription treatments. 12/12/2023 Other hammer toe(s) (acquired), right foot (ICD-10 [...] were discussed, but conservative options were emphasized. 02/20/2024 Tinea unguium (ICD-10 - B35.1) Aseptic debridement [...] educated regarding both OTC and prescription treatments. 02/20/2024 Other hammer toe(s) (acquired), right foot (ICD-10 [...] were discussed, but conservative options were emphasized. 04/23/2024 Tinea unguium (ICD-10 - B35.1) Aseptic debridement [...] educated regarding both OTC and prescription treatments. 04/23/2024 Other hammer toe(s) (acquired), right foot (ICD-10 [...] discussed, but conservative options were emphasized. 06/25/2024 Other hammer toe(s) (acquired), right foot [...] educated regarding both OTC and prescription treatments. 08/27/2024 Tinea unguium (ICD-10 - B35.1) FUNGAL [...] in left toe(s) (ICD-10 - M79.675) 06/25/2024 Other hammer toe(s) (acquired), left foot (ICD-10 - M20.42) 04/23/2024 Other hammer toe(s) (acquired), left foot (ICD-10 - M20.42) 02/20/2024 Other hammer toe(s) (acquired), left foot (ICD-10 - M20.42) 12/12/2023 Other hammer toe(s) (acquired), left foot (ICD-10 - M20.42) 12/12/2023 Pain in right toe(s) (ICD-10 - M79.674) 04/23/2024 Pain in right toe(s) (ICD-10 - M79.674) 02/20/2024 Pain in right toe(s) (ICD-10 - M79.674) 06/25/2024 Pain in right toe(s) (ICD-10 - M79.674) 08/27/2024 Atherosclerosis of eek arteries of extremities with intermittent claudication, bilateral legs (ICD-10 - I70.213) 06/25/2024 Pain in left toe(s) (ICD-10 - M79.675) 08/27/2024 Acquired keratoderma (ICD-10 - L85.1) 02/20/2024 Pain in left toe(s) (ICD-10 - M79.675) 04/23/2024 Pain in left toe(s) (ICD-10 - M79.675) 12/12/2023 Pain in left toe(s) (ICD-10 - M79.675) 12/12/2023 Pain in right foot (ICD-10 - M79.671) 02/20/2024 Pain in right foot (ICD-10 - M79.671) 04/23/2024 Unspecified atherosclerosis of eek arteries of extremities, bilateral legs (ICD-10 - [...] both OTC and prescription treatments. d 06/25/2024 Unspecified atherosclerosis of eek arteries of extremities, bilateral legs (ICD-10 - [...] and no infection or drainage was noted. 04/23/2024 Acquired keratosis [keratoderma] palmaris et plantaris (ICD-10 [...] and no infection or drainage was noted. 02/20/2024 Pain in left foot (ICD-10 - M79.672) 12/12/2023 Pain in left foot (ICD-10 - M79.672) 12/12/2023 Unspecified atherosclerosis of eek arteries of extremities, bilateral legs (ICD-10 - [...] regarding both OTC and prescription treatments. d 02/20/2024 Unspecified atherosclerosis of eek arteries of extremities, bilateral legs (ICD-10 - [...] regarding both OTC and prescription treatments. d 02/20/2024 Acquired keratosis [keratoderma] palmaris et plantaris (ICD-10 [...] and no infection or drainage was noted. 12/12/2023 Acquired keratosis [keratoderma] palmaris et plantaris (ICD-10 [...] or drainage was noted. Plan Of Treatment Next Appt Details Provider Name:MICHELLE KENYA, 03:10:00 PM, [address] [place] [address], [phone], Insurance Providers Payer Name Payer Address Payer Phone Subscriber Number Group Number Insured Name Patient Relationship to Insured Coverage Start Date Coverage End Date Medicare Part B [facility] [address] [place] [phone] [id number] GRACIA GRAVES Self - patient is the insured [address] [address] [id number] GRACIA GRAVES Self - patient is the insured
--- OUTSIDE RECORDS SUMMARY | 2024-10-19 11:47 | XMS_ITS | Clinical Summary ---
Author Organization [facility] Address [address] [facility] [place] [address] Care Team Providers Care Bottle Filler Name Role Phone Rossy Ray MD Primary Care Provider + Allergies No known active allergies Medications levothyroxine 88 mcg tablet Take 88 mcg by mouth daily administrative assistant front desk. Active losartan (COZAAR) 25 mg tablet Take 25 mg by mouth daily. Active triamterene-hyd roCHLOROthiazid e (MAXZIDE 25) 37.5-25 mg tablet Take 0.5 Tablets by mouth daily. Active omeprazole (PriLOSEC) 20 mg Capsule, Delayed Release(E.C.) Take 20 mg by mouth daily. Active cetirizine (ZyrTEC) 10 mg tablet Take 10 mg by mouth daily. Active acetaminophen (TYLENOL) 500 mg tablet Take 500 mg by mouth every 6 hours as needed. Active ibuprofen (MOTRIN) 200 mg tablet Take 200 mg by mouth every 6 hours as needed for Pain, Mild. Active Active Problems Problem Noted Date Diagnosed Date Sarcoidosis 08/01/2018 Lymphadenopathy 06/13/2018 Family History Medical History Relation Name Comments No Known Problems Brother 1 No Known Problems Brother 2 No Known Problems Brother 3 Heart Disease Father Other Father Heart Disease Mother No Known Problems Sister 1 Cancer Sister 2 Relation Name Status Comments Brother 1 Alive Brother 2 Alive Brother 3 Alive Father Mother Sister 1 Alive Sister 2 Alive Social History Tobacco Use Types Packs/Day Years Used Date Smoking Tobacco: Never Alcohol Use Standard Drinks/Week Comments Yes 0 (1 standard drink = 0.6 oz pur e alcohol) occasional Comments No Sex and Gender Information Value Date Recorded Sex Assigned at Not on file Legal Sex Female 9:55 AM CDT Gender Identity Not on file Sexual Orientation Not on file Last Filed Vital Signs Vital Sign Reading Time Taken Comments Blood Pressure 144/85 11/12/2018 12:36 PM CDT Pulse 86 11/12/2018 12:36 PM CDT Temperature 36.7 C (98 F) 11/12/2018 12:36 PM CDT Respiratory Rate 18 08/01/2018 10:28 AM COLOR SPECIALIST Oxygen Saturation 93% 11/12/2018 12:36 PM CDT Inhaled Oxygen Concentration - - Weight 93.3 kg (205 lb 9.6 oz) 11/12/2018 12:36 PM CDT Height 157.5 cm (5' 2 ) 11/12/2018 12:36 PM CDT Body Mass Index 37.6 11/12/2018 12:36 PM CDT Plan of Treatment Health Maintenance Due Date Last Done Comments DTAP/TDAP/TD VACCINES (1 - Tdap) 02/28/1963 PNEUMOCOCCAL VACCINE 50+ YEA RS (1 of 1 - PCV) 02/28/1994 ZOSTER VACCINE (1 of 2) 02/28/1994 RSV VACCINE (60+ or ) (1 - 1-dose 75+ series) 02/28/2019 INFLUENZA VACCINE (#1) 2024 COLORECTAL SCREENING Discontinued 07/04/2018, 07/04/20 18 Colorectal Cancer Screening Discontinued OSTEOPOROSIS SCREENING Completed 05/01/2019, 2014 FIT-DNA Q 3 years Discontinued FIT/FOBT Q 1 year Discontinued Flex Sig/CT Colonography Q 5 years Discontinued Procedures Procedure Name Priority Date/Time Associated Diagnosis Comments COLONOSCOPY REPORT Routine 07/04/2018 from Last 3 Months or Most Recently Relevant to Health Maintenance Results * COLONOSCOPY REPORT (07/04/2018) us Abstract Provider GI PROCEDURE ORDERABLES Final Result [facility] from Last 3 Months or Most Recently Relevant to Health Maintenance Insurance MEDICARE PART A AND B [facility] DORINA FRANCO [facility] Care Teams Bottle Filler Relationship Specialty Start Date End Date Rossy Ray MD [address] [place] [address] PCP - General Internal Medicine 06/13/18
[2024-10-19 16:16] LABS: Toxigenic C. Diff NEGATIVE (NEGATIVE)
== END 2024-10-19 10:03 | disposition home or self-care (01) ==
LOC: CHSLAB 10:05
PROVIDERS: PCP Internal Medicine; Visit Provider Internal Medicine
DX: J06.9 Acute upper respiratory infection, unspecified (principal); R10.32 Left lower quadrant pain; R05.9 Cough, unspecified; R11.0 Nausea; R19.7 Diarrhea, unspecified; K57.92 Diverticulitis of intestine, part unspecified, without perforation or abscess without bleeding
CPT/HCPCS: 36415; 74177; 80053; 82150; 83690; 85025; 87493; 87637; Q9967

== ENCOUNTER 2024-11-24 09:18 | Outpatient (CLI) | payer MEDICARE, SELFPAY ==
--- NOTE | ~2024-11-24 | DEXA_ITS ---
Bone Density Report Name: GRACIA GRAVES Age: 79 Sex: Female Ethnicity: White Date of : 1945 Indication: osteopenia; height loss; hysterectomy; Referring Provider: Rossy Ray Study: Bone densitometry was performed. Exam Date: November 24, 2024 Accession number: [id number] Bone Density: Region BMD T-score Z-score Classification AP Spine(L1-L4) 1.127 0.7 3.4 Normal Femoral Neck (Left) 0.586 -2.4 0.0 Osteopenia Total Hip (Left) 0.761 -1.5 0.6 Osteopenia Femoral Neck (Right) 0.643 -1.9 0.5 Osteopenia Total Hip (Right) 0.758 -1.5 0.6 Osteopenia Femoral Neck Mean 0.614 -2.1 0.2 Osteopenia Total Hip Mean 0.760 -1.5 0.6 Osteopenia World Health Organization criteria for BMD impression classify patients as: Normal (T-score at or above -1.0), Osteopenia (T-score between -1.0 and -2.5), or Osteoporosis (T-score at or below -2.5). 10-year Fracture Risk(1): Major Osteoporotic Fracture 17% Hip Fracture 5.3% Reported Risk Factors: [place] (), Neck BMD=0.586, BMI=33.8 (1) FRAX(R) Version 3.08. Fracture probability calculated for an untreated patient. Fracture probability may be lower if the patient has received treatment. Previous Exams: Region Exam Age BMD T-score BMD Change BMD Change Date g/cm2 vs Baseline vs Previous Total Hip(Left) 11/24/2024 79 0.761 -1.5 0.003 (0.5%) 0.003 (0.5%) 10/16/2021 76 0.758 -1.5 Total Hip(Right) 11/24/2024 79 0.758 -1.5 0.003 (0.4%) 0.003 (0.4%) 10/16/2021 76 0.756 -1.5 *Denotes significance at 95% confidence level, LSC for Total Hip = 0.027 g/cm2 Clinical Information Provided by Patient: Has the following medical conditions: Hysterectomy Patient maximum height was 65 Menopause Age: 49 No regular weight bearing exercise Drinks caffeinated beverages Onset of menses at age 11 Number of children 2 Impression: The patient has low bone mass, based on the Left Femoral Neck T-score. No significant bone loss was observed. Discussion: BONE DENSITY IS LOW AT ONE OR MORE SKELETAL SITES. This patient's lowest T-score is low at one or more skeletal sites. It meets the World Health Organization's (WHO) criteria for ?low bone mass? (T-score between -1.0 and -2.5). The patient's 10-year risk of fracture as calculated by FRAX is less than the threshold where pharmacological therapy is recommended by the National Osteoporosis Foundation (NOF). However, all treatment decisions require clinical judgment and consideration of individual patient factors, including patient preferences, comorbidities, previous drug use, risk factors not captured in the FRAX model (e.g., frailty, falls, vitamin D deficiency, increased bone turnover, interval significant decline in bone density) and possible under or overestimation of fracture risk by FRAX. The patient should follow a healthful lifestyle (good nutrition with adequate calcium and vitamin D, and appropriate weight-bearing exercise). Follow-Up: Consider repeating this study in 2 to 3 years to reassess this patient's status, or sooner if there is some new clinical indication. Reported by: CRYS on 11/24/2024 9:47:00 AM. Reviewed, dictated and finalized at location A.
--- OUTSIDE RECORDS SUMMARY | 2024-11-24 09:48 | XMS_ITS | Patient Health Record ---
Author Organization [facility] Address [address] [place], [place] [id number] Care Team Providers Care Pulp Cooker Name Role Phone Missy Ray Primary Care Provider MICHELLE Reveles Unavailable [phone] ROBERT DIAS Unavailable [phone] Allergies No Known Allergies Reason For Referral [...] 02/20/2024 Encounters Encounter Location Date Provider Diagnosis [address] [id number] 10/29/2024 MICHELLE ZAMBRANO Tinea unguium B35.1 ; Pain in right foot M79.671 ; Pain in left foot M79.672 ; Atherosclerosis of [place] arteries of extremities with intermittent claudication, bilateral legs I70.213 and Acquired keratosis [keratoderma] palmaris et plantaris L85.[address] [id number] 12/12/2023 ROBERT DIAS Other hammer toe(s) (acquired), right foot M20.41 ; Tinea unguium B35.1 ; Other hammer toe(s) (acquired), left foot M20.42 ; Pain in right toe(s) M79.674 ; Pain in left toe(s) M79.675 ; Pain in right foot M79.671 ; Pain in left foot M79.672 ; Unspecified atherosclerosis of [place] arteries of extremities, bilateral legs I70.203 and Acquired keratosis [keratoderma] palmaris et plantaris L85.[address] [id number] 02/20/2024 ROBERT DIAS Other hammer toe(s) (acquired), right foot M20.41 ; Tinea unguium B35.1 ; Other hammer toe(s) (acquired), left foot M20.42 ; Pain in right toe(s) M79.674 ; Pain in left toe(s) M79.675 ; Pain in right foot M79.671 ; Pain in left foot M79.672 ; Unspecified atherosclerosis of [place] arteries of extremities, bilateral legs I70.203 and Acquired keratosis [keratoderma] palmaris et plantaris L85.[address] [id number] 04/23/2024 ROBERT AMADORJUANITA Other hammer toe(s) (acquired), right foot M20.41 ; Tinea unguium B35.1 ; Other hammer toe(s) (acquired), left foot M20.42 ; Pain in right toe(s) M79.674 ; Pain in left toe(s) M79.675 ; Unspecified atherosclerosis of [place] arteries of extremities, bilateral legs I70.203 and Acquired keratosis [keratoderma] palmaris et plantaris L85.[address] [id number] 06/25/2024 ROBERT DIAS Other hammer toe(s) (acquired), right foot M20.41 ; Tinea unguium B35.1 ; Other hammer toe(s) (acquired), left foot M20.42 ; Pain in right toe(s) M79.674 ; Pain in left toe(s) M79.675 ; Unspecified atherosclerosis of [place] arteries of extremities, bilateral legs I70.203 and Acquired keratosis [keratoderma] palmaris et plantaris L85.1 [facility] [address] [place], [place] [id number] 08/27/2024 MICHELLE ZAMBRANO Tinea unguium B35.1 ; Pain in right toe(s) M79.674 ; Pain in left toe(s) M79.675 ; Atherosclerosis of [place] arteries of extremities with intermittent claudication, bilateral [...] Pain in right toe(s) (ICD-10 - M79.674) 10/29/2024 Tinea unguium (ICD-10 - B35.1) Nails 1-5 Bilateral were debrided extensively with nail nippers and emery board, reducing length and girth to pink healthy tissue with any subungual debris and necrotic tissue removed 10/29/2024 Pain in right foot (ICD-10 - M79.671) 10/29/2024 Pain in left foot (ICD-10 - M79.672) 08/27/2024 Pain in left toe(s) (ICD-10 - [...] toe(s) (ICD-10 - M79.674) 08/27/2024 Atherosclerosis of [place] arteries of extremities with intermittent claudication, bilateral legs (ICD-10 - I70.213) 10/29/2024 Atherosclerosis of [place] arteries of extremities with intermittent claudication, bilateral legs (ICD-10 - I70.213) 10/29/2024 Acquired keratosis [keratoderma] palmaris et plantaris (ICD-10 - L85.1) A total of 1 corns or calluses, as described in the note above, were cut and pared utilizing a #15 blade 08/27/2024 Acquired keratoderma (ICD-10 - L85.1) 06/25/2024 Pain in left toe(s) (ICD-10 - M79.675) 02/20/2024 Pain in left toe(s) (ICD-10 - M79.675) 04/23/2024 Pain in left toe(s) (ICD-10 - M79.675) 12/12/2023 Pain in left toe(s) (ICD-10 - M79.675) 12/12/2023 Pain in right foot (ICD-10 - M79.671) 02/20/2024 Pain in right foot (ICD-10 - M79.671) 04/23/2024 Unspecified atherosclerosis of [place] arteries of extremities, bilateral legs (ICD-10 - [...] prescription treatments. d 06/25/2024 Unspecified atherosclerosis of [place] arteries of extremities, bilateral legs (ICD-10 - [...] (ICD-10 - M79.672) 12/12/2023 Unspecified atherosclerosis of [place] arteries of extremities, bilateral legs (ICD-10 - [...] prescription treatments. d 02/20/2024 Unspecified atherosclerosis of [place] arteries of extremities, bilateral legs (ICD-10 - [...] Treatment Next Appt Details Provider Name:CRISTOFER KIMBALL, 12/31/2024 02:50:00 PM, [address] [place] [address], [id number], Insurance Providers Payer Name Payer Address Payer Phone Subscriber Number Group Number Insured Name Patient Relationship to Insured Coverage Start Date Coverage End Date Medicare Part B [place] [address] [phone] [id number] GRACIA GRAVES Self - patient is the insured [address] [address] [id number] GRACIA GRAVES Self - patient is the insured
--- OUTSIDE RECORDS SUMMARY | 2024-11-24 09:48 | XMS_ITS | Referral Summary ---
Author Organization [facility] [address] Address [address] [place] [address] Care Team Providers Care Filtering Machine Tender Name Role Phone Rossy Ray MD Primary Care Provider + [phone] Allergies No known active allergies Medications levothyroxine (SYNTHROID) 88 mcg tablet Take 88 mcg by mouth audioprosthologist before breakfast Active losartan (COZAAR) 50 mg [...] on file Legal Sex Female 2:54 AM DERRICK FOLLOWER Gender Identity Not on file Sexual Orientation Not on file Last Filed Vital Signs Vital Sign Reading Time Taken Comments Blood Pressure 128/70 08/15/2020 2:16 PM DERRICK FOLLOWER Pulse 74 08/15/2020 2:16 PM DERRICK FOLLOWER Temperature - - Respiratory Rate - - Oxygen Saturation 97% 08/15/2020 2:16 PM DERRICK FOLLOWER Inhaled Oxygen Concentration - - Weight 90 kg (198 lb 6.4 oz) 08/15/2020 2:16 PM DERRICK FOLLOWER Height 160 cm (5' 3 ) 08/15/2020 2:16 PM DERRICK FOLLOWER Body Mass Index 35.14 08/15/2020 2:16 PM DERRICK FOLLOWER Plan of Treatment Not on file Insurance MEDICARE [facility] MEDICARE SUPPLEMENT INSURANCE Care Teams Filtering Machine Tender Relationship Specialty Start Date End Date Rossy Ray MD [address] [place] [address] PCP - General 01/08/13
--- OUTSIDE RECORDS SUMMARY | 2024-11-24 09:48 | XMS_ITS | Encounter Summary ---
Author Organization [facility] Address [address] [place] [address] Care Team Providers Care Marketing Analyst Name Role Phone Unavailable Primary Care Provider Unavailabl e Encounter Details Date Type Department Care Team (Late st Contact Info) Description 10/04/2021 Lab Requisition [facility] [address] [place] [phone] Terrance Vyas MD [address] [place], [place] [id number] Social History Tobacco Use Types Packs/Day Years Used Date Smoking Tobacco: Never Assessed Comments Unknown Sex and Gender Information Value Date Recorded Sex Assigned at Not on file Legal Sex Female 11:13 AM COPPER ROLLER HANDLER PRINTING Gender Identity Not on file Sexual Orientation Not on file documented as of this encounter Plan of Treatment Not on file documented as of this encounter Procedures Procedure Name Priority Date/Time Associated Diagnosis Comments DERMATOPATHOLOGY Routine 10/03/2021 12:0 0 AM COPPER ROLLER HANDLER PRINTING documented in this encounter Results * DERMATOPATHOLOGY (10/03/2021 12:00 AM COPPER ROLLER HANDLER PRINTING) Case Report Dermatopathology Report Case: [id number] Authorizing Provider: Terrance Vyas MD Collected: 10/03/2021 12:00 AM Ordering Location: [facility] Received: 10/04/2021 02:25 PM Pathologist: Den Vaughan MD Specimens: A) - Skin, left central cheek B) - Skin, left proximal ext forearm 2 4:20 PM COPPER ROLLER HANDLER PRINTING DERMATOPATHOLOGY LABORATORY Addendum 1 Specimen B: The lesion is not present at the sampled margin of the specimen. 2 4:20 PM COPPER ROLLER HANDLER PRINTING DERMATOPATHOLOGY LABORATORY Addendum electronically signed by Den Vaughan MD on 10/09/2021 at 4:20 PM Final Diagnosis Specimen A. SKIN, left central cheek: BASAL CELL CARCINOMA, INFILTRATIVE PATTERN (C44.319) Specimen B. 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 B: R/O BCC. 2 4:20 PM [facility]ER[facility]Y [facility]AT[facility] Gross Description Specimen A: Received is one formalin filled container labeled with the patient's name and designated left central cheek. The specimen consists of a shave biopsy measuring [id number]. Jar 0. Specimen B: Received is one formalin filled container labeled with the patients name and designated left proximal ext forearm. The specimen consists of a shave removal measuring [id number]. Jar 0. 2 4:20 PM [facility] DERMATOPATH[facility]ORY Microscopic Description Specimen A. SKIN, [...] levels, and dyskeratotic cells. 2 4:20 PM [facility] Disclaimer An external and internal positive and negative controls are appropriate for the histochemical, immunohistochemical and immunofluorescence stain(s) in this case (if any), except where stated explicitly. The performance characteristics of the stain(s) cited in this report were developed and its performance characteristic determined by the Dermatopathology Laboratory at [facility], directed by Dr. Rene Vaughan. These tests need not be, and therefore are not, approved by the [place] Food and Drug Administration. The tests are used for clinical purposes. Billing Codes Specimen Charges Stain Charges 45937 98215 1 1 2 4:20 PM [facility]ER[facility] Embedded Images 2 4:20 PM COPPER ROLL[employer] HANDL[employer] PRINTING DERMATOPATHOLOGY LABORATORY Pathology/Cytology TISSUE SPECIMEN FROM SKIN / Unknown 10/03/2021 10/04/2021 2:25 PM COPPER ROLLER HANDLER PRINTING Miscellaneous samples (specimen) TISSUE SPECIMEN FROM SKIN / Unknown 10/03/2021 10/04/2021 2:25 PM COPPER ROLLER HANDLER PRINTING Terrance Vyas MD LAB - PATHOLOGY/CYTOLOGY ORD ERABLES Edited Result - Final DERMATOPATHOLOGY LABORATORY [facility] - Department of Dermatology [facility] [address] [place] [address], [address] [phone] documented in this encounter Visit Diagnoses Not on filedocumented in this encounter
--- OUTSIDE RECORDS SUMMARY | 2024-11-24 09:48 | XMS_ITS | Encounter Summary ---
Author Organization [facility] Address [address] [facility] [place] [address] Care Team Providers Care Darkroom Worker Name Role Phone Unavailable Primary Care Provider Unavailabl e Encounter Details Date Type Department Care Team (Late st Contact Info) Description 07/23/2018 Lab Requisition [facility] Care Pathology Lab [address] [place] [address] Fernando Jean MD [address] [place] [id number] Generalized enlarged lymph nodes Social History Tobacco Use Types Packs/Day Years Used Date Smoking Tobacco: Never Assessed Comments Unknown Sex and Gender Information Value Date Recorded Sex Assigned at Not on file 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 Gender Identity Not on file Sexual Orientation Not on file documented as of this encounter Plan of Treatment Not on file documented as of this encounter Procedures Procedure Name Priority Date/Time Associated Diagnosis Comments FLOW CYTOMETRY TISSUE PANEL Routine 07/23/2018 12:37 PM PAD MACHINE OFFBEARER Generalized enlarged lymph nodes documented in this encounter Results * FLOW CYTOMETRY TISSUE PANEL (07/23/2018 12:37 PM PAD MACHINE OFFBEARER) Case Report Flow Cytometry Case: [id number] Authorizing Provider: Fernando Jean MD Collected: 07/23/2018 12:37 PM Pathologist: Micheline Pineda MD Received: 07/23/2018 03:19 PM Specimen: Lymph Node 8 7:38 AM [facility] Final Diagnosis Lymph node, left inguinal, flow cytometric immunophenotypic analysis: - Elevated CD4:CD8 ratio (12:1). - See interpretation. 8 7:38 AM [facility] Flow Cytometry Interpretation The left [...] the flow cytometry specimen is reviewed for water quality manager purposes. The left inguinal lymph node shows the presence of an elevated CD4:CD8 ratio. The etiology for this process may be reactive in nature, or this could represent a lymphoproliferative process. Correlation with clinical findings and the concurrent tissue biopsy is required. KR/NW 8 7:38 AM [facility] PATHOLOGY LAB Flow Cytometry Results Differential Result Comment Flow Cell Count /uL 1380 Total Viability % 35.0 Lymphocytes % 78 Dim CD45 Region % 3 Monocytes % 6 Granulocytes % 9 8 7:38 AM [facility] PATH[facility] Reason for test Generalized enlarged lymph nodes 785.6 8 7:38 AM [facility] PATH[facility] Client Specimen ID # [id number] 8 7:38 AM [facility] PATH[facility] Number of markers 16 were performed. A Flow CD3 A Flow CD10 A Flow CD20 A Flow CD23 A Flow CD2 A Flow CD4 A Flow CD1a A Flow CD5 A Flow CD19 A Flow CD34 A Flow CD45 A Flow CD7 A Flow CD8 A Flow CD30 A [place]+CD19+ A Lambda+CD19+ 8 7:38 AM [facility] PATHOLOGY LAB Disclaimer Test performed at [facility], [address] [place] [address], [id number]. *The established laboratory minimum viability is 70%. [...] high complexity clinical testing. 8 7:38 AM PAD MACHINE OFFBEARER [facility] PATHOLOGY LAB Embedded Images 8 7:38 AM PAD MACHINE OFFBEARER [facility] PATHOLOGY LAB Pathology/Cytolo gy ENTIRE LYMPH NODE / Unknown 07/23/2018 12:37 PM PAD MACHINE OFFBEARER 07/23/2018 3:19 PM PAD MACHINE OFFBEARER Fernando Jean MD LAB - PATHOLOGY/CYTOLOGY ORDER BOYD Final Result [facility] PATHOLOGY LAB [address] [phone] documented in this encounter Visit Diagnoses Diagnosis Generalized enlarged lymph nodes Enlargement of lymph nodes documented in this encounter
--- OUTSIDE RECORDS SUMMARY | 2024-11-24 09:48 | XMS_ITS | Clinical Summary ---
Author Organization [facility] Address [address] [facility] [address] Care Team Providers Care Vp Human Resources Name Role Phone Unavailable Primary Care Provider Unavailabl e Source Comments [facility],non-owned Affiliates and Associated Physician Practices is amultiple site organization consisting of ambulatory clinics and hospital sitesin [place], [place], [place] and [place]. This disclosure is being madepursuant to the Care Everywhere program and may not contain all information available regarding this patient. 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 Gender Identity Not on file Sexual Orientation [...] VACCINE ( - 2023-2 5 season) 2024 DEPRESSION SCREENING 08/12/2024 INFLUENZA VACCINE (Season Ended) 2025 HEPATITIS B VACCINE Aged Out No longe r eligible based on patient's age to complete this topic HIB VACCINE Aged Out No longer eligi ble based on patient's age to complete this topic HPV VACCINE Aged Out No longer eligi ble based on patient's age to complete this topic MENINGOCOCCAL (Group B) VACC INE SHARED DECISION-MAKING Aged Out No longer eligibl e based on patient's age to complete this topic MENINGOCOCCAL GROUPS A/C/Y/W VACCINE Aged Out No longer eligible b ased on patient's age to complete this topic Insurance MEDICARE
--- OUTSIDE RECORDS SUMMARY | 2024-11-24 09:48 | XMS_ITS | Clinical Summary ---
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 Active losartan (COZAAR) 50 mg [...] on file Legal Sex Female 2:54 AM LABORER OPERATOR Gender Identity Not on file Sexual Orientation Not on file Obstetrics History Last Filed Vital Signs Vital Sign Reading Time Taken Comments Blood Pressure 128/70 08/15/2020 2:16 PM LABORER OPERATOR Pulse 74 08/15/2020 2:16 PM LABORER OPERATOR Temperature - - Respiratory Rate - - Oxygen Saturation 97% 08/15/2020 2:16 PM LABORER OPERATOR Inhaled Oxygen Concentration - - Weight 90 kg (198 lb 6.4 oz) 08/15/2020 2:16 PM LABORER OPERATOR Height 160 cm (5' 3 ) 08/15/2020 2:16 PM LABORER OPERATOR Body Mass Index 35.14 08/15/2020 2:16 PM LABORER OPERATOR Plan of Treatment Not on file Insurance MEDICARE [facility] MEDICARE SUPPLEMENT INSURANCE Care Teams Costume Specialist Relationship Specialty Start Date End Date Rossy Ray MD [address] [place], [place] [id number] PCP - General 01/08/13
--- OUTSIDE RECORDS SUMMARY | 2024-11-24 09:48 | XMS_ITS | Clinical Summary ---
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 Active losartan (COZAAR) 25 mg tablet Take [...] CDT Respiratory Rate 18 08/01/2018 10:28 AM FISH NET MAKER Oxygen Saturation 93% 11/12/2018 12:36 PM CDT [...] Maintenance Insurance MEDICARE PART A AND B [facility] Care Teams Housing Inspectors Relationship Specialty Start Date End Date Rossy Ray MD [address] [place] [address] PCP - General Internal Medicine 06/13/18
--- OUTSIDE RECORDS SUMMARY | 2024-11-24 09:48 | XMS_ITS | Encounter Summary ---
Author Organization [facility] Address [address] [place] [address] Care Team Providers Care Sql Data Architect Name Role Phone Unavailable Primary Care Provider Unavailabl e Encounter Details Date Type Department Care Team (Late st Contact Info) Description 03/21/2022 Lab Requisition [facility] [address] [place] [phone] Terrance Vyas MD [address] [place] [address] Social History Tobacco Use Types Packs/Day Years Used Date Smoking Tobacco: Never Assessed Comments Unknown Sex and Gender Information Value Date Recorded Sex Assigned at Not on file 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 Gender Identity Not on file Sexual Orientation Not on file documented as of this encounter Plan of Treatment Not on file documented as of this encounter Procedures Procedure Name Priority Date/Time Associated Diagnosis Comments DERMATOPATHOLOGY Routine 03/20/2022 3:33 AM CDT documented in this encounter Results * DERMATOPATHOLOGY (03/20/2022 3:33 AM CDT) Case Report Dermatopathology Report Case: [id number] Authorizing Provider: Terrance Vyas MD Collected: 03/20/2022 03:33 AM Ordering Location: [facility] Received: 03/21/2022 11:09 AM Pathologist: Belén Perez MD Specimen: Skin, left side nose 3:59 PM CDT DERMATOPATHOLOGY LABORATORY Final Diagnosis Specimen A. SKIN, left side nose: BASAL CELL CARCINOMA, NODULAR TYPE; SUPERFICIAL PORTIONS OF (C44.311) ACTINIC KERATOSIS (L57.0) (see microscopic description) 08/11/202 2 3:59 PM CDT DERMATOPATHOLOGY LABORATORY Clinical History R/O SCC, BCC, HAK 2 3:59 PM CDT DERMATOPATHOLOGY LABORATORY Gross Description Specimen A: Received is one formalin filled container labeled with the patient's name and designated left side nose. The specimen consists of a shave biopsy measuring [id number]. Jar 0. 2 3:59 PM CDT DERMATOPATHOLOGY [...] characteristic determined by the Dermatopathology Laboratory at [facility], directed by Dr. Rene Vaughan. These tests need not be, and therefore are not, approved by the [place] Food and Drug Administration. The tests are used for clinical purposes. Billing Codes Specimen Charges Stain Charges 54743 1 2 3:59 PM CDT DERMATOPATHOLOGY LABORATORY Embedded Images 2 3:59 PM CDT DERMATOPATHOLOGY LABORATORY Pathology/Cytolo gy TISSUE SPECIMEN FROM SKIN / Unknown 03/20/2022 3:33 AM CDT 03/21/2022 11:09 AM CDT us Terrance Vyas MD LAB - PATHOLOGY/CYTOLOGY ORD ERABLES Final Result DERMATOPATHOLOGY LABORATORY [facility] - Department of Dermatology [address] [place] [address], [facility] [phone] documented in this encounter Visit Diagnoses Not on filedocumented in this encounter
--- OUTSIDE RECORDS SUMMARY | 2024-11-24 09:49 | XMS_ITS ---
Author Organization [facility] Address [address] [place], [place] [id number] Care Team Providers Care Mixing Machine Attendant Name Role Phone Missy Ray Primary Care Provider MICHELLE Reveles Unavailable [phone] Allergies No Known Allergies REASON FOR VISIT [...] Encounters Encounter Location Date Provider Diagnosis [facility] [address] [place], [place] [id number] 08/27/2024 MICHELLE ZAMBRANO Tinea unguium B35.1 ; Pain in right toe(s) M79.674 ; Pain in left toe(s) M79.675 ; Atherosclerosis of [place] arteries of extremities with intermittent claudication, bilateral [...] toe(s) (ICD-10 - M79.675) 08/27/2024 Atherosclerosis of [place] arteries of extremities with intermittent claudication, bilateral [...] Foot care, sooner if problems arise Provider Name:CRISTOFER KIMBALL, 12/31/2024 02:50:00 PM, [address] [place] [address], [phone], Progress Notes * YU GRAVESB:1945 (79 yo F)Acc No.[id number]:08/27/2024 Patient: GRACIA RAPHAEL Provider: Brigid Zambrano DPM :1945 A ge:79 Y S ex:Female Date:08/27/2024 Address: [facility] Pcp:Missy Ray Subjective: * Chief [...] - M79.675 4 . 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 Modifiers: Q8 03329 DEBRIDE NAIL, 6 OR MORE. Modifiers: 59, Q8 * STERED NURSING PROFESSOR Sign off status: Completed true * Provider: Brigid Zambrano DPM Date: 0 08/27/2024 Generated for Aaliyah shah/Miguelina/Morgan on: 0 11/24/2024 09:48 AM CDT History and Physical Notes * [...]
== END 2024-11-24 09:19 | disposition home or self-care (01) ==
LOC: CHSIMG 09:19
PROVIDERS: PCP Internal Medicine; Visit Provider Internal Medicine
DX: Z78.0 Asymptomatic menopausal state (principal); M85.89 Other specified disorders of bone density and structure, multiple sites
CPT/HCPCS: 77080

== ENCOUNTER 2025-03-16 07:23 | Outpatient (CLI) | payer MEDICARE, SELFPAY ==
--- OUTSIDE RECORDS SUMMARY | 2025-03-16 07:29 | XMS_ITS | Clinical Summary ---
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 Gender Identity Not on file Sexual Orientation Not on file Obstetrics History Last Filed Vital Signs Vital Sign Reading Time Taken Comments Blood Pressure 128/70 08/15/2020 2:16 PM ELECTRONICS TECHNOLOGY INSTRUCTOR Pulse 74 08/15/2020 2:16 PM ELECTRONICS TECHNOLOGY INSTRUCTOR Temperature - - Respiratory Rate - - Oxygen Saturation 97% 08/15/2020 2:16 PM ELECTRONICS TECHNOLOGY INSTRUCTOR Inhaled Oxygen Concentration - - Weight 90 kg (198 lb 6.4 oz) 08/15/2020 2:16 PM ELECTRONICS TECHNOLOGY INSTRUCTOR Height 160 cm (5' 3) 08/15/2020 2:16 PM ELECTRONICS TECHNOLOGY INSTRUCTOR Body Mass Index 35.14 08/15/2020 2:16 PM ELECTRONICS TECHNOLOGY INSTRUCTOR Plan of Treatment Not on file Insurance MEDICARE ON LICENSE OF [facility] MEDICARE SUPPLEMENT INSURANCE Care Teams Hand Tile Maker Relationship Specialty Start Date End Date Rossy Ray MD [address] [place], [place] [id number] PCP - General 01/08/13
--- OUTSIDE RECORDS SUMMARY | 2025-03-16 07:29 | XMS_ITS | Encounter Summary ---
Author Organization [facility] Address [address] [facility] [place] [address] Care Team Providers Care Study Coordinator Name Role Phone Unavailable Primary Care Provider Unavailabl e Encounter Details Date Type Department Care Team (Late st Contact Info) Description 03/21/2022 Lab Requisition 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 Received: 03/21/2022 11:09 AM Pathologist: Belén Perez MD Specimen: Skin, left side nose 3:59 PM CDT DERMATOPATHOLOGY LABORATORY Final Diagnosis Specimen A. SKIN, left side nose: BASAL CELL CARCINOMA, NODULAR TYPE; SUPERFICIAL PORTIONS OF (C44.311) ACTINIC KERATOSIS (L57.0) (see microscopic description) 08/11/202 2 3:59 PM CDT DERMATOPATHOLOGY LABORATORY at 1559 CDT Clinical History R/O SCC, BCC, HAK 2 3:59 PM CDT DERMATOPATHOLOGY LABORATORY Gross Description Specimen A: Received is one formalin filled container labeled with the patient's name and designated left side nose. The specimen consists of a shave biopsy measuring [id number]. Jar 0. 2 3:59 PM CDT DERMATOPATHOLOGY [...] characteristic determined by the Dermatopathology Laboratory at [facility], directed by Dr. Rene Vaughan. These tests need not be, and therefore are not, approved by the [place] Food and Drug Administration. The tests are used for clinical purposes. Billing Codes Specimen Charges Stain Charges 06710 1 2 3:59 PM CDT DERMATOPATHOLOGY LABORATORY Embedded Images 2 3:59 PM CDT DERMATOPATHOLOGY LABORATORY Pathology/Cytolo gy TISSUE SPECIMEN FROM SKIN / Unknown 03/20/2022 3:33 AM CDT 03/21/2022 11:09 AM CDT us Terrance Vyas MD LAB - PATHOLOGY/CYTOLOGY ORD ERABLES Final Result DERMATOPATHOLOGY LABORATORY [facility] - Department of Dermatology [address] [place] [address], [facility] [phone] documented in this encounter Visit Diagnoses Not on filedocumented in this encounter
--- OUTSIDE RECORDS SUMMARY | 2025-03-16 07:29 | XMS_ITS | Clinical Summary ---
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 Active losartan (COZAAR) 25 mg tablet Take [...] CDT Respiratory Rate 18 08/01/2018 10:28 AM CHINCHILLA FARMER Oxygen Saturation 93% 11/12/2018 12:36 PM CDT Inhaled Oxygen Concentration - - Weight 93.3 kg (205 lb 9.6 oz) 11/12/2018 12:36 PM CDT Height 157.5 cm (5' 2) 11/12/2018 12:36 PM CDT Body Mass Index 37.6 11/12/2018 12:36 PM CDT Plan of Treatment Health Maintenance Due Date Last Done Comments DTAP/TDAP/TD VACCINES (1 - Tdap) 02/28/1963 PNEUMOCOCCAL VACCINE 50+ YEA RS (1 of 1 - PCV) 02/28/1994 ZOSTER VACCINE (1 of 2) 02/28/1994 RSV VACCINE (60+ or ) (1 - 1-dose 75+ series) 02/28/2019 OSTEOPOROSIS SCREENING 05/01/2024 05/01/2019, 2014 INFLUENZA VACCINE (#1) 2025 COLORECTAL SCREENING Discontinued 07/04/2018, 07/04/20 18 Colorectal Cancer Screening Discontinued FIT-DNA Q 3 years Discontinued FIT/FOBT Q [...] Maintenance Insurance MEDICARE PART A AND B [facility] DORINA FRANCO [id number] Care Teams Chief Contract Officer Relationship Specialty Start Date End Date Rossy Ray MD [address] [place] [address] PCP - General Internal Medicine 06/13/18
--- OUTSIDE RECORDS SUMMARY | 2025-03-16 07:29 | XMS_ITS | Referral Summary ---
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 Gender Identity Not on file Sexual Orientation Not on file Last Filed Vital Signs Vital Sign Reading Time Taken Comments Blood Pressure 128/70 08/15/2020 2:16 PM CUSTOMER MARKETING MANAGER Pulse 74 08/15/2020 2:16 PM CUSTOMER MARKETING MANAGER Temperature - - Respiratory Rate - - Oxygen Saturation 97% 08/15/2020 2:16 PM CUSTOMER MARKETING MANAGER Inhaled Oxygen Concentration - - Weight 90 kg (198 lb 6.4 oz) 08/15/2020 2:16 PM CUSTOMER MARKETING MANAGER Height 160 cm (5' 3) 08/15/2020 2:16 PM CUSTOMER MARKETING MANAGER Body Mass Index 35.14 08/15/2020 2:16 PM CUSTOMER MARKETING MANAGER Plan of Treatment Not on file Insurance MEDICARE [facility] MEDICARE SUPPLEMENT INSURANCE Care Teams Clinical Program Coordinator Relationship Specialty Start Date End Date Rossy Ray MD [address] [place] [address] PCP - General 01/08/13
--- OUTSIDE RECORDS SUMMARY | 2025-03-16 07:29 | XMS_ITS | Patient Health Record ---
Author Organization [facility] Address [address] [place], [place] [id number] Care Team Providers Care Sales Management Intern Name Role Phone Missy Ray Primary Care Provider UnavailMICHELLE Abebe Unavailable [phone] ROBERT DIAS Unavailable [phone] CRISTOFER JUNIOR Unavailable [phone] Allergies No Known Allergies Reason For Referral [...] 88 MCG Oral; Duration: 90 Days Active Immunizations Vaccine Route Administration Date Status Comme nts Influenza, high dose seasonal Unknown 05/24/2023 Admini stered Vital Signs Height-cm 160.02 cm 12/31/2024 Weight-kg 84.37 kg 12/31/2024 Height 63.00 in 12/31/2024 Weight 186 lbs 12/31/2024 BMI 32.94 kg/m2 12/31/2024 Encounters Encounter Location Date Provider Diagnosis [address] [id number] 12/31/2024 CRISTOFER JUNIOR Tinea unguium B35.1 ; Pain in right foot M79.671 ; Pain in left foot M79.672 ; Atherosclerosis of [place] arteries of extremities with intermittent claudication, bilateral legs I70.213 ; Acquired keratosis [keratoderma] palmaris et plantaris L85.1 ; Localized edema R60.0 and Primary osteoarthritis, left ankle and foot M19.[address] [id number] 03/11/2025 CRISTOFER SANDI Tinea unguium B35.1 ; Pain in right foot M79.671 ; Pain in left foot M79.672 ; Atherosclerosis of [place] arteries of extremities with intermittent claudication, bilateral legs I70.213 ; Acquired keratosis [keratoderma] palmaris et plantaris L85.1 ; Localized edema R60.0 and Primary osteoarthritis, left ankle and foot M19.072 [facility] [address] [place], [place] [phone] 04/23/2024 ROBERT DIAS Other hammer toe(s) (acquired), right foot M20.41 ; Tinea unguium B35.1 ; Other hammer toe(s) (acquired), left foot M20.42 ; Pain in right toe(s) M79.674 ; Pain in left toe(s) M79.675 ; Unspecified atherosclerosis of [place] arteries of extremities, bilateral legs I70.203 and Acquired keratosis [keratoderma] palmaris et plantaris L85.1 [facility] [address] [place], [place] [id number] 06/25/2024 ROBERT DIAS Other hammer toe(s) (acquired), right foot M20.41 ; Tinea unguium B35.1 ; Other hammer toe(s) (acquired), left foot M20.42 ; Pain in right toe(s) M79.674 ; Pain in left toe(s) M79.675 ; Unspecified atherosclerosis of [place] arteries of extremities, bilateral legs I70.203 and Acquired keratosis [keratoderma] palmaris et plantaris L85.1 [facility] [address] [place], [place] [id number] 08/27/2024 MICHELLE ZAMBRANO Tinea unguium B35.1 ; Pain in right toe(s) M79.674 ; Pain in left toe(s) M79.675 ; Atherosclerosis of [place] arteries of extremities with intermittent claudication, bilateral legs I70.213 and Acquired keratoderma L85.[address] [id number] 10/29/2024 MICHELLE ZAMBRANO Tinea unguium B35.1 ; Pain in right foot M79.671 ; Pain in left foot M79.672 ; Atherosclerosis of [place] arteries of extremities with intermittent claudication, bilateral legs I70.213 and Acquired keratosis [keratoderma] palmaris et plantaris L85.1 Assessments Encounter Date Diagnosis (ICD Code) Assessment Notes Treatment Notes Treatment Clinical Notes Section Notes 04/23/2024 Tinea unguium (ICD-10 - B35.1) Aseptic [...] subungual debris and necrotic tissue removed 12/31/2024 Tinea unguium (ICD-10 - B35.1) Nails 1-5 Bilateral were debrided extensively with nail nippers and emery board, reducing length and girth to pink healthy tissue with any subungual debris and necrotic tissue removed 10/29/2024 Pain in right foot (ICD-10 - M79.671) 12/31/2024 Pain in right foot (ICD-10 - M79.671) 03/11/2025 Tinea unguium (ICD-10 - B35.1) Nails 1-5 Bilateral were debrided extensively with nail nippers and emery board, reducing length and girth to pink healthy tissue with any subungual debris and necrotic tissue removed 03/11/2025 Pain in right foot (ICD-10 - M79.671) 03/11/2025 Pain in left foot (ICD-10 - M79.672) 12/31/2024 Pain in left foot (ICD-10 - M79.672) 10/29/2024 Pain in left foot (ICD-10 - M79.672) 08/27/2024 Pain in left toe(s) (ICD-10 - M79.675) 06/25/2024 Other hammer toe(s) (acquired), left foot (ICD-10 - M20.42) 04/23/2024 Other hammer toe(s) (acquired), left foot (ICD-10 - M20.42) 04/23/2024 Pain in right toe(s) (ICD-10 - M79.674) 06/25/2024 Pain in right toe(s) (ICD-10 - M79.674) 08/27/2024 Atherosclerosis of [place] arteries of extremities with intermittent claudication, bilateral legs (ICD-10 - I70.213) 10/29/2024 Atherosclerosis of [place] arteries of extremities with intermittent claudication, bilateral legs (ICD-10 - I70.213) 12/31/2024 Atherosclerosis of [place] arteries of extremities with intermittent claudication, bilateral legs (ICD-10 - I70.213) Check and protect LE bilateral daily. Call if any changes or concerns. 03/11/2025 Atherosclerosis of [place] arteries of extremities with intermittent claudication, bilateral [...] and pared utilizing a #15 blade 12/31/2024 Acquired keratosis [keratoderma] palmaris et plantaris (ICD-10 - L85.1) A total of 1 corns or calluses, as described in the note above, were cut and pared utilizing a #15 blade 10/29/2024 Acquired keratosis [keratoderma] palmaris et plantaris (ICD-10 - L85.1) A total of 1 corns or calluses, as described in the note above, were cut and pared utilizing a #15 blade 08/27/2024 Acquired keratoderma (ICD-10 - L85.1) 06/25/2024 Pain in left toe(s) (ICD-10 - M79.675) 04/23/2024 Pain in left toe(s) (ICD-10 - M79.675) 04/23/2024 Unspecified atherosclerosis of [place] arteries of extremities, bilateral legs (ICD-10 - [...] prescription treatments. d 06/25/2024 Unspecified atherosclerosis of [place] arteries of extremities, bilateral legs (ICD-10 - [...] regarding both OTC and prescription treatments. d 12/31/2024 Localized edema (ICD-10 - R60.0) Edema Recommendations: Advised patient on edema treatment recommendations. Recommendation for periodic elevation of feet and lower legs through the day. Recommend support compression hose. Recommend dietary restrictions salt intake. Followup with family physician for potential diuretic management if needed. 03/11/2025 Localized edema (ICD-10 - R60.0) Edema [...] Supportive wide toebox shoes were also discussed. 06/25/2024 Acquired keratosis [keratoderma] palmaris et plantaris [...] and no infection or drainage was noted. 12/31/2024 Primary osteoarthritis, left ankle and foot (ICD-10 - M19.072) Arch Supports OTC: Discussed various options for supporting the foot. Patient wishes to try over the counter arch supports. I recommend PowerStep or SuperFeet inserts. Supportive wide toebox shoes were also discussed. 04/23/2024 Acquired keratosis [keratoderma] palmaris et plantaris [...] Treatment Next Appt Details Provider Name:CRISTOFER KIMBALL, 05/13/2025 01:50:00 PM, [address] [place] [address], [id number], Insurance Providers Payer Name Payer Address Payer Phone Subscriber Number Group Number Insured Name Patient Relationship to Insured Coverage Start Date Coverage End Date Medicare Part B [place] [address] [place] [address] [id number] GRACIA GRAVES Self - patient is the insured [address] [address] [id number] GRACIA GRAVES Self - patient is the insured
--- OUTSIDE RECORDS SUMMARY | 2025-03-16 07:29 | XMS_ITS ---
Author Organization [facility] Address [address] [place], [place] [id number] Care Team Providers Care Teletype Adjuster Name Role Phone Missy Ray Primary Care Provider MICHELLE Reveles Unavailable [phone] CRISTOFER JUNIOR Unavailable [phone] REASON FOR VISIT *General care Medications Medication [...] Active Encounters Encounter Location Date Provider Diagnosis [address] [id number] 03/11/2025 CRISTOFER JUNIOR Tinea unguium B35.1 ; Pain in right foot M79.671 ; Pain in left foot M79.672 ; Atherosclerosis of [place] arteries of extremities with intermittent claudication, bilateral [...] foot (ICD-10 - M79.672) 03/11/2025 Atherosclerosis of [place] arteries of extremities with intermittent claudication, bilateral [...] debris and necrotic tissue removed Atherosclerosis of [place] ar teries of extremities with intermittent claudication, [...] care, sooner if problems develop. Provider Name:CRISTOFER V CATA KIMBALL, 05/13/2025 01:50:00 PM, [address] [place] [address], [id number], Progress Notes * OSORIO GRAVESADOB:1945 (80 yo F)Acc No.[id number]:03/11/2025 Patient: Robles GRACIA PEREZ Provider: Lorena JUNIOR :1945 A ge:80 Y S ex:Female Date:03/11/2025 Address: [facility] Pcp:Missy Ray Subjective: * Chief Complaints: * 1 . *General care. * ROS: G eneral / Constitutional: Patient denies w eakness. C ardiovascular: Patient denies c hest pain, history of [place], irregular heartbeat. M usculoskeletal: Patient complains of [...] - M79.672 4 . A therosclerosis of [place] arteries of extremities with intermittent claudication, bilateral legs - I70.213 5 . 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 L ocalized edema - R60.0 7 . P rimary osteoarthritis, left ankle and foot - M19.072 Plan: * Treatment: 2. A therosclerosis of [place] arteries of extremities with intermittent claudication, bilateral [...] wide toebox shoes were also discussed.? * Follow Up: 1 0 - 12 weeks (Reason: At-Risk Foot care, sooner if problems develop.) * Billing Information: * Visit Code: * Procedure Codes: * Electronic signature of ESME JUNIOR DPM on 03/16/2025 at 07:29 AM CDT Sign off status: Pending * Provider: Lorena JUNIOR Date: 0 03/11/2025 Generated for Aaliyah shah/Miguelina/Morgan on: 0 03/16/2025 07:29 AM CDT History and Physical Notes * Examination [...]
--- OUTSIDE RECORDS SUMMARY | 2025-03-16 07:29 | XMS_ITS | Encounter Summary ---
Author Organization [facility] Address [address] [place] [address] Care Team Providers Care Medical Staff Physician Name Role Phone Unavailable Primary Care Provider Unavailabl e Encounter Details Date Type Department Care Team (Late st Contact Info) Description 07/23/2018 Lab Requisition [facility] Care Pathology Lab [address] [place] [address] Fernando Jean MD [address] [place] [address] Generalized enlarged lymph nodes Social History Tobacco Use Types Packs/Day Years Used Date Smoking Tobacco: Never Assessed Comments Unknown Sex and Gender Information Value Date Recorded Sex Assigned at Not on file Legal Sex 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 Gender Identity Not on file Sexual Orientation Not on file documented as of this encounter Plan of Treatment Not on file documented as of this encounter Procedures Procedure Name Priority Date/Time Associated Diagnosis Comments FLOW CYTOMETRY TISSUE PANEL Routine 07/23/2018 12:37 PM FIGHTING VEHICLE INFANTRYMAN Generalized enlarged lymph nodes documented in this encounter Results * FLOW CYTOMETRY TISSUE PANEL (07/23/2018 12:37 PM FIGHTING VEHICLE INFANTRYMAN) Case Report Flow Cytometry Case: [id number] Authorizing Provider: Fernando Jean MD Collected: 07/23/2018 12:37 PM Pathologist: Micheline Pineda MD Received: 07/23/2018 03:19 PM Specimen: Lymph Node 8 7:38 AM [facility]U PATHOLOGY LAB Final Diagnosis Lymph node, left inguinal, flow cytometric immunophenotypic analysis: - Elevated CD4:CD8 ratio (12:1). - See interpretation. 8 7:38 AM [facility]U PATHOLOGY LAB at [address] [facility] Flow Cytometry Interpretation The left inguinal lymph [...] flow cytometry specimen is reviewed for quality and reliability engineer purposes. The left inguinal lymph node shows the presence of an elevated CD4:CD8 ratio. The etiology for this process may be reactive in nature, or this could represent a lymphoproliferative process. Correlation with clinical findings and the concurrent tissue biopsy is required. KR/NW 8 7:38 AM [facility] PATHOLOGY LAB Flow Cytometry Results Differential Result Comment Flow Cell Count /uL 1380 Total Viability % 35.0 Lymphocytes % 78 Dim CD45 Region % 3 Monocytes % 6 Granulocytes % 9 8 7:38 AM [facility] PATH[facility] Reason for test Generalized enlarged lymph nodes 785.6 8 7:38 AM [facility] PATH[facility] Client Specimen ID # [id number] 8 7:38 AM [facility] PATH[facility] LAB Number of markers 16 were performed. A Flow CD3 A Flow CD10 A Flow CD20 A Flow CD23 A Flow CD2 A Flow CD4 A Flow CD1a A Flow CD5 A Flow CD19 A Flow CD34 A Flow CD45 A Flow CD7 A Flow CD8 A Flow CD30 A Shelby+CD19+ A Lambda+CD19+ 8 7:38 AM [facility] PATHOLOGY LAB Disclaimer Test performed at [facility], [address] [place] [address], [address]. *The established laboratory minimum viability is 70%. [...] high complexity clinical testing. 8 7:38 AM FIGHTING VEHICLE INFANTRYMAN [facility] PATHOLOGY LAB Embedded Images 8 7:38 AM FIGHTING VEHICLE INFANTRYMAN [facility] PATHOLOGY LAB Pathology/Cytolo gy ENTIRE LYMPH NODE / Unknown 07/23/2018 12:37 PM FIGHTING VEHICLE INFANTRYMAN 07/23/2018 3:19 PM FIGHTING VEHICLE INFANTRYMAN Fernando Jean MD LAB - PATHOLOGY/CYTOLOGY ORDER BOYD Final Result [facility] PATHOLOGY LAB [address] [phone] documented in this encounter Visit Diagnoses Diagnosis Generalized enlarged lymph nodes Enlargement of lymph nodes documented in this encounter
--- OUTSIDE RECORDS SUMMARY | 2025-03-16 07:29 | XMS_ITS ---
Author Organization [facility] Address [address] [place], [place] [address] Care Team Providers Care Service Cashier Name Role Phone Missy Ray Primary Care Provider MICHELLE Reveles Unavailable [phone] CRISTOFER JUNIOR Unavailable [phone] REASON FOR VISIT *General care Medications Medication [...] 12/31/2024 Encounters Encounter Location Date Provider Diagnosis [address] [id number] 12/31/2024 CRISTOFER JUNIOR Tinea unguium B35.1 ; Pain in right foot M79.671 ; Pain in left foot M79.672 ; Atherosclerosis of [place] arteries of extremities with intermittent claudication, bilateral [...] foot (ICD-10 - M79.672) 12/31/2024 Atherosclerosis of [place] arteries of extremities with intermittent claudication, bilateral [...] debris and necrotic tissue removed Atherosclerosis of [place] ar teries of extremities with intermittent claudication, [...] sooner if problems develop. Provider Name:CRISTOFER KIMBALL, 05/13/2025 01:50:00 PM, [address] [place] [address], [phone], Progress Notes * YU GRAVESB:1945 (80 yo F)Acc No.[id number]:12/31/2024 Patient: Robles GRACIA PEREZ Provider: Lorena JUNIOR :1945 A ge:79 Y S ex:Female Date:12/31/2024 Address:[address] [facility] Pcp:Missy Ray Subjective: * Chief Complaints: * [...] seen by Dr. Ray was 11/2024., Initials [facility]. * ROS: G eneral / Constitutional: Patient denies w eakness. C ardiovascular: Patient denies c hest pain, history of [place], irregular heartbeat. M usculoskeletal: Patient complains of [...] - M79.672 4 . A therosclerosis of [place] arteries of extremities with intermittent claudication, bilateral legs - I70.213 5 . 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 L ocalized edema - R60.0 7 . P rimary osteoarthritis, left ankle and foot - M19.072 Plan: * Treatment: 2. A therosclerosis of [place] arteries of extremities with intermittent claudication, bilateral [...] Information: * Visit Code: * Procedure Codes: 28613 DEBRIDE NAIL, 6 OR MORE. Modifiers: Q8 * Electronic signature of ESME JUNIOR DPM on 03/16/2025 at 07:29 AM CDT Sign off status: Pending * Provider: Lorena JUNIOR Date: 0 12/31/2024 Generated for Aaliyah shah/Miguelina/Morgan on: 0 03/16/2025 [...]
--- OUTSIDE RECORDS SUMMARY | 2025-03-16 07:29 | XMS_ITS | Clinical Summary ---
Author Organization [facility] Address [address] [facility] [facility] [place] [address] Care Team Providers Care Ocular Pathologist Name Role Phone Unavailable Primary Care Provider Unavailabl e Source Comments [facility],non-owned Affiliates and Associated Physician Practices is amultiple site organization consisting of ambulatory clinics and hospital sitesin [place], [place], [place] and [place]. This disclosure is being madepursuant to the Care Everywhere program and may not contain all information available regarding this patient. 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
--- OUTSIDE RECORDS SUMMARY | 2025-03-16 07:29 | XMS_ITS | Encounter Summary ---
Author Organization [facility] Address [address] [facility] [place] [address] Care Team Providers Care Cordwood Cutter Name Role Phone Unavailable Primary Care Provider Unavailabl e Encounter Details Date Type Department Care Team (Late st Contact Info) Description 10/04/2021 Lab Requisition [facility] DermPath Lab [address] [place] [phone] Terrance Vyas MD [address] [place], [place] [id number] Social History Tobacco Use Types Packs/Day Years Used Date Smoking Tobacco: Never Assessed Comments Unknown Sex and Gender Information Value Date Recorded Sex Assigned at Not on file Legal Sex Female 11:13 AM MANAGER ASSET MANAGEMENT Gender Identity Not on file Sexual Orientation Not on file documented as of this encounter Plan of Treatment Not on file documented as of this encounter Procedures Procedure Name Priority Date/Time Associated Diagnosis Comments DERMATOPATHOLOGY Routine 10/03/2021 12:0 0 AM MANAGER ASSET MANAGEMENT documented in this encounter Results * DERMATOPATHOLOGY (10/03/2021 12:00 AM MANAGER ASSET MANAGEMENT) Case Report Dermatopathology Report Case: [id number] Authorizing Provider: Terrance Vyas MD Collected: 10/03/2021 12:00 AM Ordering Location: [facility] DermPath Lab Received: 10/04/2021 02:25 PM Pathologist: Den Vaughna MD Specimens: A) - Skin, left central cheek B) - Skin, left proximal ext forearm 2 4:20 PM MANAGER ASSET MANAGEMENT DERMATOPATHOLOGY LABORATORY Addendum 1 Specimen B: The lesion is not present at the sampled margin of the specimen. 2 4:20 PM MANAGER ASSET MANAGEMENT DERMATOPATHOLOGY LABORATORY Addendum electronically signed by Den Vaughan MD on 10/09/2021 at 1620 MANAGER ASSET MANAGEMENT Final Diagnosis Specimen A. SKIN, left central cheek: BASAL CELL CARCINOMA, INFILTRATIVE PATTERN (C44.319) Specimen B. 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 B: R/O BCC. 2 4:20 PM [facility] DERMATOPATHOLOGY LABORATORY Gross Description Specimen A: Received is one formalin filled container labeled with the patient's name and designated left central cheek. The specimen consists of a shave biopsy measuring 3y5o7ch. Jar 0. Specimen B: Received is one formalin filled container labeled with the patients name and designated left proximal ext forearm. The specimen consists of a shave removal measuring 13h2g6sz. Jar 0. 2 4:20 PM [facility] DERMATOPATHOLOGY LABORATORY Microscopic Description Specimen A. SKIN, [...] levels, and dyskeratotic cells. 2 4:20 PM [facility] DERMATOPATHOLOGY LABORATORY Disclaimer An external and internal positive and negative controls are appropriate for the histochemical, immunohistochemical and immunofluorescence stain(s) in this case (if any), except where stated explicitly. The performance characteristics of the stain(s) cited in this report were developed and its performance characteristic determined by the Dermatopathology Laboratory at [facility], directed by Dr. Rene Vaughan. These tests need not be, and therefore are not, approved by the [place] Food and Drug Administration. The tests are used for clinical purposes. Billing Codes Specimen Charges Stain Charges 15914 87452 1 1 2 4:20 PM [facility] DERMATOPATHOLOGY LABORATORY Embedded Images 2 4:20 PM MANAGER ASSET MANAGEMENT DERMATOPATHOLOGY LABORATORY Pathology/Cytology TISSUE SPECIMEN FROM SKIN / Unknown 10/03/2021 10/04/2021 2:25 PM MANAGER ASSET MANAGEMENT Miscellaneous samples (specimen) TISSUE SPECIMEN FROM SKIN / Unknown 10/03/2021 10/04/2021 2:25 PM MANAGER ASSET MANAGEMENT Terrance Vyas MD LAB - PATHOLOGY/CYTOLOGY ORD ERABLES Edited Result - Final DERMATOPATHOLOGY LABORATORY [facility] - Department of D[facility]atology [facility] [address] [place] [address], [address] [phone] documented in this encounter Visit Diagnoses Not on filedocumented in this encounter
[2025-03-16 07:44] LABS: Hematocrit 36.9 % (35.0-42.0); Hemoglobin 11.7 g/dL (11.7-13.8); Immature Granulocyte Percent A 0.3 % (0.0-0.0); Lymphocytes Absolute Auto 1.16 K/mm3 (1.10-4.50); Mean Corpuscular HGB Conc 31.7 g/dL (32-36); Mean Corpuscular Hemoglobin 29.1 pg (27.0-31.0); Mean Corpuscular Volume 91.8 fL (78.0-102.0); Nucleated Red Blood Cells Absolute Auto 0.00 K/mm3 (0.00-0.00); Nucleated Red Blood Cells Perc 0.0 % (0-0.0); Platelet Count Result 277 K/mm3 (150-420); Red Blood Count 4.02 M/mm3 (4.20-5.40); White Blood Count 9.4 K/mm3 (4.8-10.8)
[2025-03-16 07:46] LABS: Add Urine Microscopic? NO; Appearance Urine Clear (Clear); Glucose Urine UA Negative (Negative); Leukocyte Esterase Ur Negative (Negative); Nitrate Urine Negative (Negative); Specific Grav Ur <= 1.005 (1.010-1.020)
[2025-03-16 07:55] LABS: Hemoglobin A1C 5.4 % (<5.7)
[2025-03-16 08:10] LABS: Alanine Aminotransferase 17 U/L (6-35); Albumin Level 4.5 g/dL (3.5-5.1); Alkaline Phosphatase 65 U/L (38-126); Anion Gap 3 mmol/L (4-12); Aspartate Amino Transferase 29 U/L (14-36); Bilirubin,Total 0.7 mg/dL (0.2-1.3); Blood Urea Nitrogen 26 mg/dL (7-17); Calcium 10.3 mg/dL (8.4-10.2); Carbon Dioxide 32 mmol/L (22-30); Chloride 106 mmol/L (98-107); Cholesterol 218 mg/dL (0-200); Creatine Kinase 89 U/L (30-135); Estimated Glomerular Filt Rate > 60; Glucose 106 mg/dL (65-110); HDL Direct 58 mg/dL; Iron 60 ug/dL (37-170); Osmolality Calculated 296 mOsm/kg (285-295); Potassium 4.3 mmol/L (3.4-5.0); Sodium 141 mmol/L (137-145); Total Protein 6.8 g/dL (6.3-8.2); Triglycerides 148 mg/dL (<150)
[2025-03-16 08:29] LABS: Free T4 Free Thyroxine 1.24 ng/dL (0.78-2.19)
[2025-03-16 08:30] LABS: Free T3 3.52 pg/mL (2.18-3.98)
[2025-03-16 08:42] LABS: Thyroid Stimulating Hormone 0.626 uIU/mL (0.465-4.680)
[2025-03-16 08:46] LABS: Ferritin 568.00 ng/mL (11.1-264)
[2025-03-16 09:02] LABS: Vitamin B12 900.0 pg/mL (239-931)
== END 2025-03-16 07:24 | disposition home or self-care (01) ==
LOC: CHSLAB 07:26
PROVIDERS: PCP Internal Medicine; Visit Provider Internal Medicine
DX: N18.1 Chronic kidney disease, stage 1 (principal); E03.4 Atrophy of thyroid (acquired); D50.9 Iron deficiency anemia, unspecified; R73.01 Impaired fasting glucose; R53.82 Chronic fatigue, unspecified; E78.2 Mixed hyperlipidemia; M81.0 Age-related osteoporosis without current pathological fracture; I12.9 Hypertensive chronic kidney disease with stage 1 through stage 4 chronic kidney disease, or unspecified chronic kidney disease
CPT/HCPCS: 36415; 80053; 80061; 81003; 82306; 82550; 82607; 82728; 83036; 83540; 84439; 84443; 84481; 85025

== ENCOUNTER 2025-06-02 13:56 | Outpatient (CLI) | payer MEDICARE, SELFPAY ==
--- OUTSIDE RECORDS SUMMARY | 2024-08-26 22:50 | XMS_ITS ---
Author Organization [facility] Address [address] [place], [place] [id number] Care Team Providers Care Smudger Name Role Phone Missy Ray Primary Care Provider Unavailabl MICHELLE Russell Unavailable [phone] REASON FOR VISIT *General care Encounters Encounter Location Date Provider Diagnosis [address] [phone] 08/27/2024 MICHELLE ZAMBRANO Plan Of Treatment Next Appt Details Provider Name:CRISTOFER KIMBALL, 07/22/2025 01:30:00 PM, [address] [place] [address], [phone], Progress Notes * YU GRAVESB:1945 (80 yo F)Acc No.[id number]:08/27/2024 Patient: Robles PEREZ GRACIA Provider: Brigid Zambrano DPM :1945 A ge:79 Y S ex:Female Date:08/27/2024 Address: [address], [facility] Pcp:Missy Ray Subjective: * Chief Complaints: * 1 . *General care. * Medical History: Objective: * Vitals: Assessment: Plan: * Treatment: * Billing Information: * Visit Code: * Procedure Codes: * Electronic signature of MICHELLE ZAMBRANO DPM on 06/02/2025 at 06:00 PM CDT Sign off status: Pending * Provider: Brigid Zambrano DPM Date: 0 08/27/2024 Generated for Aaliyah shah/Shadi on: 1 06:00 PM CDT
--- OUTSIDE RECORDS SUMMARY | 2024-12-31 09:50 | XMS_ITS ---
Author Organization [facility] Address [address] [place], [place] [id number] Care Team Providers Care Radiosonde Operator Name Role Phone Missy Ray Primary Care Provider MICHELLE Reveles Unavailable [phone] CRISTOFER JUNIOR Unavailable [phone] REASON FOR VISIT *General care Medications Medication SIG (Take, Route, Frequency, Duration) Notes Start Date End Date Status Atorvastatin Calcium 10 MG TAKE 1 TABLET BY MOUTH EVERY DAY Oral; Duration: 90 Days Active Levothyroxine Sodium 88 MCG Oral; Duration: 90 Days Active Losartan Potassium 50 MG Oral; Duration: 90 Days Active Omeprazole 20 MG Oral; Duration: 90 Days Active Vital Signs Height 63.00 in 12/31/2024 Weight 186 lbs 12/31/2024 BMI 32.94 kg/m2 12/31/2024 Height-cm 160.02 cm 12/31/2024 Weight-kg 84.37 kg 12/31/2024 Encounters Encounter Location Date Provider Diagnosis [address] [id number] 12/31/2024 CRISTOFER JUNIOR Tinea unguium B35.1 ; Pain in right foot M79.671 ; Pain in left foot M79.672 ; Atherosclerosis of kaw arteries of extremities with intermittent claudication, bilateral [...] foot (ICD-10 - M79.672) 12/31/2024 Atherosclerosis of kaw arteries of extremities with intermittent claudication, bilateral [...] debris and necrotic tissue removed Atherosclerosis of kaw ar teries of extremities with intermittent claudication, [...] care, sooner if problems develop. Provider Name:CRISTOFER Howie KIMBALL, 07/22/2025 01:30:00 PM, [address] [place] [address], [id number], Progress Notes * YU GRAVESB:1945 (80 yo F)Acc No.[id number]:12/31/2024 Patient: Robles GRACIA PEREZ Provider: Lorena JUNIOR :1945 A ge:79 Y S ex:Female Date:12/31/2024 Address:[address] [facility] Pcp:Missy Ray Subjective: * Chief Complaints: * 1 . *General care. * HPI: H PI: General care P jeanne presents to the office for at risk foot care. Patient states that their nails are thickened, elongated and painful. Patient states that it is aggravated by shoe gear. Onset is gradual. Patient denies being diabetic., Patient denies taking blood thinners., Date last seen by Dr. Ray was 11/2024., Initials [facility]. * ROS: G eneral / Constitutional: Patient denies w eakness. C ardiovascular: Patient denies c hest pain, history of [place], irregular heartbeat. M usculoskeletal: Patient complains of h ammertoes. A rthritis / arthralgia a dmits. S kin: Patient complains of f ungal nails, , nail changes. ? N eurologic: Patient denies d izziness, gait abnormality, headache. * Medical History: * Social History: M igrated Social History: M igrated Social History: Alcohol intake : , History of tobacco use : , Smoking Status : Never used tobacco. * Medications: T aking Atorvastatin Calcium 10 MG Tablet TAKE 1 TABLET BY MOUTH EVERY DAY Oral , Taking Levothyroxine Sodium 88 MCG Tablet Oral , Taking Losartan Potassium 50 MG Tablet Oral , Taking Omeprazole 20 MG Capsule Delayed Release Oral , Medication List reviewed and reconciled with the [...] - M79.672 4 . A therosclerosis of kaw arteries of extremities with intermittent claudication, bilateral legs - I70.213 5 . 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 L ocalized edema - R60.0 7 . P rimary osteoarthritis, left ankle and foot - M19.072 Plan: * Treatment: 2. A therosclerosis of kaw arteries of extremities with intermittent claudication, bilateral [...] At-Risk Foot care, sooner if problems develop.) * Billing Information: * Visit Code: * Procedure Codes: 05441 DEBRIDE NAIL, 6 OR MORE. Modifiers: Q8 * Electronic signature of ESME JUNIOR DPM on 06/02/2025 at 06:00 PM CDT Sign off status: Pending * Provider: Lorena JUNIOR Date: 0 12/31/2024 Generated for Aaliyah shah/Miguelina/Morgan on: 06:00 PM CDT History and Physical Notes * HPI [...]
--- OUTSIDE RECORDS SUMMARY | 2025-03-11 09:10 | XMS_ITS ---
Author Organization [facility] Address [address] [place], [place] [address] Care Team Providers Care Senior Process Analyst Name Role Phone Missy Ray Primary Care Provider MICHELLE Reveles Unavailable [phone] CRISTOFER JUNIOR Unavailable [phone] REASON FOR VISIT *General care Medications Medication SIG (Take, Route, Frequency, Duration) Notes Start Date End Date Status Omeprazole 20 MG Oral; Duration: 90 Days Active Atorvastatin Calcium 10 MG TAKE 1 TABLET BY MOUTH EVERY DAY Oral; Duration: 90 Days Active Losartan Potassium 50 MG Oral; Duration: 90 Days Active Levothyroxine Sodium 88 MCG Oral; Duration: 90 Days Active Encounters Encounter Location Date Provider Diagnosis [address] [id number] 03/11/2025 CRISTOFER JUNIOR Tinea unguium B35.1 ; Pain in right foot M79.671 ; Pain in left foot M79.672 ; Atherosclerosis of [place] arteries of extremities with intermittent claudication, bilateral [...] foot (ICD-10 - M79.672) 03/11/2025 Atherosclerosis of [place] arteries of extremities with intermittent claudication, bilateral [...] debris and necrotic tissue removed Atherosclerosis of [place] ar teries of extremities with intermittent claudication, [...] if problems develop. Provider Name:CRISTOFER Denise CATA KIMBALL, 07/22/2025 01:30:00 PM, [address] [place] [address], [id number], Progress Notes * OSORIO GRAVESADOB:1945 (80 yo F)Acc No.[id number]:03/11/2025 Patient: Robles GRACIA PEREZ Provider: Lorena JUNIOR :1945 A ge:80 Y S ex:Female Date:03/11/2025 Address: [facility] Pcp:Missy Ray Subjective: * Chief Complaints: * 1 . *General care. * ROS: G eneral / Constitutional: Patient denies w eakness. C ardiovascular: Patient denies c hest pain, history of [place], irregular heartbeat. M usculoskeletal: Patient complains of [...] Release Oral Objective: * Vitals: * Examination: C onstitutional: [...] - M79.672 4 . A therosclerosis of [place] arteries of extremities with intermittent claudication, bilateral legs - I70.213 5 . 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 L ocalized edema - R60.0 7 . P rimary osteoarthritis, left ankle and foot - M19.072 Plan: * Treatment: 2. A therosclerosis of [place] arteries of extremities with intermittent claudication, bilateral [...] LESIONS, 2 TO 4, Modifiers: Q8 , 01797 DEBRIDE NAIL, 6 OR MORE, Modifiers: 59 , Q8 * Follow Up: 1 0 - 12 weeks (Reason: At-Risk Foot care, sooner if problems develop.) * Billing Information: * Visit Code: * Procedure Codes: 10753 TRIM SKIN LESIONS, 2 TO 4. Modifiers: Q8 18903 DEBRIDE NAIL, 6 OR MORE. Modifiers: 59, Q8 * Electronic signature of ESME JUNIOR DPM on 06/02/2025 at 06:00 PM CDT Sign off status: Pending * Provider: Lorena JUNIOR Date: 0 03/11/2025 Generated for Aaliyah shah/Miguelina/Morgan on: 06:00 PM CDT History and Physical Notes * Examination Category [...]
--- OUTSIDE RECORDS SUMMARY | 2025-05-13 08:50 | XMS_ITS ---
Author Organization [facility] Address [address] [place], [place] [id number] Care Team Providers Care Pickle Cutter Name Role Phone Missy Ray Primary Care Provider MICHELLE Reveles Unavailable [phone] CRISTOFER JUNIOR Unavailable [phone] Allergies No Known Allergies REASON FOR VISIT *General care Medications Medication SIG (Take, Route, Frequency, Duration) Notes Start Date End Date Status Levothyroxine Sodium 88 MCG Oral; Duration: 90 Days Active Losartan Potassium 50 MG Oral; Duration: 90 Days Active Omeprazole 20 MG Oral; Duration: 90 Days Active Atorvastatin Calcium 10 MG TAKE 1 TABLET BY MOUTH EVERY DAY Oral; Duration: 90 Days Active Vital Signs Height 63.00 in 05/13/2025 Weight 186 lbs 05/13/2025 BMI 32.94 kg/m2 05/13/2025 Height-cm 160.02 cm 05/13/2025 Weight-kg 84.37 kg 05/13/2025 Encounters Encounter Location Date Provider Diagnosis [address] [phone] 05/13/2025 CRISTOFER JUNIOR Tinea unguium B35.1 ; Pain in right foot M79.671 ; Pain in left foot M79.672 ; Atherosclerosis of [place] arteries of extremities with intermittent claudication, bilateral legs I70.213 ; Acquired keratosis [keratoderma] palmaris et plantaris L85.1 ; Localized edema R60.0 and Primary osteoarthritis, left ankle and foot M19.072 Assessments Encounter Date Diagnosis (ICD Code) Assessment Notes Treatment Notes Treatment Clinical Notes Section Notes 05/13/2025 Tinea unguium (ICD-10 - B35.1) Nails 1-5 Bilateral were debrided extensively with nail nippers and emery board, reducing length and girth to pink healthy tissue with any subungual debris and necrotic tissue removed 05/13/2025 Pain in right foot (ICD-10 - M79.671) 05/13/2025 Pain in left foot (ICD-10 - M79.672) 05/13/2025 Atherosclerosis of [place] arteries of extremities with intermittent claudication, bilateral legs (ICD-10 - I70.213) Patient educated on risks and aggravating factors of PVD, including conservative treatment options such as a diet and exercise regimen to aid in slowing progression of vascular disease. Check and protect LE bilateral daily. Call if any changes or concerns. 05/13/2025 Acquired keratosis [keratoderma] palmaris et plantaris (ICD-10 - L85.1) A total of 2 corns or calluses, as described in the note above, were cut and pared utilizing a #15 blade 05/13/2025 Localized edema (ICD-10 - R60.0) Edema Recommendations: Advised patient on edema treatment recommendations. Recommendation for periodic elevation of feet and lower legs through the day. Recommend support compression hose. Recommend dietary restrictions salt intake. Followup with family physician for potential diuretic management if needed. 05/13/2025 Primary osteoarthritis, left ankle and foot (ICD-10 [...] debris and necrotic tissue removed Atherosclerosis of [place] ar teries of extremities with intermittent claudication, [...] develop. Provider Name:CRISTOFER KIMBALL, 07/22/2025 01:30:00 PM, [address] [place] [address], [phone], Progress Notes * YU GRAVESB:1945 (80 yo F)Acc No.[id number]:05/13/2025 Patient: Robles PEREZ GRACIA Provider: Lorena JUNIOR :1945 A ge:80 Y S ex:Female Date:05/13/2025 Address: [facility] Pcp:Missy Ray Subjective: * Chief Complaints: [...] Date last seen by Dr. Ray was 2024., Initials ab. * ROS: G eneral / Constitutional: Patient denies w eakness. C ardiovascular: Patient denies c hest pain, history of ME, irregular heartbeat. M usculoskeletal: Patient complains of h ammertoes. A rthritis / arthralgia a dmits. S kin: Patient complains of f ungal nails, , nail changes. ? N eurologic: Patient denies d izziness, gait abnormality, headache. * Medical History: N o Reported Medical History.Medical History Verified. * Surgical History: D enies Past Surgical History. * Hospitalization/Major Diagno stic Procedure: D enies Past Hospitalization. * Family History: N on-Contributory. * Social History: M igrated Social History: [...] reconciled with the patient * Allergies: N .K.D.A. Objective: * Vitals: S hoe Size: 8, Wt: 186 lbs, Wt-k.37 kg, Ht: 63.00 in, [...] - M79.672 4 . A therosclerosis of [place] arteries of extremities with intermittent claudication, bilateral legs - I70.213 5 . 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 L ocalized edema - R60.0 7 . P rimary osteoarthritis, left ankle and foot - M19.072 Plan: * Treatment: 2. A therosclerosis of [place] arteries of extremities with intermittent claudication, bilateral [...] wide toebox shoes were also discussed.? * Preventive Medicine: Screenings: F all risk screening F all Risk Assessment: N o falls in the past year. * Follow Up: 1 0 - 12 weeks (Reason: At-Risk Foot care, sooner if problems develop.) * Billing Information: * Visit Code: * Procedure Codes: * Electronic signature of ESME JUNIOR DPM on 06/02/2025 at 05:59 PM CDT Sign off status: Pending * Provider: Lorena JUNIOR Date: Generated for Aaliyah shah/Miguelina/Morgan on: 05:59 PM CDT History and Physical Notes * [...] Date last seen by Dr. Ray was 2024., Initials ab Examination Category Sub-Category Detail Notes Category Not [...]
--- NOTE | ~2025-06-02 | CT_ITS ---
Exam: CT abdomen and pelvis with contrast Clinical History: [Left lower quadrant pain. Diarrhea for 3 days. ] Comparison: [ 10/19/2024] Technique: Multiple axial CT images of the abdomen and pelvis were obtained with IV contrast. Sagittal and coronal reformatted images were obtained. FINDINGS: Lung bases: [Small opacities in the lower lungs. ] Liver: [ No mass.] [ Minimal intrahepatic biliary duct dilatation presumably due to a previous cholestatic..] Gallbladder: Gallbladder is absent. Common bile duct: Prominent common duct similar to the prior study presumably due to a previous cholecystectomy. No stones identified in the common duct. Spleen: [ Within normal limits.] Pancreas: [ No mass. No pancreatic fluid collection.] Adrenals: [ No masses.] Kidneys: [ No masses. No hydronephrosis.][ ] 2 mm nonobstructing right renal stone. There is a too small to characterize low-attenuation lesion in the left kidney. Lymph nodes: [ No adenopathy in the abdomen or pelvis.] Stomach, small bowel and colon: [ No bowel wall thickening or obstruction.] Diverticulosis without convincing CT evidence for acute diverticulitis at this time. Thickening of the [place] of the rectum. Differential includes incomplete rectal wall distention, proctitis or mass. Peritoneum cavity: [ No mesenteric fat stranding or fluid.] Bladder: [ Unremarkable.] Osseous structures: [ No acute fracture lesion.] [ Multilevel degenerative change in the visualized spine.] Grade 1 anterolisthesis of L4 on L5 and L5 on S1. Abdominal aorta: [ No aneurysm.] Additional findings: [ None of significance.] IMPRESSION: 1. Thickening of the [place] of the rectum. Differential includes incomplete rectal wall distention, proctitis or mass. 2. Diverticulosis without convincing CT evidence for acute diverticulitis at this time. Reviewed, dictated and finalized at location Q. IMPRESSION: 1. Thickening of the [place] of the rectum. Differential includes incomplete rect al wall distention, proctitis or mass. 2. Diverticulosis without convincing CT evidence for acute diverticulitis at th is time.
[2025-06-02 14:13] LABS: Hematocrit 36.6 % (35.0-42.0); Hemoglobin 11.8 g/dL (11.7-13.8); Mean Corpuscular HGB Conc 32.2 g/dL (32-36); Mean Corpuscular Hemoglobin 29.3 pg (27.0-31.0); Mean Corpuscular Volume 90.8 fL (78.0-102.0); Platelet Count Result 274 K/mm3 (150-420); Red Blood Count 4.03 M/mm3 (4.20-5.40); White Blood Count 8.5 K/mm3 (4.8-10.8)
[2025-06-02 14:32] LABS: Alanine Aminotransferase 18 U/L (6-35); Albumin Level 4.9 g/dL (3.5-5.1); Alkaline Phosphatase 61 U/L (38-126); Anion Gap 8 mmol/L (4-12); Aspartate Amino Transferase 32 U/L (14-36); Bilirubin,Total 0.7 mg/dL (0.2-1.3); Blood Urea Nitrogen 14 mg/dL (7-17); CRP < 0.5 mg/dL (<1.0); Calcium 9.8 mg/dL (8.4-10.2); Carbon Dioxide 32 mmol/L (22-30); Chloride 101 mmol/L (98-107); Estimated Glomerular Filt Rate 59; Glucose 99 mg/dL (65-110); Osmolality Calculated 292 mOsm/kg (285-295); Potassium 4.5 mmol/L (3.4-5.0); Sodium 141 mmol/L (137-145); Total Protein 9.3 g/dL (6.3-8.2)
[2025-06-02 14:46] LABS: Free T4 Free Thyroxine 1.29 ng/dL (0.78-2.19)
[2025-06-02 14:56] LABS: Free T3 3.02 pg/mL (2.18-3.98)
[2025-06-02 15:00] LABS: Thyroid Stimulating Hormone 0.831 uIU/mL (0.465-4.680)
[2025-06-02 15:20] LABS: Vitamin B12 956.0 pg/mL (239-931)
--- OUTSIDE RECORDS SUMMARY | 2025-06-02 17:59 | XMS_ITS | Clinical Summary ---
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 Active losartan (COZAAR) 25 mg tablet Take [...] CDT Respiratory Rate 18 08/01/2018 10:28 AM APPLICATIONS ENGINEER MANUFACTURING Oxygen Saturation 93% 11/12/2018 12:36 PM CDT [...] Maintenance Insurance MEDICARE PART A AND B [facility] DORINA FRANCO [id number] Care Teams Sheep And Wheat Farmer Relationship Specialty Start Date End Date Rossy Ray MD [address] [place] [address] PCP - General Internal Medicine 06/13/18
--- OUTSIDE RECORDS SUMMARY | 2025-06-02 17:59 | XMS_ITS | Encounter Summary ---
Author Organization [facility] Address [address] [facility] [place] [address] Care Team Providers Care Packer Insulation Name Role Phone Unavailable Primary Care Provider Unavailabl e Encounter Details Date Type Department Care Team (Late st Contact Info) Description 07/23/2018 Lab Requisition [facility] Care Pathology Lab [address] [place] [address] Fernando Jean MD [address] [place] [address] Generalized enlarged lymph nodes Social History Tobacco Use Types Packs/Day Years Used Date Smoking Tobacco: Never Assessed Comments Unknown Sex and Gender Information Value Date Recorded Sex Assigned at Not on file Legal Sex Female 11:13 AM ELECTRICITY TRADER Gender Identity Not on file Sexual Orientation Not on file documented as of this encounter Plan of Treatment Not on file documented as of this encounter Procedures Procedure Name Priority Date/Time Associated Diagnosis Comments FLOW CYTOMETRY TISSUE PANEL Routine 07/23/2018 12:37 PM ELECTRICITY TRADER Generalized enlarged lymph nodes documented in this encounter Results * FLOW CYTOMETRY TISSUE PANEL (07/23/2018 12:37 PM ELECTRICITY TRADER) Case Report Flow Cytometry Case: [id number] Authorizing Provider: Fernando Jean MD Collected: 07/23/2018 12:37 PM Pathologist: Micheline Pineda MD Received: 07/23/2018 03:19 PM Specimen: Lymph Node 8 7:38 AM [facility] Final Diagnosis Lymph node, left inguinal, flow cytometric immunophenotypic analysis: - Elevated CD4:CD8 ratio (12:1). - See interpretation. 8 7:38 AM [facility] at [address] [facility] Flow Cytometry Interpretation The left inguinal lymph [...] the flow cytometry specimen is reviewed for vendor quality supervisor purposes. The left inguinal lymph node shows [...] HOSPITAL PATHOLOGY LAB Client Specimen ID # [id number] 8 7:38 AM [facility] Number of markers 16 were performed. A Flow CD3 A Flow CD10 A Flow CD20 A Flow CD23 A Flow CD2 A Flow CD4 A Flow CD1a A Flow CD5 A Flow CD19 A Flow CD34 A Flow CD45 A Flow CD7 A Flow CD8 A Flow CD30 A [place]+CD19+ A Lambda+CD19+ 8 7:38 AM [facility] Disclaimer Test performed at [facility], [address] [place] [address], [id number]. *The established laboratory minimum viability is 70%. [...] high complexity clinical testing. 8 7:38 AM ELECTRICITY TRADER [facility] PATHOLOGY LAB Embedded Images 8 7:38 AM ELECTRICITY TRADER [facility] PATHOLOGY LAB Pathology/Cytolo gy ENTIRE LYMPH NODE / Unknown 07/23/2018 12:37 PM ELECTRICITY TRADER 07/23/2018 3:19 PM ELECTRICITY TRADER Fernando Jean MD LAB - PATHOLOGY/CYTOLOGY ORDER BOYD Final Result [facility] PATHOLOGY LAB [address] [phone] documented in this encounter Visit Diagnoses Diagnosis Generalized enlarged lymph nodes Enlargement of lymph nodes documented in this encounter
--- OUTSIDE RECORDS SUMMARY | 2025-06-02 17:59 | XMS_ITS | Encounter Summary ---
Author Organization [facility] Address [address] [facility] [place] [address] Care Team Providers Care Photo Checker And Assembler Name Role Phone Unavailable Primary Care Provider Unavailabl e Encounter Details Date Type Department Care Team (Late st Contact Info) Description 03/21/2022 Lab Requisition [facility] DermPath Lab [address] [place] [phone] Terrance Vyas MD [address] [place] [address] Social History Tobacco Use Types Packs/Day Years Used Date Smoking Tobacco: Never Assessed Comments Unknown Sex and Gender Information Value Date Recorded Sex Assigned at Not on file Legal Sex Female 11:13 AM SIDE STITCHER Gender Identity Not on file Sexual Orientation Not on file documented as of this encounter Plan of Treatment Not on file documented as of this encounter Procedures Procedure Name Priority Date/Time Associated Diagnosis Comments DERMATOPATHOLOGY Routine 03/20/2022 3:33 AM CDT documented in this encounter Results * DERMATOPATHOLOGY (03/20/2022 3:33 AM CDT) Case Report Dermatopathology Report Case: [id number] Authorizing Provider: Terrance Vyas MD Collected: 03/20/2022 03:33 AM Ordering Location: [facility] DermPath Lab Received: 03/21/2022 11:09 AM [...] specimen consists of a shave biopsy measuring 2m8y1cx. Jar 0. 2 3:59 PM CDT DERMATOPATHOLOGY [...] by the Dermatopathology Laboratory at [facility], directed by Dr. Rene Vaughan. These tests need not be, and therefore are not, approved by the [place] Food and Drug Administration. The tests are used for clinical purposes. Billing Codes Specimen Charges Stain Charges 16772 1 2 3:59 PM CDT DERMATOPATHOLOGY LABORATORY Embedded Images 2 3:59 PM CDT DERMATOPATHOLOGY LABORATORY Pathology/Cytolo gy TISSUE SPECIMEN FROM SKIN / Unknown 03/20/2022 3:33 AM CDT 03/21/2022 11:09 AM CDT us Terrance Vyas MD LAB - PATHOLOGY/CYTOLOGY ORD ERABLES Final Result DERMATOPATHOLOGY LABORATORY [facility] - Department of Dermatology [address], [address] [place] [address], [facility] [phone] documented in this encounter Visit Diagnoses Not on filedocumented in this encounter
--- OUTSIDE RECORDS SUMMARY | 2025-06-02 17:59 | XMS_ITS | Encounter Summary ---
Author Organization [facility] Address [address] [facility] [place] [address] Care Team Providers Care Order Desk Caller Name Role Phone Unavailable Primary Care Provider Unavailabl e Encounter Details Date Type Department Care Team (Late st Contact Info) Description 10/04/2021 Lab Requisition [facility] DermPath Lab [address] [place] [phone] Terrance Vyas MD [address] [place], [place] [phone] Social History Tobacco Use Types Packs/Day Years Used Date Smoking Tobacco: Never Assessed Comments Unknown Sex and Gender Information Value Date Recorded Sex Assigned at Not on file Legal Sex Female 11:13 AM PICK UP Gender Identity Not on file Sexual Orientation Not on file documented as of this encounter Plan of Treatment Not on file documented as of this encounter Procedures Procedure Name Priority Date/Time Associated Diagnosis Comments DERMATOPATHOLOGY Routine 10/03/2021 12:0 0 AM PICK UP documented in this encounter Results * DERMATOPATHOLOGY (10/03/2021 12:00 AM PICK UP) Case Report Dermatopathology Report Case: [id number] Authorizing Provider: Terrance Vyas MD Collected: 10/03/2021 12:00 AM Ordering Location: [facility] DermPath Lab Received: 10/04/2021 02:25 PM Pathologist: Den Vaughan MD Specimens: A) - Skin, left central cheek B) - Skin, left proximal ext forearm 2 4:20 PM [facility] DERMATOPATHOLOGY LABORATORY Addendum 1 Specimen B: The lesion is not present at the sampled margin of the specimen. 2 4:20 PM [facility] DERMATOPATH[facility]ORATORY Addendum electronically signed by Den Vaughan MD on 10/09/2021 at 1620 PICK UP Final Diagnosis Specimen A. SKIN, left central cheek: BASAL CELL CARCINOMA, INFILTRATIVE PATTERN (C44.319) Specimen B. 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 B: R/O BCC. 2 4:20 PM [facility] DERMATOPATHOLOGY LABORATORY Gross Description Specimen A: Received is one formalin filled container labeled with the patient's name and designated left central cheek. The specimen consists of a shave biopsy measuring 2a6e3js. Jar 0. Specimen B: Received is one formalin filled container labeled with the patients name and designated left proximal ext forearm. The specimen consists of a shave removal measuring 22l0g5lc. Jar 0. 2 4:20 PM [facility] DERMATOPATHOLOGY LABORATORY Microscopic Description Specimen A. [...] levels, and dyskeratotic cells. 2 4:20 PM [facility] DERMATOPATHOLOGY LABORATORY Disclaimer An external and internal positive and negative controls are appropriate for the histochemical, immunohistochemical and immunofluorescence stain(s) in this case (if any), except where stated explicitly. The performance characteristics of the stain(s) cited in this report were developed and its performance characteristic determined by the Dermatopathology Laboratory at [facility], directed by Dr. Rene Vaughan. These tests need not be, and therefore are not, approved by the [place] Food and Drug Administration. The tests are used for clinical purposes. Billing Codes Specimen Charges Stain Charges 06140 64173 1 1 2 4:20 PM [facility] DERMATOPATHOLOGY LABORATORY Embedded Images 2 4:20 PM [facility] DERMATOPATHOLOGY LABORATORY Pathology/Cytology TISSUE SPECIMEN FROM SKIN / Unknown 10/03/2021 10/04/2021 2:25 PM PICK UP Miscellaneous samples (specimen) TISSUE SPECIMEN FROM SKIN / Unknown 10/03/2021 10/04/2021 2:25 PM PICK UP Terrance Vyas MD LAB - PATHOLOGY/CYTOLOGY ORD ERABLES Edited Result - Final DERMATOPATHOLOGY LABORATORY [facility] - Department of [facility] [address] [place] [address], [address] [phone] documented in this encounter Visit Diagnoses Not on filedocumented in this encounter
--- OUTSIDE RECORDS SUMMARY | 2025-06-02 18:00 | XMS_ITS | Patient Health Record ---
Author Organization [facility] Address [address] [place], [place] [id number] Care Team Providers Care Housekeeper Child Care Name Role Phone Missy Ray Primary Care Provider UnavailMICHELLE Abebe Unavailable [phone] ROBETR DIAS Unavailable [phone] CRISTOFER JUNIOR Unavailable [phone] Allergies No Known Allergies Reason For Referral [...] EVERY DAY Oral; Duration: 90 Days Active Immunizations Vaccine Route Administration Date Status Comme nts Influenza, high dose seasonal Unknown 05/24/2023 Admini stered Vital Signs Height-cm 160.02 cm 05/13/2025 Weight-kg 84.37 kg 05/13/2025 Height 63.00 in 05/13/2025 Weight 186 lbs 05/13/2025 BMI 32.94 kg/m2 05/13/2025 Encounters Encounter Location Date Provider Diagnosis [address] [id number] 12/31/2024 CRISTOFER JUNIOR Tinea unguium B35.1 ; Pain in right foot M79.671 ; Pain in left foot M79.672 ; Atherosclerosis of [place] arteries of extremities with intermittent claudication, bilateral legs I70.213 ; Acquired keratosis [keratoderma] palmaris et plantaris L85.1 ; Localized edema R60.0 and Primary osteoarthritis, left ankle and foot M19.072 [facility] [address] [place], [place] [id number] 03/11/2025 CRISTOFER JUNIOR Tinea unguium B35.1 ; Pain in right foot M79.671 ; Pain in left foot M79.672 ; Atherosclerosis of [place] arteries of extremities with intermittent claudication, bilateral legs I70.213 ; Acquired keratosis [keratoderma] palmaris et plantaris L85.1 ; Localized edema R60.0 and Primary osteoarthritis, left ankle and foot M19.072 [facility] [address] [place], [place] [id number] 05/13/2025 CRISTOFER JUNIOR Tinea unguium B35.1 ; Pain in right foot M79.671 ; Pain in left foot M79.672 ; Atherosclerosis of [place] arteries of extremities with intermittent claudication, bilateral legs I70.213 ; Acquired keratosis [keratoderma] palmaris et plantaris L85.1 ; Localized edema R60.0 and Primary osteoarthritis, left ankle and foot M19.072 [facility] [address] [place], [place] [id number] 06/25/2024 ROBERT DIAS Other hammer toe(s) (acquired), right foot M20.41 ; Tinea unguium B35.1 ; Other hammer toe(s) (acquired), left foot M20.42 ; Pain in right toe(s) M79.674 ; Pain in left toe(s) M79.675 ; Unspecified atherosclerosis of [place] arteries of extremities, bilateral legs I70.203 and Acquired keratosis [keratoderma] palmaris et plantaris L85.1 [facility] [address] [place], [place] [id number] 08/27/2024 MICHELLE SNOOK Tinea unguium B35.1 ; Pain in right toe(s) M79.674 ; Pain in left toe(s) M79.675 ; Atherosclerosis of [place] arteries of extremities with intermittent claudication, bilateral legs I70.213 and Acquired keratoderma L85.[address] [id number] 10/29/2024 MICHELLE SNOOK Tinea unguium B35.1 ; Pain in right foot M79.671 ; Pain in left foot M79.672 ; Atherosclerosis of [place] arteries of extremities with intermittent claudication, bilateral [...] subungual debris and necrotic tissue removed 05/13/2025 Tinea unguium (ICD-10 - B35.1) Nails 1-5 Bilateral were debrided extensively with nail nippers and emery board, reducing length and girth to pink healthy tissue with any subungual debris and necrotic tissue removed 03/11/2025 Pain in right foot (ICD-10 - M79.671) 05/13/2025 Pain in right foot (ICD-10 - M79.671) 05/13/2025 Pain in left foot (ICD-10 - M79.672) 03/11/2025 Pain in left foot (ICD-10 - M79.672) 12/31/2024 Pain in left foot (ICD-10 - M79.672) 10/29/2024 Pain in left foot (ICD-10 - M79.672) 08/27/2024 Pain in left toe(s) (ICD-10 - M79.675) 06/25/2024 Other hammer toe(s) (acquired), left foot (ICD-10 - M20.42) 06/25/2024 Pain in right toe(s) (ICD-10 - M79.674) 08/27/2024 Atherosclerosis of [place] arteries of extremities with intermittent claudication, bilateral legs (ICD-10 - I70.213) 10/29/2024 Atherosclerosis of [place] arteries of extremities with intermittent claudication, bilateral legs (ICD-10 - I70.213) 12/31/2024 Atherosclerosis of [place] arteries of extremities with intermittent claudication, bilateral legs (ICD-10 - I70.213) Check and protect LE bilateral daily. Call if any changes or concerns. 03/11/2025 Atherosclerosis of [place] arteries of extremities with intermittent claudication, bilateral legs (ICD-10 - I70.213) Patient educated on risks and aggravating factors of PVD, including conservative treatment options such as a diet and exercise regimen to aid in slowing progression of vascular disease. Check and protect LE bilateral daily. Call if any changes or concerns. 05/13/2025 Atherosclerosis of [place] arteries of extremities with intermittent claudication, bilateral [...] and pared utilizing a #15 blade 03/11/2025 Acquired keratosis [keratoderma] palmaris et plantaris [...] (ICD-10 - M79.675) 06/25/2024 Unspecified atherosclerosis of [place] arteries of extremities, bilateral legs (ICD-10 - [...] for potential diuretic management if needed. 05/13/2025 Localized edema (ICD-10 - R60.0) Edema [...] Supportive wide toebox shoes were also discussed. 03/11/2025 Primary osteoarthritis, left ankle and foot [...] shoes were also discussed. Plan Of Treatment Next Appt Details Provider Name:CRISTOFER KIMBALL, 07/22/2025 01:30:00 PM, [address] [place] [address], [phone], Insurance Providers Payer Name Payer Address Payer Phone Subscriber Number Group Number Insured Name Patient Relationship to Insured Coverage Start Date Coverage End Date Medicare Part B [facility] [address] [place] [phone] [id number] GRACIA GRAVES Self - patient is the insured [address] [address] [id number] GRACIA GRAVES Self - patient is the insured
--- OUTSIDE RECORDS SUMMARY | 2025-06-02 18:01 | XMS_ITS | Clinical Summary ---
Author Organization [facility] Address [address] [facility] [place] [address] Care Team Providers Care Lead Quality Technician Name Role Phone Unavailable Primary Care Provider Unavailabl e Source Comments [facility],non-owned Affiliates and Associated Physician Practices is amultiple site organization consisting of ambulatory clinics and hospital sitesin [place], [place], [place] and [place]. This disclosure is being madepursuant to the Care Everywhere program and may not contain all information available regarding this patient. Last updated 18.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
--- OUTSIDE RECORDS SUMMARY | 2025-06-02 18:01 | XMS_ITS | Clinical Summary ---
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 OFF WORKER Gender Identity Not on file Sexual Orientation Not on file Obstetrics History Last Filed Vital Signs Vital Sign Reading Time Taken Comments Blood Pressure 128/70 08/15/2020 2:16 PM CUT OFF WORKER Pulse 74 08/15/2020 2:16 PM CUT OFF WORKER Temperature - - Respiratory Rate - - Oxygen Saturation 97% 08/15/2020 2:16 PM CUT OFF WORKER Inhaled Oxygen Concentration - - Weight 90 kg (198 lb 6.4 oz) 08/15/2020 2:16 PM CUT OFF WORKER Height 160 cm (5' 3) 08/15/2020 2:16 PM CUT OFF WORKER Body Mass Index 35.14 08/15/2020 2:16 PM CUT OFF WORKER Plan of Treatment Not on file Insurance MEDICARE [facility] MEDICARE SUPPLEMENT INSURANCE Care Teams Logistics Loss Prevention Manager Relationship Specialty Start Date End Date Rossy Ray MD [address] [place], [place] [id number] PCP - General 01/08/13
== END 2025-06-02 13:57 | disposition home or self-care (01) ==
LOC: CHSLAB 13:58
PROVIDERS: PCP Internal Medicine; Visit Provider Internal Medicine
DX: R10.32 Left lower quadrant pain (principal); R19.7 Diarrhea, unspecified; K57.90 Diverticulosis of intestine, part unspecified, without perforation or abscess without bleeding
CPT/HCPCS: 36415; 74177; 80053; 82607; 83605; 84439; 84443; 84481; 85027; 85652; 86140; Q9967

== ENCOUNTER 2025-06-16 00:38 | Day surgery (SDC) | payer MEDICARE, SELFPAY ==
[2025-06-07 10:33] VITALS: BMI 31.8
[2025-06-16 06:39] VITALS: BP 167/68; PULSE 71; RESP 18; TEMP 36.1; O2SAT 99; BMI 30.9
[2025-06-16] MEDS: LACTATED RINGERS 1,000 ML 150 ML IV CONT (06:48)
--- NOTE | 2025-06-16 06:51 | WPDANESEPPF ---
Anes - Initial Pre Proc Eval Procedure: Operation Date: 06/16/25 08:00 Proposed Procedures p Diagnostic Colonoscopy - Drake Heller DO Date/Time: 06/16/25 06:51 Surgeon: Drake Heller DO Pre Op Diagnosis: Left lower quadrant pain, diarrhea, Abnormal CT Patient Data Age: 80 Gender: F Height: 1.63 m Weight: 81.9 kg Last Vital Signs Temp 36.1 C L 06/16/25 06:39 Pulse 71 06/16/25 06:39 Resp 18 06/16/25 06:39 BP 167/68 H 06/16/25 06:39 Pulse Ox 99 06/16/25 06:39 O2 Del Method Room Air 06/16/25 06:39 Allergies Allergy/AdvReac Type Severity Reaction Status Date / Time No Known Allergies Allergy Mild Verified 05/10/22 06:31 Home Medications ?Medication ?Instructions ?Recorded ?Confirmed ?Type acetaminophen 500 mg tablet 1,000 mg PO Q4-5H PRN Pain 10/15/19 06/16/25 History (Acetaminophen Extra Strength) cetirizine 10 mg tablet (Zyrtec) 10 mg PO DAILY 10/15/19 06/16/25 History cholecalciferol (vitamin D3) 50 2,000 unit PO DAILY 10/15/19 06/16/25 History mcg (2,000 unit) chewable tablet levothyroxine 88 mcg tablet 88 mcg PO DAILY 10/15/19 06/16/25 History losartan 50 mg tablet 100 mg PO DAILY 10/15/19 06/16/25 History omeprazole 20 mg tablet,delayed 20 mg PO DAILY 10/15/19 06/16/25 History release Lactobacillus acidophilus and 1 cap PO DAILY 06/07/25 06/16/25 History rhamnosus 15 billion cell capsule (Florajen Women) atorvastatin 10 mg tablet (Lipitor) 10 mg PO DAILY 06/07/25 06/16/25 History Patient hx anesthesia problems: none Family hx anesthesia problems: none Results Review: All pre-operative results and documents have been reviewed as part of the pre-operative evaluation. [facility] Past Medical History Medical History (Updated 05/10/22 @ 07:41 by Domenico LloydMD) Obese AV (iron deficiency anemia) Generalized abdominal pain Diarrhea Brain tumor (benign) Hypothyroidism Hypercholesteremia Hypertension Surgical History Surgical History H/O: knee surgery History of cholecystectomy H/O: hysterectomy Family History Family History Other Cerebrovascular accident Hypertension Social History Social History Smoking status: Never smoker Alcohol intake: current Drinks per week: 1 Substance use: never Substance use type: does not use Living arrangements: with family Gender identity (if verbalized by the patient): Female Spiritual care concerns: No Anes - Eval Final PreProcedure Day of Procedure 06/16/25 06:51 Patient weight: obese Heart: regular rate and rhythm Lungs: clear to auscultation Airway: Mallampati scale class II Neurological: alert and oriented Last oral intake: >/= 8 hours ASA classification: III Emergent: no Anesthetic plan: proceed Anesthesia type and monitoring: general GIVS and standard monitoring Results Review: All pre-operative results and documents have been reviewed as part of the pre-operative evaluation. Informed Consent: The patient's anesthetic plan and its attendant risks and benefits were discussed with the patient/family/POA. Questions were solicited and answers provided to the satisfaction of the patient/family/POA.
--- NOTE | 2025-06-16 08:01 | PM.IMHP ---
H&P: HPI History of Present Illness Date/Time: 06/16/25 08:01 Chief Complaint: Abnormal CT abdomen, diverticulitis Narrative: This is an 80-year-old woman who presents for colonoscopy. Her last colonoscopy was 3 years ago. She has had previous history of diverticulitis and occasional diarrhea. She recently had a CT which showed evidence of rectal wall thickening. Review of Systems Review of Systems: All systems reviewed & are unremarkable except as noted in HPI and below Constitutional: Constitutional: Denies chills, Denies fever(s), Denies headache(s) and Denies weight loss Eyes: Eyes: Denies change in vision ENT: Denies dizziness, Denies headache(s), Denies neck mass and Denies throat swelling Cardiovascular: Cardiovascular: Denies chest pain, Denies lightheadedness and Denies dyspnea Respiratory: Respiratory: Denies cough, Denies dyspnea and Denies wheezing Gastrointestinal: Gastrointestinal: Denies abdominal pain, Denies change in bowel habits, Denies nausea and Denies vomiting Genitourinary: Genitourinary: Denies hematuria and Denies dysuria Musculoskeletal: Musculoskeletal: Reports as per HPI Integumentary/Breasts: Skin/Breast: Reports as per HPI Neurologic: Denies dizziness and Denies headache(s) Allergic/Immunologic: Allergic/Immunologic: Denies throat swelling and Denies wheezing PMF Past Medical History Medical History (Updated 06/16/25 @ 08:03 by Drake Heller DO) Obese AV (iron deficiency anemia) Generalized abdominal pain Diarrhea Brain tumor (benign) Hypothyroidism Hypercholesteremia Hypertension Surgical History Surgical History H/O: knee surgery History of cholecystectomy H/O: hysterectomy Family History Family History Other Cerebrovascular accident Hypertension Social History Social History Smoking status: Never smoker Alcohol intake: current Drinks per week: 1 Substance use: never Substance use type: does not use Living arrangements: with family Gender identity (if verbalized by the patient): Female Spiritual care concerns: No Meds Home Medications and Allergies Home Medications ?Medication ?Instructions ?Recorded ?Confirmed ?Type acetaminophen 500 mg tablet 1,000 mg PO Q4-5H PRN Pain 10/15/19 06/16/25 History (Acetaminophen Extra Strength) cetirizine 10 mg tablet (Zyrtec) 10 mg PO DAILY 10/15/19 06/16/25 History cholecalciferol (vitamin D3) 50 2,000 unit PO DAILY 10/15/19 06/16/25 History mcg (2,000 unit) chewable tablet levothyroxine 88 mcg tablet 88 mcg PO DAILY 10/15/19 06/16/25 History losartan 50 mg tablet 100 mg PO DAILY 10/15/19 06/16/25 History omeprazole 20 mg tablet,delayed 20 mg PO DAILY 10/15/19 06/16/25 History release Lactobacillus acidophilus and 1 cap PO DAILY 06/07/25 06/16/25 History rhamnosus 15 billion cell capsule (Florajen Women) atorvastatin 10 mg tablet (Lipitor) 10 mg PO DAILY 06/07/25 06/16/25 History Allergies Allergy/AdvReac Type Severity Reaction Status Date / Time No Known Allergies Allergy Mild Verified 05/10/22 06:31 Vital Signs Vital Signs - 24 hr 06/16/25 06:39 Temperature 97 F L Pulse Rate 71 Respiratory Rate 18 Blood Pressure 167/68 H Pulse Oximetry 99 Oxygen Delivery Room Air Exam Const: General: no acute distress and alert Orientation/consciousness: patient oriented x3 HENMT: Head: normocephalic and atraumatic Ears: hearing grossly normal bilaterally Face/Nose/Sinus: Normal nares present Mouth: Yes Normal oral and palatal mucosa present Eyes: Periorbital: periorbital findings normal Sclera: sclerae normal EOM: EOMs intact bilaterally Neck: Neck: normal visual inspection, no lymphadenopathy and trachea midline Chest: Chest palpation & inspection: normal inspection of the chest Resp: Effort & Inspection: normal respiratory effort Auscultation: clear to auscultation bilaterally Cardio: Jugular venous distension: no JVD Rate: regular rate Rhythm: regular rhythm Heart sounds: S1 normal heart sound present and S2 normal heart sound present Peripheral pulses: Peripheral pulses 2+ throughout GI: Inspection: normal to inspection GI Palp: Yes Soft to palpation, No Tenderness to palpation present (GI), No Guarding due to palpation present (GI) and No Rebound tenderness present Percussion: Yes normal to percussion Auscultation: normal bowel sounds : General: Yes no CVA tenderness Back/Spine/Pelvis: Back: no CVA tenderness Neuro: General: patient oriented x3, no focal motor deficits and CN's II-XI intact bilaterally Cognition (Neuro): normal cognition Speech: normal speech Motor exam (neuro): 5/5 motor strength present throughout Extrem: General: capillary refill normal and no clubbing, cyanosis or edema Assessment and Plan Assessment and plan (1) Abnormal CT of the abdomen: Code(s): R93.5 - Abnormal findings on diagnostic imaging of other abdominal regions, including retroperitoneum Status: Acute Assessment and Plan: I have recommended colonoscopy. I have discussed the procedure, risks, benefits, and alternatives. Questions were answered. Patient is agreeable to proceed. (2) Diverticulitis large intestine w/o perforation or abscess w/o bleeding: Code(s): K57.32 - Diverticulitis of large intestine without perforation or abscess without bleeding Status: Acute
[2025-06-16 08:30] VITALS: BP 118/82; PULSE 64; RESP 19; O2SAT 99
[2025-06-16 08:40] VITALS: BP 174/78; PULSE 64; RESP 21; O2SAT 99
[2025-06-16 08:50] VITALS: BP 142/71; PULSE 6; RESP 18; O2SAT 99
== END 2025-06-16 09:03 | disposition home or self-care (01) ==
PROVIDERS: PCP Internal Medicine; Visit Provider Surgery
PROC: 0DJD8ZZ Inspection of Lower Intestinal Tract, Via Natural or Artificial Opening Endoscopic (ICD-10-PCS; CPT 45378; principal; 2025-06-16 08:00)
DX: R93.5 Abnormal findings on diagnostic imaging of other abdominal regions, including retroperitoneum (principal); K64.8 Other hemorrhoids; K57.30 Diverticulosis of large intestine without perforation or abscess without bleeding; I10 Essential (primary) hypertension; E03.9 Hypothyroidism, unspecified; D50.9 Iron deficiency anemia, unspecified; E78.00 Pure hypercholesterolemia, unspecified; E66.9 Obesity, unspecified; Z68.31 Body mass index [BMI] 31.0-31.9, adult; Z98.890 Other specified postprocedural states; Z90.49 Acquired absence of other specified parts of digestive tract; Z87.19 Personal history of other diseases of the digestive system
CPT/HCPCS: 45378; J2704; J7120

== ENCOUNTER 2025-07-21 16:28 | Outpatient (CLI) | payer MEDICARE, SELFPAY ==
--- OUTSIDE RECORDS SUMMARY | 2024-08-26 21:50 | XMS_ITS ---
Author Organization [facility] Address [address] [place], [place] [id number] Care Team Providers Care Bobbin Collector Name Role Phone Missy Ray Primary Care Provider Unavailabl MICHELLE Russell Unavailable [phone] REASON FOR VISIT *General care Encounters Encounter Location Date Provider Diagnosis [address] [id number] 08/27/2024 MICHELLE ZAMBRANO Plan Of Treatment Next Appt Details Provider Name:CRISTOFER KIMBALL, 07/22/2025 01:30:00 PM, [address] [place] [address], [phone], Progress Notes * YU GRAVESB:1945 (80 yo F)Acc No.[id number]:08/27/2024 Patient: GRACIA RAPHAEL Provider: Brigid Zambrano DPM :1945 A ge:79 Y S ex:Female Date:08/27/2024 Address: [address], [place], [id number] Pcp:Missy Ray Subjective: * Chief Complaints: * * General care Billing Information: * Procedure Codes: * Electronic signature of MICHELLE ZAMBRANO DPM on 07/21/2025 at 09:00 PM COMPOSITE BOND TECHNICIAN Sign off status: Pending * Provider: Brigid Zambrano DPM Date: 0 08/27/2024 Generated for Printi ng/Faana laurag/eTransmitting on: 1 09/21/2024 09:00 PM COMPOSITE BOND TECHNICIAN
--- OUTSIDE RECORDS SUMMARY | 2024-12-31 08:50 | XMS_ITS ---
Author Organization [facility] Address [address] [place], [place] [address] Care Team Providers Care Logging Operations Inspector Name Role Phone Missy Ray Primary Care Provider UnavailMICHELLE Abebe Unavailable [phone] CRISTOFER JUNIOR Unavailable [phone] REASON FOR VISIT *General care Medications Medication SIG (Take, Route, Frequency, Duration) Notes Start Date End Date Status Atorvastatin Calcium 10 MG Tablet TAKE 1 TABLET BY MOUTH EVERY DAY Oral; Duration: 90 Days Active Levothyroxine Sodium 88 MCG Tablet Oral; Duration: 90 Days Acti ve Losartan Potassium 50 MG Tablet Oral; Duration: 90 Days Acti ve Omeprazole 20 MG Capsule Delayed Release Oral; Duration: 90 Days A ctive Social History Social History Additional Details Category Social Info Options Details Migrated Social History Migrated Social History Alcohol intake : , History of tobacco use : , Smoking Status : Never used tobacco Vital Signs Height 63.00 in 12/31/2024 Weight 186 lbs 12/31/2024 BMI 32.94 kg/m2 12/31/2024 Height-cm 160.02 cm 12/31/2024 Weight-kg 84.37 kg 12/31/2024 Encounters Encounter Location Date Provider Diagnosis [address] [id number] 12/31/2024 CRISTOFER JUNIOR Tinea unguium B35.1 ; Pain in right foot M79.671 ; Pain in left foot M79.672 ; Atherosclerosis of redding arteries of extremities with intermittent claudication, bilateral legs I70.213 ; Acquired keratosis [keratoderma] palmaris et plantaris L85.1 ; Localized edema R60.0 and Primary osteoarthritis, left ankle and foot M19.072 Assessments Encounter Date Diagnosis (ICD Code) Assessment Notes Treatment Notes Treatment Clinical Notes Section Notes 12/31/2024 Tinea unguium (ICD-10 - B35.1) Nails 1-5 Bilateral were debrided extensively with nail nippers and emery board, reducing length and girth to pink healthy tissue with any subungual debris and necrotic tissue removed 12/31/2024 Pain in right foot (ICD-10 - M79.671) 12/31/2024 Pain in left foot (ICD-10 - M79.672) 12/31/2024 Atherosclerosis of redding arteries of extremities with intermittent claudication, bilateral legs (ICD-10 - I70.213) Check and protect LE bilateral daily. Call if any changes or concerns. 12/31/2024 Acquired keratosis [keratoderma] palmaris et plantaris (ICD-10 - L85.1) A total of 1 corns or calluses, as described in the note above, were cut and pared utilizing a #15 blade 12/31/2024 Localized edema (ICD-10 - R60.0) Edema Recommendations: Advised patient on edema treatment recommendations. Recommendation for periodic elevation of feet and lower legs through the day. Recommend support compression hose. Recommend dietary restrictions salt intake. Followup with family physician for potential diuretic management if needed. 12/31/2024 Primary osteoarthritis, left ankle and foot (ICD-10 - M19.072) Arch Supports OTC: Discussed various options for supporting the foot. Patient wishes to try over the counter arch supports. I recommend PowerStep or SuperFeet inserts. Supportive wide toebox shoes were also discussed. Plan Of Treatment Treatment Notes Assessment Notes Tinea unguium Nails 1-5 Bilateral were debrided extensively with nail nippers and emery board, reducing length and girth to pink healthy tissue with any subungual debris and necrotic tissue removed Atherosclerosis of redding ar teries of extremities with intermittent claudication, bilateral legs Check and protect LE bilateral daily. Call if any changes or concerns. Acquired keratosis [keratode rma] palmaris et plantaris A total of 1 corns or calluses, as described in the note above, were cut and pared utilizing a #15 blade Localized edema Edema Recommendations: Advised patient on edema treatment recommendations. Recommendation for periodic elevation of feet and lower legs through the day. Recommend support compression hose. Recommend dietary restrictions salt intake. Followup with family physician for potential diuretic management if needed. Primary osteoarthritis, left ankle and f oot Arch Supports OTC: Discussed various options for supporting the foot. Patient wishes to try over the counter arch supports. I recommend PowerStep or SuperFeet inserts. Supportive wide toebox shoes were also discussed. Next Appt Details Follow Up: 10 - 12 weeks, Re ason: At-Risk Foot care, sooner if problems develop. Provider Name:CRISTOFER KIMBALL, 07/22/2025 01:30:00 PM, [address] [place] [address], [id number], History and Physical Notes * HPI (History [...] Date last seen by Dr. Ray was 11/2024., Initials mca Examination Category Sub-Category Detail Notes Category Not es Dermatologic Skin findings: Skin is thin, at rophic and lacking pedal hair Nail pathology: Nails 1, 2, 3, 4, an d 5 bilateral are elongated, thick, discolored, and dystrophic with subungual debris. They are painful to palpation Hypertrophic / hyperkeratotic lesion: pl ophelia aspect of the right 1st metatarsal head Neurologic Gross sensation Gross sensation is intact to light touch Vascular Dorsalis pedis pulse: 1/4 bilateral Edema: +1 bilateral pitting edema Capillary refill: greater than 3 secon ds Posterior tibial pulse: 0/4 bilateral Musculoskeletal Muscle Strength Muscle strength is 5/5 in regards to dorsiflexion, plantarflexion, inversion, and eversion in bilateral lower extremities Hallux Abducto Valgus There is evidence of bunion deformity right and left foot, painful at end range of dorsiflexion. The range of motion is limited Tailors Bunion There is evidence of tailors bunion deformity right and left foot. Constitutional Constitutional The patient is a wake, alert, well developed, well groomed and well nourished Progress Notes * OSORIO GRAVESGOLDYB:1945 (80 yo F)Acc No.[id number]:12/31/2024 Patient: GRACIA RAPHAEL Provider: Lorena JUNIOR :1945 A ge:79 Y S ex:Female Date:12/31/2024 Address:[address] [place] [address], [facility], [id number] Pcp:Missy Ray Subjective: * Chief Complaints: * * General care * HPI: H PI: General care P jeanne presents to the office for at risk foot care. Patient states that their nails are thickened, elongated and painful. Patient states that it is aggravated by shoe gear. Onset is gradual. Patient denies being diabetic., Patient denies taking blood thinners., Date last seen by Dr. Ray was 11/2024., Initials mca. * ROS: G eneral / Constitutional: Patient denies w eakness. C ardiovascular: Patient denies c hest pain, history of [place], irregular heartbeat. M usculoskeletal: Patient complains of h ammertoes. A rthritis / arthralgia a dmits. S kin: Patient complains of f ungal nails, , nail changes. ? N eurologic: Patient denies d izziness, gait abnormality, headache. * Social History: M igrated Social History: M igrated Social History: Alcohol intake : , History of tobacco use : , Smoking Status : Never used tobacco. Social History Verified. * Medications: T akingAtorvastatin Calcium 10 MG [...] List reviewed and reconciled with the patient Objective: * Vitals: W t: 186 lbs, Wt-k.37 kg, Ht: 63.00 in, Ht-cm: 160.02 cm, BMI: 32.94 Index, Body Surface Area: 1.93. * Examination: C onstitutional: Constitutional T he patient is awake, alert, well developed, well groomed and well nourished. D ermatologic: Skin findings: S kin is thin, atrophic and lacking pedal hair. Hypertrophic / hyperkeratotic lesion: p lantar aspect of the right 1st metatarsal head. Nail pathology: N ails 1, 2, 3, 4, and 5 bilateral are elongated, thick, discolored, and dystrophic with subungual debris. They are painful to palpation. ? V ascular: Dorsalis pedis pulse: 1 /4 b ilateral. Posterior tibial pulse: 0 /4 b ilateral. Capillary refill: g reater than 3 seconds. Edema: + 1 b ilateral p itting edema. ? N eurologic: Gross sensation G ross sensation is intact to light touch.? M usculoskeletal: Muscle Strength M uscle strength is 5/5 in regards to dorsiflexion, plantarflexion, inversion, and eversion in bilateral lower extremities. Hallux Abducto Valgus T here is evidence of bunion deformityright and left foot, p ainful at end range of dorsiflexion. T he range of motion is l imited. Tailors Bunion T here is evidence of tailors bunion deformity r ight and left foot.. Assessment: * Assessment: 1. T inea unguium - B35.1 (Primary) 2 . P ain in right foot - M79.671 ? 3 . P ain in left foot - M79.672 4 . A therosclerosis of redding arteries of extremities with intermittent claudication, bilateral legs - I70.213 5 . 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 L ocalized edema - R60.0 7 . P rimary osteoarthritis, left ankle and foot - M19.072 Plan: * Treatment: 2. A therosclerosis of redding arteries of extremities with intermittent claudication, bilateral legs Notes: Check and protect LE bilateral daily. Call if any changes or concerns. 3. A cquired keratosis [keratoderma] palmaris et plantaris Notes: A total of 1 corns or calluses, as described in the note above, were cut and pared utilizing a #15 blade 4. L ocalized edema Notes: Edema Recommendations: Advised patient on edema treatment recommendations. Recommendation for periodic elevation of feet and lower legs through the day. Recommend support compression hose. Recommend dietary restrictions salt intake. Followup with family physician for potential diuretic management if needed. 5. P rimary osteoarthritis, left ankle and foot Notes: Arch Supports OTC: Discussed various options for supporting the foot. Patient wishes to try over the counter arch supports. I recommend PowerStep or SuperFeet inserts. Supportive wide toebox shoes were also discussed.? * Procedure Codes: 1 1721 DEBRIDE NAIL, 6 OR MORE, Modifiers: Q8 * Follow Up: 1 0 - 12 weeks (Reason: At-Risk Foot care, sooner if problems develop.) Billing Information: * Procedure Codes: 05791 DEBRIDE NAIL, 6 OR MORE. Modifiers: Q8 * Electronic signature of ESME JUNIOR DPM on 07/21/2025 at 09:00 PM CORE INSERTER Sign off status: Pending * Provider: Lorena JUNIOR Date: 0 12/31/2024 Generated for Aaliyah shah/Miguelina/Morgan on: 1 09/21/2024 09:00 PM CORE INSERTER
--- OUTSIDE RECORDS SUMMARY | 2025-03-11 08:10 | XMS_ITS ---
Author Organization [facility] Address [address] [place], [place] [address] Care Team Providers Care Patient Intake Representative Name Role Phone Missy Ray Primary Care Provider MICHELLE Reveles Unavailable [phone] CRISTOFER JUNIOR Unavailable [phone] REASON FOR VISIT *General care Medications Medication SIG (Take, Route, Frequency, Duration) Notes Start Date End Date Status Omeprazole 20 MG Capsule Delayed Release Oral; Duration: 90 Days A ctive Atorvastatin Calcium 10 MG Tablet TAKE 1 TABLET BY MOUTH EVERY DAY Oral; Duration: 90 Days Active Losartan Potassium 50 MG Tablet Oral; Duration: 90 Days Acti ve Levothyroxine Sodium 88 MCG Tablet Oral; Duration: 90 Days Acti ve Encounters Encounter Location Date Provider Diagnosis [address] [id number] 03/11/2025 CRISTOFER JUNIOR Tinea unguium B35.1 ; Pain in right foot M79.671 ; Pain in left foot M79.672 ; Atherosclerosis of [place] arteries of extremities with intermittent claudication, bilateral legs I70.213 ; Acquired keratosis [keratoderma] palmaris et plantaris L85.1 ; Localized edema R60.0 and Primary osteoarthritis, left ankle and foot M19.072 Assessments Encounter Date Diagnosis (ICD Code) Assessment Notes Treatment Notes Treatment Clinical Notes Section Notes 03/11/2025 Tinea unguium (ICD-10 - B35.1) Nails 1-5 Bilateral were debrided extensively with nail nippers and emery board, reducing length and girth to pink healthy tissue with any subungual debris and necrotic tissue removed 03/11/2025 Pain in right foot (ICD-10 - M79.671) 03/11/2025 Pain in left foot (ICD-10 - M79.672) 03/11/2025 Atherosclerosis of [place] arteries of extremities with intermittent claudication, bilateral legs (ICD-10 - I70.213) Patient educated on risks and aggravating factors of PVD, including conservative treatment options such as a diet and exercise regimen to aid in slowing progression of vascular disease. Check and protect LE bilateral daily. Call if any changes or concerns. 03/11/2025 Acquired keratosis [keratoderma] palmaris et plantaris (ICD-10 - L85.1) A total of 2 corns or calluses, as described in the note above, were cut and pared utilizing a #15 blade 03/11/2025 Localized edema (ICD-10 - R60.0) Edema Recommendations: Advised patient on edema treatment recommendations. Recommendation for periodic elevation of feet and lower legs through the day. Recommend support compression hose. Recommend dietary restrictions salt intake. Followup with family physician for potential diuretic management if needed. 03/11/2025 Primary osteoarthritis, left ankle and foot (ICD-10 [...] debris and necrotic tissue removed Atherosclerosis of [place] ar teries of extremities with intermittent claudication, bilateral legs Patient educated on risks and aggravatin g factors of PVD, including conservative treatment options such as a diet and exercise regimen to aid in slowing progression of vascular disease. Check and protect LE bilateral daily. Call if any changes or concerns. Acquired keratosis [keratode rma] palmaris et plantaris A total of 2 corns or calluses, as described in the [...] care, sooner if problems develop. Provider Name:CRISTOFER Denise CATA ULLOAELBA, 07/22/2025 01:30:00 PM, [address] [place] [address], [id number], History and Physical Notes * Examination Category Sub-Category Detail Notes Category Not es Dermatologic Skin findings: Skin is thin, at rophic and lacking pedal hair Nail pathology: Nails 1, 2, 3, 4, an d 5 bilateral are elongated, thick, discolored, and dystrophic with subungual debris. They are painful to palpation Hypertrophic / hyperkeratotic lesion: pl ophelia aspect of the right 1st metatarsal head and 1st pipj Neurologic Gross sensation Gross sensation is intact [...] groomed and well nourished Progress Notes * YU GRAVESB:1945 (80 yo F)Acc No.[id number]:03/11/2025 Patient: GRACIA RAPHAEL Provider: Lorena JUNIOR :1945 A ge:80 Y S ex:Female Date:03/11/2025 Address: [place] [facility] Pcp:Missy Ray Subjective: * Chief Complaints: * * General care * ROS: G eneral / Constitutional: Patient denies w eakness. C ardiovascular: Patient denies c hest pain, history of [place], irregular heartbeat. M usculoskeletal: Patient complains of h ammertoes. A rthritis / arthralgia a dmits. S kin: Patient complains of f ungal nails, , nail changes. ? N eurologic: Patient denies d izziness, gait abnormality, headache. * Medications: T akingAtorvastatin Calcium 10 MG Tablet TAKE 1 TABLET BY MOUTH EVERY DAY Oral Levothyroxine Sodium 88 MCG Tablet Oral Losartan Potassium 50 MG Tablet Oral Omeprazole 20 MG Capsule Delayed Release Oral Taking Atorvastatin Calcium 10 MG Tablet TAKE 1 TABLET BY MOUTH EVERY DAY Oral Taking Levothyroxine Sodium 88 MCG Tablet Oral Taking Losartan Potassium 50 MG Tablet Oral Taking Omeprazole 20 MG Capsule Delayed Release Oral Objective: * Examination: C onstitutional: Constitutional T he patient is awake, alert, well developed, well groomed and well nourished. D ermatologic: Skin findings: S kin is thin, atrophic and lacking pedal hair. Hypertrophic / hyperkeratotic lesion: p lantar aspect of the right 1st metatarsal head and 1st pipj. Nail pathology: N ails 1, 2, 3, [...] - M79.672 4 . A therosclerosis of [place] arteries of extremities with intermittent claudication, bilateral legs - I70.213 5 . 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 L ocalized edema - R60.0 7 . P rimary osteoarthritis, left ankle and foot - M19.072 Plan: * Treatment: 2. A therosclerosis of [place] arteries of extremities with intermittent claudication, bilateral legs Notes: Patient educated on risks and aggravating factors of PVD, including conservative treatment options such as a diet and exercise regimen to aid in slowing progression of vascular disease. Check and protect LE bilateral daily. Call if any changes or concerns. 3. A cquired keratosis [keratoderma] palmaris et plantaris Notes: A total of 2 corns or calluses, as described in the [...] were also discussed.? * Procedure Codes: 1 1056 TRIM SKIN LESIONS, 2 TO 4, Modifiers: Q8 63070 DEBRIDE NAIL, 6 OR MORE, Modifiers: 59 , Q8 * Follow Up: 1 0 - 12 weeks (Reason: At-Risk Foot care, sooner if problems develop.) Billing Information: * Procedure Codes: 89665 TRIM SKIN LESIONS, 2 TO 4. Modifiers: Q8 47408 DEBRIDE NAIL, 6 OR MORE. Modifiers: 59, Q8 * Electronic signature of ESME JUNIOR DPM on 07/21/2025 at 09:00 PM CLOTH FEEDER Sign off status: Pending * Provider: Lorena JUNIOR Date: 0 03/11/2025 Generated for Aaliyah shah/Miguelina/Moralesitting on: 09/21/2024 09:00 PM CLOTH FEEDER
--- NOTE | ~2025-07-21 | XR_ITS ---
EXAMINATION: XR knee LT 3V DATE: 07/21/2025 16:52 INDICATION: Knee pain TECHNIQUE: Left knee x-rays were obtained. COMPARISON: December 2023 FINDINGS: Tricompartmental osteoarthritic degenerative changes not significantly changed from the previous exam with severe joint space narrowing in the medial compartment An milder changes at the patellofemoral joint and lateral joint space. No acute or aggressive bony or soft tissue process. Small suprapatellar effusion may be present. Vascular calcification in the soft tissues. IMPRESSION: 1. No acute or aggressive bony or soft tissue process seen, although a small joint effusion may be present. 2. For persisting knee pain refractory to conservative therapy, consider correlation with left knee MRI for optimal sensitivity. Reviewed, dictated and finalized at location A. [facility] IMPRESSION: 1. No acute or aggressive bony or soft tissue process seen, although a small ahilee int effusion may be present. 2. For persisting knee pain refractory to conservative therapy, consider correl ation with left knee MRI for optimal sensitivity.
--- OUTSIDE RECORDS SUMMARY | 2025-07-21 21:00 | XMS_ITS | Encounter Summary ---
Author Organization [facility] Address [address] [place] [address] Care Team Providers Care Banquet Waiter/Waitress Name Role Phone Unavailable Primary Care Provider Unavailabl e Encounter Details Date Type Department Care Team (Late st Contact Info) Description 07/23/2018 Lab Requisition 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 Gender Identity Not on file Sexual Orientation Not on file documented as of this encounter Plan of Treatment Not on file documented as of this encounter Procedures Procedure Name Priority Date/Time Associated Diagnosis Comments FLOW CYTOMETRY TISSUE PANEL Routine 07/23/2018 12:37 PM STUD DAIRY CATTLE FARMER Generalized enlarged lymph nodes documented in this encounter Results * FLOW CYTOMETRY TISSUE PANEL (07/23/2018 12:37 PM STUD DAIRY CATTLE FARMER) Case Report Flow Cytometry Case: [id number] Authorizing Provider: Fernando Jean MD Collected: 07/23/2018 12:37 PM Pathologist: Micheline Pineda MD Received: 07/23/2018 03:19 PM Specimen: Lymph Node 8 7:38 AM [facility] Final Diagnosis Lymph node, left inguinal, flow cytometric immunophenotypic analysis: - Elevated CD4:CD8 ratio (12:1). - See interpretation. 8 7:38 AM [facility] at [address] [facility] Flow Cytometry Interpretation The left inguinal lymph [...] the flow cytometry specimen is reviewed for chief vendor quality purposes. The left inguinal lymph node shows the presence of an elevated CD4:CD8 ratio. The etiology for this process may be reactive in nature, or this could represent a lymphoproliferative process. Correlation with clinical findings and the concurrent tissue biopsy is required. KR/NW 8 7:38 AM [facility] Flow Cytometry Results Differential Result Comment Flow Cell Count /uL 1380 Total Viability % 35.0 Lymphocytes % 78 Dim CD45 Region % 3 Monocytes % 6 Granulocytes % 9 8 7:38 AM [facility] Reason for test Generalized enlarged lymph nodes 785.6 8 7:38 AM [facility] Client Specimen ID # [id number] 8 7:38 AM [facility] Number of markers 16 were performed. A Flow CD3 A Flow CD10 A Flow CD20 A Flow CD23 A Flow CD2 A Flow CD4 A Flow CD1a A Flow CD5 A Flow CD19 A Flow CD34 A Flow CD45 A Flow CD7 A Flow CD8 A Flow CD30 A [place]+CD19+ A Lambda+CD19+ 8 7:38 AM [facility] Disclaimer Test performed at [facility], [address] [place] [address], [id number]. *The established laboratory minimum viability is 70%. [...] high complexity clinical testing. 8 7:38 AM STUD DAIRY CATTLE FARMER [facility] PATHOLOGY LAB Embedded Images 8 7:38 AM STUD DAIRY CATTLE FARMER [facility] PATHOLOGY LAB Pathology/Cytolo gy ENTIRE LYMPH NODE / Unknown 07/23/2018 12:37 PM STUD DAIRY CATTLE FARMER 07/23/2018 3:19 PM STUD DAIRY CATTLE FARMER Fernando Jean MD LAB - PATHOLOGY/CYTOLOGY ORDER BOYD Final Result [facility] PATHOLOGY [facility] [address] [phone] documented in this encounter Visit Diagnoses Diagnosis Generalized enlarged lymph nodes Enlargement of lymph nodes documented in this encounter
--- OUTSIDE RECORDS SUMMARY | 2025-07-21 21:00 | XMS_ITS | Encounter Summary ---
Author Organization [facility] Address [address] [place] [address] Care Team Providers Care Rubber Goods Cutter Finisher Name Role Phone Unavailable Primary Care Provider Unavailabl e Encounter Details Date Type Department Care Team (Late st Contact Info) Description 03/21/2022 Lab Requisition [facility] DermPath Lab [address] [place] [id number] Terrance Vyas MD [address] [place] [address] Social History Tobacco Use Types Packs/Day Years Used Date Smoking Tobacco: Never Assessed Comments Unknown Sex and Gender Information Value Date Recorded Sex Assigned at Not on file 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 Gender Identity Not on file Sexual Orientation Not on file documented as of this encounter Plan of Treatment Not on file documented as of this encounter Procedures Procedure Name Priority Date/Time Associated Diagnosis Comments DERMATOPATHOLOGY Routine 03/20/2022 3:33 AM CDT documented in this encounter Results * DERMATOPATHOLOGY (03/20/2022 3:33 AM CDT) Case Report Dermatopathology Report Case: [id number] Authorizing Provider: Terrance Vyas MD Collected: 03/20/2022 03:33 AM Ordering Location: [facility] DermPath Lab Received: 03/21/2022 11:09 AM [...] specimen consists of a shave biopsy measuring [id number]. Jar 0. 2 3:59 PM CDT DERMATOPATHOLOGY [...] characteristic determined by the Dermatopathology Laboratory at [facility], directed by Dr. Rene Vaughan. These tests need not be, and therefore are not, approved by the [place] Food and Drug Administration. The tests are used for clinical purposes. Billing Codes Specimen Charges Stain Charges 82666 1 2 3:59 PM CDT DERMATOPATHOLOGY LABORATORY Embedded Images 2 3:59 PM CDT DERMATOPATHOLOGY LABORATORY Pathology/Cytolo gy TISSUE SPECIMEN FROM SKIN / Unknown 03/20/2022 3:33 AM CDT 03/21/2022 11:09 AM CDT us Terrance Vyas MD LAB - PATHOLOGY/CYTOLOGY ORD ERABLES Final Result DERMATOPATHOLOGY LABORATORY [facility] - Department of Dermatology [address] [place] [address], [facility] [phone] documented in this encounter Visit Diagnoses Not on filedocumented in this encounter
--- OUTSIDE RECORDS SUMMARY | 2025-07-21 21:00 | XMS_ITS | Clinical Summary ---
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
--- OUTSIDE RECORDS SUMMARY | 2025-07-21 21:00 | XMS_ITS | Patient Health Record ---
Author Organization [facility] Address [address] [place], [place] [id number] Care Team Providers Care Waste Recycler Name Role Phone Missy Ray Primary Care Provider MICHELLE Reveles Unavailable [phone] CRISTOFER JUNIOR Unavailable [phone] Allergies No Known Allergies Reason For Referral No Information Medications Medication SIG (Take, Route, Frequency, Duration) Notes Start Date End Date Status Levothyroxine Sodium 88 MCG Tablet Oral; Duration: [...] high dose seasonal Unknown 05/24/2023 Admini stered Social History Social History Additional Details Category Social Info Options Details Migrated Social History Migrated Social History Alcohol intake : , History of tobacco use : , Smoking Status : Never used tobacco Vital Signs Height-cm 160.02 cm 05/13/2025 Weight-kg 84.37 kg 05/13/2025 Height 63.00 in 05/13/2025 Weight 186 lbs 05/13/2025 BMI 32.94 kg/m2 05/13/2025 Encounters Encounter Location Date Provider Diagnosis [address] [id number] 12/31/2024 CRISTOFER JUNIOR Tinea unguium B35.1 ; Pain in right foot M79.671 ; Pain in left foot M79.672 ; Atherosclerosis of [place] arteries of extremities with intermittent claudication, bilateral legs I70.213 ; Acquired keratosis [keratoderma] palmaris et plantaris L85.1 ; Localized edema R60.0 and Primary osteoarthritis, left ankle and foot M19.[address] [id number] 03/11/2025 CRISTOFER JUNIOR Tinea unguium B35.1 ; Pain in right foot M79.671 ; Pain in left foot M79.672 ; Atherosclerosis of [place] arteries of extremities with intermittent claudication, bilateral legs I70.213 ; Acquired keratosis [keratoderma] palmaris et plantaris L85.1 ; Localized edema R60.0 and Primary osteoarthritis, left ankle and foot M19.[address] [id number] 05/13/2025 CRISTOFER JUNIOR Tinea unguium B35.1 ; Pain in right toe(s) M79.674 ; Pain in left toe(s) M79.675 ; Atherosclerosis of [place] arteries of extremities with intermittent claudication, bilateral legs I70.213 ; Acquired keratosis [keratoderma] palmaris et plantaris L85.1 ; Pain in right foot M79.671 ; Pain in left foot M79.672 ; Localized edema R60.0 and Primary osteoarthritis, left ankle and foot M19.[address] [id number] 08/27/2024 MICHELLE SNOOK Tinea unguium B35.1 ; Pain in right toe(s) M79.674 ; Pain in left toe(s) M79.675 ; Atherosclerosis of [place] arteries of extremities with intermittent claudication, bilateral legs I70.213 and Acquired keratoderma L85.[address] [id number] 10/29/2024 MICHELLE SNOOK Tinea unguium B35.1 ; [...] (ICD-10 - M79.671) 05/13/2025 Pain in right toe(s) (ICD-10 - M79.674) 05/13/2025 Pain in left toe(s) (ICD-10 - M79.675) 03/11/2025 Pain in left foot (ICD-10 - M79.672) 12/31/2024 Pain in left foot (ICD-10 - M79.672) 10/29/2024 Pain in left foot (ICD-10 - M79.672) 08/27/2024 Pain in left toe(s) (ICD-10 - M79.675) 08/27/2024 Atherosclerosis of [place] arteries of extremities with intermittent claudication, bilateral legs (ICD-10 - I70.213) 10/29/2024 Atherosclerosis of [place] arteries of extremities with intermittent claudication, bilateral legs (ICD-10 - I70.213) 12/31/2024 Atherosclerosis of [place] arteries of extremities with intermittent claudication, bilateral legs (ICD-10 - I70.213) Check and protect LE bilateral daily. Call if any changes or concerns. 03/11/2025 Atherosclerosis of [place] arteries of extremities with intermittent claudication, bilateral legs (ICD-10 - I70.213) Patient educated on risks and aggravating factors of PVD, including conservative treatment options such as a diet and exercise regimen to aid in slowing progression of vascular disease. Check and protect LE bilateral daily. Call if any changes or concerns. 05/13/2025 Atherosclerosis of [place] arteries of extremities [...] blade 08/27/2024 Acquired keratoderma (ICD-10 - L85.1) 12/31/2024 Localized edema (ICD-10 - R60.0) Edema [...] for potential diuretic management if needed. 05/13/2025 Pain in right foot (ICD-10 - M79.671) 05/13/2025 Pain in left foot (ICD-10 - M79.672) 03/11/2025 Primary osteoarthritis, left ankle and foot (ICD-10 - M19.072) Arch Supports OTC: Discussed various options for supporting the foot. Patient wishes to try over the counter arch supports. I recommend PowerStep or SuperFeet inserts. Supportive wide toebox shoes were also discussed. 12/31/2024 Primary osteoarthritis, left ankle and foot (ICD-10 - M19.072) Arch Supports OTC: Discussed various options for supporting the foot. Patient wishes to try over the counter arch supports. I recommend PowerStep or SuperFeet inserts. Supportive wide toebox shoes were also discussed. 05/13/2025 Localized edema (ICD-10 - R60.0) Edema [...] Details Provider Name:CRISTOFER KIMBALL, 07/22/2025 01:30:00 PM, [address] [place], [place], [phone], Insurance Providers Payer Name Payer Address Payer Phone Subscriber Number Group Number Insured Name Patient Relationship to Insured Coverage Start Date Coverage End Date Medicare Part B [facility] [address] [place] [address] [id number] GRACIA GRAVES Self - patient is the insured [address] [address] [id number] GRACIA GRAVES Self - patient is the insured
--- OUTSIDE RECORDS SUMMARY | 2025-07-21 21:00 | XMS_ITS | Encounter Summary ---
Author Organization [facility] Address [address] [facility] [place] [address] Care Team Providers Care Clothing Pattern Preparer Name Role Phone Unavailable Primary Care Provider Unavailabl e Encounter Details Date Type Department Care Team (Late st Contact Info) Description 10/04/2021 Lab Requisition [facility] DermPath Lab [address] [place] [phone] Terrance Vyas MD [address] [place], [place] [id number] Social History Tobacco Use Types Packs/Day Years Used Date Smoking Tobacco: Never Assessed Comments Unknown Sex and Gender Information Value Date Recorded Sex Assigned at Not on file Legal Sex Female 11:13 AM BUSINESS ADMINISTRATION INSTRUCTOR Gender Identity Not on file Sexual Orientation Not on file documented as of this encounter Plan of Treatment Not on file documented as of this encounter Procedures Procedure Name Priority Date/Time Associated Diagnosis Comments DERMATOPATHOLOGY Routine 10/03/2021 12:0 0 AM BUSINESS ADMINISTRATION INSTRUCTOR documented in this encounter Results * DERMATOPATHOLOGY (10/03/2021 12:00 AM BUSINESS ADMINISTRATION INSTRUCTOR) Case Report Dermatopathology Report Case: [id number] Authorizing Provider: Terrance Vyas MD Collected: 10/03/2021 12:00 AM Ordering Location: [facility] DermPath Lab Received: 10/04/2021 02:25 PM Pathologist: Den Vaughan MD Specimens: A) - Skin, left central cheek B) - Skin, left proximal ext forearm 2 4:20 PM BUSINESS ADMINISTRATION INSTRUCTOR DERMATOPATHOLOGY LABORATORY Addendum 1 Specimen B: The lesion is not present at the sampled margin of the specimen. 2 4:20 PM BUSINESS ADMINISTRATION INSTRUCTOR DERMATOPATHOLOGY LABORATORY Addendum electronically signed by Den Vaughan MD on 10/09/2021 at 1620 BUSINESS ADMINISTRATION INSTRUCTOR Final Diagnosis Specimen A. SKIN, left central cheek: BASAL CELL CARCINOMA, INFILTRATIVE PATTERN (C44.319) Specimen B. 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 B: R/O BCC. 2 4:20 PM [facility] DERMATOPATHOLOGY LABORATORY Gross Description Specimen A: Received is one formalin filled container labeled with the patient's name and designated left central cheek. The specimen consists of a shave biopsy measuring [id number]. Jar 0. Specimen B: Received is one formalin filled container labeled with the patients name and designated left proximal ext forearm. The specimen consists of a shave removal measuring [id number]. Jar 0. 2 4:20 PM [facility] DERMATOPATHOLOGY LABORATORY Microscopic Description Specimen [...] levels, and dyskeratotic cells. 2 4:20 PM [facility] DERMATOPATHOLOGY LABORATORY Disclaimer An external and internal positive and negative controls are appropriate for the histochemical, immunohistochemical and immunofluorescence stain(s) in this case (if any), except where stated explicitly. The performance characteristics of the stain(s) cited in this report were developed and its performance characteristic determined by the Dermatopathology Laboratory at [facility], directed by Dr. Rene Vaughan. These tests need not be, and therefore are not, approved by the [place] Food and Drug Administration. The tests are used for clinical purposes. Billing Codes Specimen Charges Stain Charges 23083 48602 1 1 2 4:20 PM [facility] DERMATOPATHOLOGY LABORATORY Embedded Images 2 4:20 PM BUSINESS ADMINISTRATION INSTRUCTOR DERMATOPATHOLOGY LABORATORY Pathology/Cytology TISSUE SPECIMEN FROM SKIN / Unknown 10/03/2021 10/04/2021 2:25 PM BUSINESS ADMINISTRATION INSTRUCTOR Miscellaneous samples (specimen) TISSUE SPECIMEN FROM SKIN / Unknown 10/03/2021 10/04/2021 2:25 PM BUSINESS ADMINISTRATION INSTRUCTOR Terrance Vyas MD LAB - PATHOLOGY/CYTOLOGY ORD ERABLES Edited Result - Final DERMATOPATHOLOGY LABORATORY [facility] - Department of Dermatology [facility] [address] [place] [address], [address] [phone] documented in this encounter Visit Diagnoses Not on filedocumented in this encounter
--- OUTSIDE RECORDS SUMMARY | 2025-07-21 21:01 | XMS_ITS | Clinical Summary ---
Author Organization [facility] [address] Address [address] [place] [address] Care Team Providers Care Director Selection And Administration Name Role Phone Rossy Ray MD Primary Care Provider + [phone] Allergies No known active allergies Medications levothyroxine (SYNTHROID) 88 mcg tablet Take 88 mcg by mouth greaser and oiler before breakfast Active losartan (COZAAR) 50 mg [...] on file Legal Sex Female 2:54 AM METER SHOP SUPERINTENDENT Gender Identity Not on file Sexual Orientation Not on file Last Filed Vital Signs Vital Sign Reading Time Taken Comments Blood Pressure 128/70 08/15/2020 2:16 PM METER SHOP SUPERINTENDENT Pulse 74 08/15/2020 2:16 PM METER SHOP SUPERINTENDENT Temperature - - Respiratory Rate - - Oxygen Saturation 97% 08/15/2020 2:16 PM METER SHOP SUPERINTENDENT Inhaled Oxygen Concentration - - Weight 90 kg (198 lb 6.4 oz) 08/15/2020 2:16 PM METER SHOP SUPERINTENDENT Height 160 cm (5' 3) 08/15/2020 2:16 PM METER SHOP SUPERINTENDENT Body Mass Index 35.14 08/15/2020 2:16 PM METER SHOP SUPERINTENDENT Plan of Treatment Not on file Insurance MEDICARE [facility] MEDICARE SUPPLEMENT INSURANCE Care Teams Director Selection And Administration Relationship Specialty Start Date End Date Rossy Ray MD [address] [place], [place] [phone] PCP - General 01/08/13
--- OUTSIDE RECORDS SUMMARY | 2025-07-21 21:01 | XMS_ITS | Clinical Summary ---
Author Organization [facility] Address [address] [facility] [place] [address] Care Team Providers Care Finishing Room Supervisor Name Role Phone Unavailable Primary Care Provider Unavailabl e Source Comments [facility],non-owned Affiliates and Associated Physician Practices is amultiple site organization consisting of ambulatory clinics and hospital sitesin [place], [place], [place] and [place]. This disclosure is being madepursuant to the Care Everywhere program and may not contain all information available regarding this patient. Last updated 18.[facility] [employer] Social History Tobacco Use Types Packs/Day Years Used Date Smoking Tobacco: Never Assessed Comments Unknown Sex and Gender Information Value Date Recorded Sex Assigned at Not on file Legal Sex Female 11:13 AM LIBRARY HISTORIAN Gender Identity Not on file Sexual Orientation [...] DEPRESSION SCREENING 08/12/2024 COVID-19 VACCINE ( - 2024-2 6 season) 2025 INFLUENZA VACCINE (#1) 2025 HEPATITIS [...]
== END 2025-07-21 16:29 | disposition home or self-care (01) ==
LOC: CHSIMG 16:30
PROVIDERS: PCP Internal Medicine; Visit Provider Internal Medicine
DX: M25.562 Pain in left knee (principal)
CPT/HCPCS: 73562